=== PATIENT | male | born 1960 | race African-American/Black ===

== ENCOUNTER 2022-04-02 05:02 | Emergency (ER) | payer MEDICAID, SELFPAY ==
[2022-04-02 05:03] VITALS: BP 161/80; PULSE 67; RESP 18; TEMP 35.8; O2SAT 100; BMI 32.9
--- NOTE | 2022-04-02 05:17 | RAD_ITS ---
EXAM: XR CHEST, 1 VIEW CLINICAL INDICATION: chest pain TECHNIQUE: Frontal view of the chest. This report was created using [employer] report generation technology. COMPARISON: None. FINDINGS: LUNGS AND PLEURAL SPACES: Unremarkable. No consolidation or edema. No pneumothorax. No effusion. HEART: Unremarkable. Cardiac silhouette not enlarged. MEDIASTINUM: Central airways and mediastinal contour are unremarkable. BONES/JOINTS: Unremarkable. SOFT TISSUES: Unremarkable. RAD/Chest 1 View (Portable) IMPRESSION: No radiographic evidence of acute cardiopulmonary disease. Electronically Signed: Miles Wallace MD at 5:58 EST ,
--- NOTE | 2022-04-02 05:17 | EKG12_ITS ---
Test Reason : CP Blood Pressure : / mmHG Vent. Rate : 070 BPM Atrial Rate : 070 BPM P-R Int : 168 ms QRS Dur : 102 ms QT Int : 388 ms P-R-T Axes : 055 042 195 degrees QTc Int : 419 ms Normal sinus rhythm ST & T wave abnormality, consider lateral ischemia Abnormal ECG Confirmed by STEPHANIE MORSE, TATE ([id number]), supervising film or videotape editor ZENOBIA JAMESON ([id number]) on 04/04/2022 9:35:16 AM Referred By: CATHERINE Confirmed By:TATE BROWN MD
--- NOTE | 2022-04-02 05:18 | ED.VIS.CHEST ---
HPI History of Present Illness Chief Complaint: Chest Pain Narrative Narrative: 61-year-old male past medical history of coronary artery disease, states he has 3 stents in his coronary arteries that were placed a year and a half ago. He sees a veterinary poultry inspector in [place]. They recently moved to the area. He presents via EMS and with his son and daughter because he awoke 30 minutes ago with chest pressure that is different than his normal chest pressure. He states he has problems with chronic chest pain, and always has an 8 out of 10 pain. He is supposed to take nitroglycerin as needed. However, he states that this pain seems to be worse today and it woke him from sleep. He denies any nausea or vomiting. No fevers or chills. No cough. No diaphoresis. PFSH PFSH Allergy/AdvReac Type Severity Reaction Status Date / Time No Known Allergies Allergy Verified 04/02/22 05:03 Surgical History H/O heart artery stent Hx of cholecystectomy Social History Smoking Status: Never smoker ROS ROS ED ROS Narrative Constitutional: No fever, no chills. HEENT: No sore throat. No neck pain. No loss of vision. No rhinorrhea. Cardiovascular: Positive chest pain. No palpitations. No pedal edema. Respiratory: No cough, no shortness of breath. Abdominal: No abdominal pain. No nausea. No vomiting. Genitourinary: No dysuria. No hematuria. Musculoskeletal: No myalgias. No arthralgias. Neurologic: No headaches. No dizziness. No lightheadedness. Skin: No rash. No change in color. Psychiatric: No depression. No anxiety. EXAM Physical Exam Narrative Exam Narrative: Afebrile. Vital signs noted. HEENT: Normocephalic. Atraumatic. PERRL, EOMI. Neck soft and supple. No point tenderness or step off. Cardiovascular: Regular rate and rhythm. No murmurs, rubs, or gallops appreciated. Respiratory: No tachypnea. Lungs clear to auscultation bilaterally. Gastrointestinal: Abdomen soft, nontender, with normoactive bowel sounds. No rebound or guarding. Neurological: Awake. Alert. Nonfocal, nonlateralizing. Skin: No rash. Normal color. No pallor. Musculoskeletal: No pedal edema. Full range of motion extremities. Const Vital Signs: 04/02/22 05:03 04/02/22 05:14 04/02/22 05:19 Temperature 96.4 F L Temperature Source Temporal Pulse Rate 67 Respiratory Rate 18 Respiratory Effort Normal Respiratory Pattern Normal Blood Pressure 161/80 H Blood Pressure Mean 107 Pulse Ox 100 Oxygen Delivery Method Room Air Room Air 04/02/22 05:35 Temperature Temperature Source Pulse Rate 75 Respiratory Rate Respiratory Effort Respiratory Pattern Blood Pressure 142/80 H Blood Pressure Mean Pulse Ox Oxygen Delivery Method Heart Score History: Slightly/Non-Suspicious ECG: Normal Age: >45 - <65 years Risk Factors: >/= 3 Risk Factors or History of CAD Score: 3 MDM MDM MDM Narrative Medical decision making narrative: Chest pain work-up was pursued. EKG was obtained and interpreted by myself. EKG demonstrates normal sinus rhythm at 70 bpm without ectopy or acute ST changes. No STEMI. There is no prior with which to compare. He was administered aspirin and nitroglycerin. Pulse ox is 100% on room air. I have less concern for pulmonary embolism as he is not tachycardic, and is satting 100% on room air. I will obtain a chest x-ray and laboratories including troponin. I reviewed the patient's laboratory work. He has a slightly elevated white count of 11.7 which I think is nonspecific, hemoglobin normal at 13.3, platelet count normal at 212. BMP is remarkable for a chloride of 109, normal creatinine of 1.0, glucose appropriately elevated at 101. Normal anion gap of 6. Initial high-sensitivity troponin is 72, which is at the upper end of normal, but still below 78 for male. My interpretation of his chest x-ray shows no acute process. Upon repeat examination at approximately 0605, he is resting comfortably on the cot. At this point in time, he will be signed out to the oncoming physician to check the repeat troponin and make final disposition on this patient. It was felt that should his delta troponin be less than 7, or as long as his troponin does not return positive, that he could be discharged to follow-up with cardiology. Disposition is currently pending repeat troponin in 2 hours. Patient is in stable condition. Lab Data Attestation: I reviewed the patient's lab results. Labs: Laboratory Results - last 24 hr 04/02/22 04/02/22 05:15 05:15 WBC 11.7 H RBC 4.16 L Hgb 13.3 Hct 39.9 L MCV 95.9 H MCH 32.0 MCHC 33.3 RDW Std Deviation 46.1 H RDW Coeff of Subhash 13.2 Plt Count 212 MPV 10.4 Immature Gran % (Auto) 0.300 Neut % (Auto) 42.9 L Lymph % (Auto) 47.8 H [place] % (Auto) 7.5 Eos % (Auto) 1.2 Baso % (Auto) 0.3 Absolute Neuts (auto) 5.0 Absolute Lymphs (auto) 5.59 H Nucleated RBC % 0 Differential Comment SCANNED Sodium 144 Potassium 3.7 Chloride 109 H Carbon Dioxide 29.0 Anion Gap 6 BUN 8 Creatinine 1.00 Estim Creat Clear Calc 84.71 Est GFR (MDRD) Af Amer 98 Est GFR (MDRD) Non-Af 81 BUN/Creatinine Ratio 8.0 L Glucose 101 Calcium 9.5 Troponin I High Sens 72 Radiography Diagnostic Testing: Clinical Impression(s) from Imaging Studies Chest X-Ray 04/02/22 05:17 IMPRESSION: No radiographic evidence of acute cardiopulmonary disease. Electronically Signed: Miles Wallace MD at 5:58 EST , Discharge Plan Triage Chief Complaint: Chest Pain ED Provider: Sadi Hall Dx/Rx/DC Orders Primary Care Provider: Care Physician,No Primary Referrals: Care Physician,No Primary [Primary Care Provider] -
[2022-04-02 05:23] LABS: Absolute Lymphocyte Count 5.59 X10^3/uL (0.83-4.51); Basophil# 0.03 X10^3/uL; Basophil% 0.3 % (0-1); Eosinophil# 0.14 X10^3/uL; Eosinophils% 1.2 % (0-5); Hematocrit 39.9 % (40-54); Hemoglobin 13.3 g/dL (13.0-16.5); Lymphocyte # 5.59 X10^3/ul (0.83-4.51); Lymphocyte % 47.8 % (19-41); Mean Corp Hgb Conc 33.3 g/dL (32-36); Mean Corpuscular Volume 95.9 fL (80-94); Mean Platelet Vol. 10.4 fl (6.2-12.0); Monocyte# 0.88 X10^3/uL; Monocyte% 7.5 % (0-10); NRBC Flagged by Analyzer 0 % (0-5); Neutrophil # 5.02 X10^3/uL (2.7-7.7); Neutrophil % 42.9 % (47-70); POSITIVE DIFFERENTIAL YES; Platelet Count 212 K/mm3 (150-450); RBC Distribution Width CV 13.2 % (11.6-14.6); RBC Distribution Width SD 46.1 fl (35.1-43.9); Red Blood Count 4.16 M/mm3 (4.6-6.2); White Blood Count 11.7 K/mm3 (4.4-11.0)
[2022-04-02] MEDS: Aspirin 81 MG TAB.CHEW 324 MG PO (05:24)
[2022-04-02 05:26] LABS: Differential Indicated SCAN CRITERIA MET
[2022-04-02 05:35] VITALS: BP 142/80; PULSE 75
[2022-04-02] MEDS: Nitroglycerin SL (ED/IMG/CATH) 0.4 MG TABLET SL ×2 (05:35→06:05)
[2022-04-02 05:41] LABS: Anion Gap 6 (5-15); BUN 8 mg/dL (7-18); Calcium,Total 9.5 mg/dL (8.5-10.1); Chloride 109 mmol/L (98-107); EST Glomerular Filtration Rate 81 mL/min (>60); Est Glom Filt Rate - Afr Amer 98 mL/min (>60); Estimated Creatinine Clearance 84.71 ml/min; Glucose 101 mg/dL (74-106); Potassium 3.7 mmol/L (3.5-5.1); Sodium Level 144 mmol/L (136-145); Troponin-I HS (w/2H Reflex) 72 pg/mL (3.0-78.0)
[2022-04-02 05:44] LABS: Differential Comment SCANNED
[2022-04-02 06:05] VITALS: BP 148/87; PULSE 65
--- NOTE | 2022-04-02 06:16 | ED.RN ---
PATIENT DAISY [phone]
[2022-04-02 06:58] VITALS: BP 130/80; PULSE 57; RESP 18; O2SAT 95
[2022-04-02 07:21] LABS: Reflex Troponin-HS? (from REC) Y
[2022-04-02 07:44] LABS: Troponin-I HS 69 pg/mL (3.0-78.0)
[2022-04-02 07:56] VITALS: BP 135/64; PULSE 55; RESP 16
== END 2022-04-02 08:54 | disposition home or self-care (01) ==
PROVIDERS: Emergency Provider Emergency Medicine; Visit Provider Emergency Medicine
DX: R07.9 Chest pain, unspecified (principal); I25.10 Atherosclerotic heart disease of native coronary artery without angina pectoris
CPT/HCPCS: 71045; 80048; 84484; 85025; 93005; 99285; A4216

== ENCOUNTER 2022-04-12 19:08 | Emergency (ER) | payer MEDICAID, SELFPAY ==
[2022-04-12 19:12] VITALS: BP 147/63; PULSE 58; RESP 18; TEMP 36.8; O2SAT 100; BMI 32.5
[2022-04-12 19:43] LABS: Absolute Lymphocyte Count 4.48 X10^3/uL (0.83-4.51); Basophil# 0.03 X10^3/uL; Basophil% 0.3 % (0-1); Eosinophils% 0.9 % (0-5); Hematocrit 38.8 % (40-54); Hemoglobin 12.7 g/dL (13.0-16.5); Lymphocyte # 4.48 X10^3/ul (0.83-4.51); Lymphocyte % 39.4 % (19-41); Mean Corp Hgb Conc 32.7 g/dL (32-36); Mean Corpuscular Hgb 31.9 pg (27.0-32.0); Mean Corpuscular Volume 97.5 fL (80-94); Mean Platelet Vol. 10.2 fl (6.2-12.0); Monocyte# 0.75 X10^3/uL; Monocyte% 6.6 % (0-10); NRBC Flagged by Analyzer 0 % (0-5); Neutrophil # 5.97 X10^3/uL (2.7-7.7); Neutrophil % 52.4 % (47-70); Platelet Count 250 K/mm3 (150-450); RBC Distribution Width CV 13.3 % (11.6-14.6); RBC Distribution Width SD 47.8 fl (35.1-43.9); Red Blood Count 3.98 M/mm3 (4.6-6.2); White Blood Count 11.4 K/mm3 (4.4-11.0)
[2022-04-12] MEDS: Lidocaine 2% (20 ml mdv) 20 ML Vial INFILT (19:51)
[2022-04-12 19:57] LABS: Anion Gap 4 (5-15); BUN 7 mg/dL (7-18); BUN/Creat Ratio 8.3 RATIO (10-20); Calcium,Total 9.3 mg/dL (8.5-10.1); Chloride 109 mmol/L (98-107); Creatinine, Serum 0.84 mg/dL (0.70-1.30); EST Glomerular Filtration Rate 99 mL/min (>60); Est Glom Filt Rate - Afr Amer 120 mL/min (>60); Estimated Creatinine Clearance 100.85 ml/min; Glucose 99 mg/dL (74-106); Potassium 4.1 mmol/L (3.5-5.1); Sodium Level 143 mmol/L (136-145)
--- NOTE | 2022-04-12 21:01 | CM.ED ---
DAVID Note Referral Source: MD Wagoner Referral Reason: resources MD Wagoner met with DAVID to review patient's symptoms and current concerns as well as need for additional resources as he is new to the area. SW to follow up. DAVID met with patient and patient's guest and introduced herself and role as [facility] Litigation Counsel. DAVID requested permission to talk to patient with guests present, patient identified them has his daughter and son and agreed for SW to speak with them present as they help provide his care. Patient states he is new to [place] from [place] and his son is his main support, however, his son works a lot. Patient voiced concerns regarding his PCP being in [place], needing transportation for appointments and wanting help at home. Patient's son also voiced concerns regarding patient needing support at home when he is working and patient's daughter is unable to help. SW to follow up with resources. DAVID met with patient and family and provided them with information for [facility] services, [facility] resource list, private duty C list, PCP list in network accepting new patients in [place], medical alert options as well as information regarding [facility]. DAVID explained due to patient's age there are some programs he may not qualify for now but should qualify as he gets into his 60s. Patient and patient's daughter were present and receptive towards information. No other needs voiced at this time. DAVID informed of resources provided. Holly VENTURA. VICKY
--- NOTE | 2022-04-12 21:17 | EDS_ITS ---
HPI History of Present Illness Chief Complaint: General Illness [facility] PFS Home Medications atorvastatin 40 mg tablet 40 mg DAILY 04/12/22 [History Last Taken Unknown] atorvastatin 40 mg tablet 40 mg PO DAILY #30 tabs 04/12/22 [Rx Last Taken Unknown] carvedilol 6.25 mg tablet 6.25 mg DAILY 04/12/22 [History Last Taken Unknown] carvedilol 6.25 mg tablet 6.25 mg PO BID #60 tabs 04/12/22 [Rx Last Taken Unknown] cholecalciferol (vitamin D3) 125 mcg (5,000 unit) capsule 10,000 unit DAILY 04/12/22 [History Last Taken Unknown] clopidogrel 75 mg tablet 75 mg DAILY 04/12/22 [History Last Taken Unknown] clopidogrel 75 mg tablet 75 mg PO DAILY #30 tabs 04/12/22 [Rx Last Taken Unknown] folic acid 1 mg tablet 1 mg DAILY 04/12/22 [History Last Taken Unknown] folic acid 1 mg tablet 1 mg PO DAILY #30 tabs 04/12/22 [Rx Last Taken Unknown] potassium chloride 20 mEq tablet,extended release(part/cryst) 20 meq PO DAILY 04/12/22 [History Last Taken Unknown] pyridoxine (vitamin B6) 100 mg tablet 100 mg DAILY 04/12/22 [History Last Taken Unknown] pyridoxine (vitamin B6) 100 mg tablet 100 mg PO DAILY #30 tabs 04/12/22 [Rx Last Taken Unknown] Allergy/AdvReac Type Severity Reaction Status Date / Time No Known Allergies Allergy Verified 04/12/22 19:16 Surgical History H/O heart artery stent Hx of cholecystectomy Social History Smoking Status: Never smoker EXAM Physical Exam Const Vital Signs: 04/12/22 19:12 04/12/22 19:16 Temperature 98.3 F Temperature Source Temporal Pulse Rate 58 L Respiratory Rate 18 Respiratory Effort Normal Respiratory Pattern Normal Blood Pressure 147/63 H Blood Pressure Mean 91 Pulse Ox 100 Oxygen Delivery Method Room Air MDM MDM MDM Narrative Medical decision making narrative: Patient is a poor informant. He is new to the area. There is no records for review. In light of his constellation of symptoms will obtain baseline blood work to assess white count, rule out anemia, rule out renal dysfunction. Patient does have a right proximal volar/medial right arm abscess. There is no surrounding cellulitis. Patient has scars from prior incision and drainage of abscesses. There is no axillary lymphadenopathy. Will require I&D. Patient was concerned he had an abscess in the left axilla. Patient has shotty lymph nodes in the left axilla. There is no fluctuant area. There is no erythema, warmth or induration. Case management did speak with him. Patient and family were given paperwork regarding services available in [facility]. Lab Data Attestation: I reviewed the patient's lab results. Lab results narrative: White count is slightly elevated with no shift. This is insignificant. Patient does have mild macrocytic anemia. Basic meta was unremarkable with no diabetes Labs: Laboratory Results - last 24 hr 04/12/22 04/12/22 19:38 19:38 WBC 11.4 H RBC 3.98 L Hgb 12.7 L Hct 38.8 L MCV 97.5 H MCH 31.9 MCHC 32.7 RDW Std Deviation 47.8 H RDW Coeff of Subhash 13.3 Plt Count 250 MPV 10.2 Immature Gran % (Auto) 0.400 Neut % (Auto) 52.4 Lymph % (Auto) 39.4 [place] % (Auto) 6.6 Eos % (Auto) 0.9 Baso % (Auto) 0.3 Absolute Neuts (auto) 6.0 Absolute Lymphs (auto) 4.48 Nucleated RBC % 0 Sodium 143 Potassium 4.1 Chloride 109 H Carbon Dioxide 30.0 Anion Gap 4 L BUN 7 Creatinine 0.84 Estim Creat Clear Calc 100.85 Est GFR (MDRD) Af Amer 120 Est GFR (MDRD) Non-Af 99 BUN/Creatinine Ratio 8.3 L Glucose 99 Calcium 9.3 Procedures Other Procedures Procedure(s): Patient had an I&D of proximal medial right arm subcutaneous abscess. Patient was prepped up sterile manner. The area anesthetized by local anesthesia infiltration and field block. Incision was made with 10 blade. Length of incision 1.5 cm. 3 cm of green purulent material was noted. Since patient does not have diabetes is on no immunosuppressive meds and there is no evidence of cellulitis antibiotics are not indicated. Will obtain med list from [facility] in [place] and refill since he has none. Discharge Plan Triage Chief Complaint: General Illness ED Provider: Jon Wagoner Dx/Rx/DC Orders Clinical Impression: Abscess of arm, right, History of hypertension, History of hypercholesterolemia, Prescription refill Instructions: ED Abscess Incision And Drainage Prescriptions: New atorvastatin 40 mg tablet 40 mg PO DAILY Qty: 30 0RF carvedilol 6.25 mg tablet 6.25 mg PO BID Qty: 60 0RF Rx Instructions: must administer with a meal/food clopidogrel 75 mg tablet 75 mg PO DAILY Qty: 30 0RF folic acid 1 mg tablet 1 mg PO DAILY Qty: 30 0RF pyridoxine (vitamin B6) 100 mg tablet 100 mg PO DAILY Qty: 30 0RF No Action atorvastatin 40 mg tablet 40 mg DAILY Label Comments: take 1 tablet by mouth daily carvedilol 6.25 mg tablet 6.25 mg DAILY Label Comments: take 1 tablet by mouth twice a day with meals clopidogrel 75 mg tablet 75 mg DAILY Label Comments: take 1 tablet by mouth once daily potassium chloride 20 mEq tablet,ER particles/crystals 20 meq PO DAILY Label Comments: take 1 tablet by mouth once daily folic acid 1 mg tablet 1 mg DAILY Label Comments: take 1 tablet by mouth once daily pyridoxine (vitamin B6) 100 mg tablet 100 mg DAILY Label Comments: take 1 tablet by mouth daily cholecalciferol (vitamin D3) 125 mcg (5,000 unit) capsule 10,000 unit DAILY Label Comments: take 2 capsules by mouth once daily Primary Care Provider: Jose Stubbs Referrals: Jose Stubbs, DO [Primary Care Provider] - 3-5 Days if not improving Disposition Disposition: Home, Self Care
== END 2022-04-12 21:59 | disposition home or self-care (01) ==
PROVIDERS: Emergency Provider Emergency Medicine; PCP Family Medicine; Visit Provider Emergency Medicine
DX: L02.413 Cutaneous abscess of right upper limb (principal); I10 Essential (primary) hypertension; E78.00 Pure hypercholesterolemia, unspecified; Z79.899 Other long term (current) drug therapy
CPT/HCPCS: 10060; 80048; 85025; 99285; A4216

== ENCOUNTER 2022-04-27 01:59 | Observation (INO) | payer MEDICAID, SELFPAY ==
[2022-04-27] VITALS (12 sets, daily range): BP systolic 109–143; BP diastolic 47–81; PULSE 53–74; RESP 15–18; TEMP 36.3–37.1; O2SAT 92–100; BMI 32.1; BMI 31.1; BMI 31.3
--- NOTE | 2022-04-27 02:19 | CT_ITS ---
INDICATION: pain diffuse EXAMINATION: CT ABDOMEN AND PELVIS WITH CONTRAST - CT Abdomen And Pelvis W/ Contrast Injection TECHNIQUE: Helically acquired images were obtained of the abdomen and pelvis following IV contrast. A radiation dose optimization technique was used for this scan. IV Contrast dosage and agent: Oral contrast: None. COMPARISON: None. FINDINGS: Image degradation from positioning with arms alongside and overlying objects monitoring devices. LOWER CHEST: Unremarkable. LIVER: Unremarkable. GALLBLADDER/BILE DUCTS: Gallbladder surgically absent. PANCREAS: Unremarkable. SPLEEN: Unremarkable. ADRENAL GLANDS: Unremarkable. KIDNEYS / URETERS: Unremarkable. BOWEL / MESENTERY: Unremarkable. No bowel obstruction. APPENDIX: Not identified. PERITONEUM: No free air. No free fluid. VESSELS: Abdominal aorta is normal caliber. RETROPERITONEUM: Prominent lymph nodes along the iliac chain pelvic sidewall bilaterally.. REPRODUCTIVE ORGANS: Unremarkable. BLADDER: Unremarkable. ABDOMINAL WALL: Mild stranding subcutaneous lower anterior abdominal wall with skin thickening. Prominent inguinal lymph nodes bilaterally. BONES: No acute abnormality. OTHER: None. CT/Abdomen/Pelvis W IV Cont ONLY IMPRESSION: No acute intra-abdominal findings. Mild skin thickening and subcutaneous stranding lower anterior abdominal wall question cellulitis. Inguinal and pelvic adenopathy possibly reactive. Follow-up suggested. Electronically Signed: Milvia Crowley MD at 4:02 [facility] ,
--- NOTE | 2022-04-27 02:20 | RAD_ITS ---
INDICATION: chest pain EXAMINATION/TECHNIQUE: X-RAY - XR Chest 1 View AP portable. 2:51 AM COMPARISON: 04/02/2022 FINDINGS: LINES/DEVICES: None. LUNGS: No consolidation. No pneumothorax. MEDIASTINUM: Unremarkable. CARDIAC SILHOUETTE: Not enlarged. BONES AND SOFT TISSUES: No acute abnormalities. RAD/Chest 1 View (Portable) IMPRESSION: No acute findings. Electronically Signed: Milvia Crowley MD at 3:21 EST ,
--- NOTE | 2022-04-27 02:20 | EKG12_ITS ---
Test Reason : DYSRHYTHMIA Blood Pressure : / mmHG Vent. Rate : 057 BPM Atrial Rate : 057 BPM P-R Int : 126 ms QRS Dur : 096 ms QT Int : 442 ms P-R-T Axes : 040 044 039 degrees QTc Int : 430 ms Sinus bradycardia Left ventricular hypertrophy with repolarization abnormality Abnormal ECG Confirmed by STEPHANIE MORSE, TATE ([id number]), medical editor ZENOBIA JAMESON ([id number]) on 04/27/2022 9:07:02 AM Referred By: BB Confirmed By:TATE BROWN MD
--- NOTE | 2022-04-27 02:22 | EX.ED.DYSGE1 ---
HPI History of Present Illness Chief Complaint: Alt LOC Informant: patient, family (both sons present) and EMS Onset/Context/Timing Onset: Today (JPTA) Narrative Narrative: Patient had a couple syncopal episodes tonight and was complaining of chest discomfort in between them, receiving a dose of nitroglycerin from family as a result. History was challenging to obtain and disconnected from the sons, who help care for their father at home. Father can walk with a walker, but they generally do not let him get around unsupervised. 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 Patient also states he has been having some abdominal pain for the past couple days but he cannot tell me anything else about it. He denies any nausea right now or diarrhea recently or bleeding from anywhere. It seems that EMS was called tonight because the patient was not feeling well, apparently locked up his extremities and was in pain, not able to move them but able to speak. Then, he was sitting up in his bed, and when one of the particular sons got there to check on him, he was not responding, in and out of consciousness for a minute or so, he gradually came around, there was no clonic seizure activity, son was rubbing his chest and trying to stimulate him. When he was awake, they asked him questions and he seemed confused about things he should know such as his age, he told them he had chest discomfort, so was given a nitroglycerin. They called 911. Patient had another lapse in consciousness and appeared to pass out while sitting there, for about 45 seconds and then came to again, again no seizure activity or other particular issues noted. Right now the patient states that he feels stiff all over and that is his main complaint, and everything hurts. When asking about chest discomfort he states he has it a little but it is not nearly as bad as it was earlier, and the abdominal complaints as well. No falls or injuries noted. Patient denies a headache. In looking at his stiffness of all 4 extremities right now, family states this is very common for him but not like this, and he usually gets locking up of his extremities temporarily, but not for extended period of time like this, they state yesterday he was walking well with his walker but there is no way he would be able to do that like this; they were also concerned that he may be having a heart attack. Patient used to live in [place]. He now lives with his sons here. All of his care previously was in [place], when the patient lives with his , but they split up. The sons do not know any details about his medical history neither does the patient he was a very poor historian. They state they think he had a stroke in the past and they know he had a heart attack and has a stent. PFSH PFSH Medical History CAD (coronary artery disease) Cannabis use disorder Hyperlipidemia Hypertension Obesity Stroke Tobacco use Home Medications atorvastatin 40 mg tablet 40 mg PO DAILY #30 tabs 04/12/22 [Rx Last Taken Unknown] carvedilol 6.25 mg tablet 6.25 mg PO BID #60 tabs 04/12/22 [Rx Last Taken Unknown] cholecalciferol (vitamin D3) 125 mcg (5,000 unit) capsule 10,000 unit DAILY 04/12/22 [History Last Taken Unknown] clopidogrel 75 mg tablet 75 mg PO DAILY #30 tabs 04/12/22 [Rx Last Taken Unknown] folic acid 1 mg tablet 1 mg PO DAILY #30 tabs 04/12/22 [Rx Last Taken Unknown] potassium chloride 20 mEq tablet,extended release(part/cryst) 20 meq PO DAILY 04/12/22 [History Last Taken Unknown] pyridoxine (vitamin B6) 100 mg tablet 100 mg PO DAILY #30 tabs 04/12/22 [Rx Last Taken Unknown] nitroglycerin 0.4 mg sublingual tablet 0.4 mg sublingual PRN PRN CP 04/27/22 [History Last Taken Unknown] nystatin 100,000 unit/gram topical powder (Nyamyc) 100,000 unit topical DAILY 04/27/22 [History Last Taken Unknown] Allergy/AdvReac Type Severity Reaction Status Date / Time No Known Allergies Allergy Verified 04/12/22 19:16 Family History (Updated 04/27/22 @ 05:[address] Carolyn Lind MD) Mother Hypertension Diabetes Aunt Diabetes Surgical History (Updated 04/27/22 @ 05:[address] Carolyn Lind MD) H/O heart artery stent Hx of cholecystectomy Social History (Updated 04/27/22 @ 05:[address] Carolyn Lind MD) household members: family Smoking Status: Former smoker how long ago did patient quit smoking: Quit ~ 2 wks prior to presentation, intermittent Black & Milds since teen. alcohol intake: current alcohol intake frequency: holidays/special occasions only substance use type: marijuana ROS ROS ED Constitutional Constitutional ED: Denies chills or fever(s) Eyes Eyes: Denies change in vision or diplopia ENT ENT ED: Denies rhinorrhea or sore throat Cardiovascular Cardiovascular: Reports chest pain and syncope; Denies palpitations Respiratory/Chest Respiratory/Chest: Denies cough or dyspnea Gastrointestinal Gastrointestinal: Denies diarrhea, nausea or vomiting Genitourinary Genitourinary ED: Denies dysuria or hematuria Musculoskeletal Musculoskeletal: Reports extremity pain; Denies back pain or neck pain Integumentary Reports abscess; Denies rash Neurologic Neurologic: Reports as per HPI and weakness; Denies headache(s) or paresthesias Psychiatric Psychiatric: Denies anxiety or suicidal thoughts EXAM Physical Exam Const Vital Signs: 04/27/22 02:00 04/27/22 02:39 04/27/22 03:00 Temperature 97.9 F Temperature Source Oral Pulse Rate 62 59 L Respiratory Rate 16 16 Blood Pressure 143/81 H 132/71 H Blood Pressure Mean 101 91 Pulse Ox 92 97 97 Oxygen Delivery Method Room Air Room Air Room Air 04/27/22 04:00 Temperature Temperature Source Pulse Rate 63 Respiratory Rate 16 Blood Pressure 123/74 H Blood Pressure Mean 90 Pulse Ox 96 Oxygen Delivery Method Room Air Positive well nourished and well developed General Appearance ED: well developed and NAD HEENT Reports moist mucous membranes normocephalic and atraumatic Eyes PERRL and EOMs intact bilaterally Neck full ROM, no lymphadenopathy, supple and no JVD Chest Wall inspection of chest normal and palpation of chest normal Resp normal respiratory effort and clear to auscultation bilaterally Cardio regular rate, regular rhythm and no murmurs GI non-distended GI Narrative: Diffuse tenderness without guarding or rebound. Small pustule with a scant amount of discharge in the mons pubis area no associated abscess requiring drainage. Auscultation: normoactive bowel sounds Palpation: soft Back/Spine no CVA tenderness General Back: other FROM Extremity normal to inspection Extremity Narrative: High tone in all 4 extremities. Able to move them, but limited, and when he does move them he complains of pain further limiting movement. General Extremety ED: Negative for edema, pulses abnormal or tenderness General Extremity: Negative for edema or pulses abnormal Neuro oriented x3, CN's II-XII intact bilaterally and no sensory deficits noted Neuro Narrative: High tone and difficulty moving all 4 extremities, but his motor activity is symmetric Sensorium / Orientation: awake and alert Skin Skin Narrative: Small nontender abscess right axilla, I can express purulent drainage from it with palpation. No surrounding cellulitis. Smaller 1 without expressible discharge mons pubis see above. MDM MDM MDM Narrative Medical decision making narrative: From what I can tell the concern here is that the patient had syncope as well as chest discomfort. 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 Therefore a CT of the head was obtained but I did not call a stroke team because he is not a tPA candidate with all of this, NIHSS really was not possible because of the limited ability to perform motor exam of his extremities and move them due to pain. With regards to speech and face motor/sensory, he did not have any positive scores here. Cardiac work-up shows a troponin that is slightly elevated. His EKG did not show an acute injury and was unchanged compared with his old. Chest x-ray 1 view on my interpretation shows no evidence of pneumonia and radiology in agreement. I did a CT of his abdomen and pelvis as well given his diffuse tenderness and pain, it basically is consistent with cellulitis around the area where he has a small pustule, no collection was seen and there was some reactive lymphadenopathy seen in the abdomen, nothing else. I agree with the radiologist interpretation after I Reviewed the images myself. I am given him vancomycin because the infection in his right axilla which was drained a couple of weeks ago is purulent and I am covering him for MRSA. I am discussing with hospitalist to admit him for further cardiac evaluation given all of this and his history. Lab Data Attestation: I reviewed the patient's lab results. Labs: Laboratory Results - last 24 hr 04/27/22 04/27/22 04/27/22 02:37 02:37 02:37 WBC 11.5 H RBC 3.98 L Hgb 12.9 L Hct 38.8 L MCV 97.5 H MCH 32.4 H MCHC 33.2 RDW Std Deviation 50.7 H RDW Coeff of Subhash 14.1 Plt Count 249 MPV 10.0 Immature Gran % (Auto) 0.300 Neut % (Auto) 56.1 Lymph % (Auto) 35.2 [place] % (Auto) 7.3 Eos % (Auto) 0.8 Baso % (Auto) 0.3 Absolute Neuts (auto) 6.5 Absolute Lymphs (auto) 4.05 Nucleated RBC % 0 Sodium 144 Potassium 3.9 Chloride 107 Carbon Dioxide 30.0 Anion Gap 7 BUN 9 Creatinine 1.00 Estim Creat Clear Calc 84.71 Est GFR (MDRD) Af Amer 98 Est GFR (MDRD) Non-Af 81 BUN/Creatinine Ratio 9.0 L Glucose 114 H Calcium 9.5 Magnesium 2.1 Total Bilirubin 0.70 AST 14 L ALT 19 Alkaline Phosphatase 101 Total Creatine Kinase 131 Troponin I High Sens 80 H Total Protein 7.8 Albumin 3.9 Globulin 3.9 Albumin/Globulin Ratio 1.0 Lipase 262 Radiography Diagnostic Testing: Clinical Impression(s) from Imaging Studies Abdomen/Pelvis CT 04/27/22 02:19 IMPRESSION: No acute intra-abdominal findings. Mild skin thickening and subcutaneous stranding lower anterior abdominal wall question cellulitis. Inguinal and pelvic adenopathy possibly reactive. Follow-up suggested. Electronically Signed: Milvia Crowley MD at 4:02 EST Reading Location ID and State: [id number] / [place] Tel , Service support , Chest X-Ray 04/27/22 02:20 IMPRESSION: No acute findings. Electronically Signed: Milvia Crowley MD at 3:21 EST , Brain CT 04/27/22 02:46 IMPRESSION: No acute abnormality. CT angiogram and/or MRI may be helpful to evaluate for acute infarct as clinically indicated. Electronically Signed: Milvia Crowley MD at 3:57 EST Reading Location ID and State: [id number] / [place] Tel , Service support , Rhythm Strip Rhythm Strip: Sinus Rhythm Rate: 60 Ectopy: None EKG Initial EKG: Attestation: I personally reviewed and interpreted this EKG as follows: Interpretation: Sinus Rhythm, No Acute Injury Pattern and Non-Specific ST Changes (inf-lat) Prior EKG tracings: available for review Prior: Unchanged Follow-up EKG: Attestation: I personally reviewed and interpreted this EKG as follows: Interpretation: Sinus Rhythm, No Acute Injury Pattern and Non-Specific ST Changes Prior: Unchanged Discharge Plan Dx/Rx/DC Orders Clinical Impression: Syncope, Chest pain, Abnormal increased muscle tone Disposition Disposition: Acute Care Hospital [facility]
[2022-04-27 02:42] LABS: Absolute Lymphocyte Count 4.05 X10^3/uL (0.83-4.51); Absolute Neutrophil Count 6.5 X10^3/uL (2.0-7.7); Basophil# 0.03 X10^3/uL; Basophil% 0.3 % (0-1); Eosinophil# 0.09 X10^3/uL; Eosinophils% 0.8 % (0-5); Hematocrit 38.8 % (40-54); Hemoglobin 12.9 g/dL (13.0-16.5); Lymphocyte # 4.05 X10^3/ul (0.83-4.51); Lymphocyte % 35.2 % (19-41); Mean Corp Hgb Conc 33.2 g/dL (32-36); Mean Corpuscular Hgb 32.4 pg (27.0-32.0); Mean Corpuscular Volume 97.5 fL (80-94); Monocyte# 0.84 X10^3/uL; Monocyte% 7.3 % (0-10); NRBC Flagged by Analyzer 0 % (0-5); Neutrophil # 6.45 X10^3/uL (2.7-7.7); Neutrophil % 56.1 % (47-70); Platelet Count 249 K/mm3 (150-450); RBC Distribution Width CV 14.1 % (11.6-14.6); RBC Distribution Width SD 50.7 fl (35.1-43.9); Red Blood Count 3.98 M/mm3 (4.6-6.2); White Blood Count 11.5 K/mm3 (4.4-11.0)
[2022-04-27] MEDS: Morphine 4 MG/ML Syringe IV (02:43)
--- NOTE | 2022-04-27 02:46 | CT_ITS ---
INDICATION: syncope, temporary paralysis, hx cva EXAMINATION: CT BRAIN - CT Head or Brain W/O Contrast Injection TECHNIQUE: Multiple axial images were obtained of the head without intravenous contrast. A radiation dose optimization technique was used for this scan. IV Contrast dosage and agent: None. COMPARISON: FINDINGS: BRAIN: No acute bleed. No edema. Villalobos-white matter differentiation is maintained. Arterial calcifications. VENTRICLES AND SULCI: Not dilated. EXTRA-AXIAL: No hemorrhage, fluid collection, or mass. CALVARIUM / SKULL BASE: Unremarkable. FACE/SINUSES: Unremarkable. Postsurgical changes of the right globe. SOFT TISSUES: Unremarkable. CT/Brain/Head without Contrast IMPRESSION: No acute abnormality. CT angiogram and/or MRI may be helpful to evaluate for acute infarct as clinically indicated. Electronically Signed: Milvia Crowley MD at 3:57 EST ,
[2022-04-27 03:02] LABS: AST(SGOT) 14 U/L (15-37); Alanine Aminotransfer ALT/SGPT 19 U/L (16-61); Albumin, Serum 3.9 g/dL (3.2-5.0); Alkaline Phosphatase 101 U/L (45-117); Anion Gap 7 (5-15); BUN 9 mg/dL (7-18); Calcium,Total 9.5 mg/dL (8.5-10.1); Chloride 107 mmol/L (98-107); EST Glomerular Filtration Rate 81 mL/min (>60); Est Glom Filt Rate - Afr Amer 98 mL/min (>60); Estimated Creatinine Clearance 84.71 ml/min; Globulin 3.9 g/dL (2.2-4.2); Glucose 114 mg/dL (74-106); Lipase 262 U/L (73-393); Potassium 3.9 mmol/L (3.5-5.1); Protein, Total 7.8 g/dL (6.4-8.2); Sodium Level 144 mmol/L (136-145); Troponin-I HS (w/2H Reflex) 80 pg/mL (3.0-78.0)
[2022-04-27] MEDS: Aspirin 81 MG TAB.CHEW 324 MG PO (04:02)
--- NOTE | 2022-04-27 04:26 | EKG12_ITS ---
Test Reason : DYSRHYTHMIA Blood Pressure : / mmHG Vent. Rate : 060 BPM Atrial Rate : 060 BPM P-R Int : 166 ms QRS Dur : 100 ms QT Int : 438 ms P-R-T Axes : 041 042 053 degrees QTc Int : 438 ms Normal sinus rhythm Normal ECG Confirmed by STEPHANIE MORSE, TATE ([id number]), index editor ZENOBIA JAMESON ([id number]) on 04/29/2022 12:45:08 PM Referred By: BB Confirmed By:TATE BROWN MD
[2022-04-27 04:40] LABS: Reflex Troponin-HS? (from REC) Y
[2022-04-27 05:01] LABS: CPK Total, Creatine Kinase 131 U/L (39-308); Magnesium 2.1 mg/dL (1.6-2.6)
--- NOTE | 2022-04-27 05:19 | HP.PCM_ITS ---
HPI - General General Date of Admission: 04/27/22 Date of Service: 04/27/22 Chief Complaint: Syncopal events, unresponsive episodes, abdominal pain. HPI Narrative The patient is a 61 y/o M w/ PMHx: CAD s/p PCI, HTN, HLD, Hx CVA, Tobacco use, Cannabis daily use who presents to the [facility] ED on 04/27/22 with history of family reported syncopal events on evening prior to presentation with noted chest discomfort in addition to vague abdominal discomfort which has been ongoing for the last 2 to 3 days with no nausea, emesis, diarrhea and apparently appropriately tolerating oral intake but evening prior to ED presentation reportedly was not feeling well with from description muscular spasms with associated pain and supposedly unable to speak with periods of nonresponsive status with no obvious tonic/clonic seizure activity eventually slowly improving but did seem confused initially prompting eventual ED evaluation. Per family patient had another episode with lapse in consciousness and appeared to potentially pass out while seated lasting approximately 1 minute and eventually came to with no seizure activity again visualized. Patient does report drainage from the R axilla and has had mcfp issues with hidradenitis. In the ED the patient himself feels as though he is very stiff. Reportedly he was walking the day prior with a walker. Patient does report that his chest discomfort was across his chest with radiation toward his back between his shoulder blades with mild dyspnea with no nausea or emesis or diaphoresis occurring suddenly and improving after several minutes. He again describes a discomfort in his chest as sharp and pressure-like and noted it was 10 out of 10 in severity when it occurred but currently when he is at rest denies any pain but with palpation on exam discomfort was completely reproducible and he notes this is similar to what he had had. Work-up in the ED included T97.9, heart rate 62, BP 143/81, respiratory rate initially 92 with improvement to 97% on room air, CBC with WC 11.5, hemoglobin 12.9, MCV 97.5, platelet 249 without marked shift, CMP with glucose 114 otherwise not marked appearing, troponin initial 80, lipase 262 EKG with sinus rhythm with nonspecific ST changes with no acute evidence of ischemia, CT brain with no acute intracranial findings, CT abdomen and pelvis with no acute intra-abdominal findings with questionable mild skin thickening and subcutaneous stranding in the lower anterior abdominal wall with questionable cellulitis as well as inguinal and pelvic adenopathy possibly reactive chest x-ray with no acute cardiopulmonary findings. In the ED patient ministered aspirin 324 mg p.o. x1 as well as morphine 4 mg IV x1 as well as IV vancomycin. PFSH Medical History CAD (coronary artery disease) Cannabis use disorder Hyperlipidemia Hypertension Obesity Stroke Tobacco use Home Medications atorvastatin 40 mg tablet 40 mg DAILY 04/12/22 [History Last Taken Unknown] atorvastatin 40 mg tablet 40 mg PO DAILY #30 tabs 04/12/22 [Rx Last Taken Unknown] carvedilol 6.25 mg tablet 6.25 mg DAILY 04/12/22 [History Last Taken Unknown] carvedilol 6.25 mg tablet 6.25 mg PO BID #60 tabs 04/12/22 [Rx Last Taken Unknown] cholecalciferol (vitamin D3) 125 mcg (5,000 unit) capsule 10,000 unit DAILY 04/12/22 [History Last Taken Unknown] clopidogrel 75 mg tablet 75 mg DAILY 04/12/22 [History Last Taken Unknown] clopidogrel 75 mg tablet 75 mg PO DAILY #30 tabs 04/12/22 [Rx Last Taken Unknown] folic acid 1 mg tablet 1 mg DAILY 04/12/22 [History Last Taken Unknown] folic acid 1 mg tablet 1 mg PO DAILY #30 tabs 04/12/22 [Rx Last Taken Unknown] potassium chloride 20 mEq tablet,extended release(part/cryst) 20 meq PO DAILY 04/12/22 [History Last Taken Unknown] pyridoxine (vitamin B6) 100 mg tablet 100 mg DAILY 04/12/22 [History Last Taken Unknown] pyridoxine (vitamin B6) 100 mg tablet 100 mg PO DAILY #30 tabs 04/12/22 [Rx Last Taken Unknown] Allergy/AdvReac Type Severity Reaction Status Date / Time No Known Allergies Allergy Verified 04/12/22 19:16 Family History (Updated 04/27/22 @ 05:[address] Carolyn Lind MD) Mother Hypertension Diabetes Aunt Diabetes other (Patient does not know any of his paternal history including HD, DM, CA.) Surgical History (Updated 04/27/22 @ 05:[address] Carolyn Lind MD) H/O heart artery stent Hx of cholecystectomy Social History (Updated 04/27/22 @ 05:[address] Carolyn Lind MD) household members: family Smoking Status: Former smoker how long ago did patient quit smoking: Quit ~ 2 wks prior to presentation, intermittent Black & Milds since teen. alcohol intake: current alcohol intake frequency: holidays/special occasions only substance use type: marijuana ROS ROS Narrative Admission Review of Systems: CONSTITUTIONAL: No weight loss, fever, chills, + weakness or fatigue. HEENT: Eyes: No visual loss, blurred vision, double vision or yellow sclerae. Ears, Nose, Throat: No hearing loss, sneezing, congestion, runny nose or sore throat. SKIN: No rash or itching, lesions, wounds. CARDIOVASCULAR: + chest pain, chest pressure or chest discomfort, possible syncopal event versus seizure, No palpitations, edema, orthopnea. RESPIRATORY: + shortness of breath, No cough or sputum, wheezing, hemoptysis. GASTROINTESTINAL: No anorexia, nausea, vomiting or diarrhea, abdominal pain, melena, BRBPR. GENITOURINARY: No dysuria, frequency, urgency or retention. NEUROLOGICAL: + Questionable syncopal event versus seizure, history CVA with diffuse debility described as generalized weakness to all extremities, no headache, dizziness, change in bowel or bladder control, seizure. MUSCULOSKELETAL: + muscle, back pain, joint pain or stiffness. HEMATOLOGIC: + anemia, bleeding or bruising. LYMPHATICS: No enlarged nodes. No history of splenectomy. PSYCHIATRIC: No history of depression or anxiety. ENDOCRINOLOGIC: No reports of sweating, cold or heat intolerance. No polyuria or polydipsia. ALLERGIES: No history of asthma, hives, eczema or rhinitis. Vital Signs Vital Signs Vital Signs: 04/27/22 02:00 04/27/22 02:39 Temperature 97.9 F Temperature Source Oral Pulse Rate 62 Respiratory Rate 16 Blood Pressure 143/81 H Blood Pressure Mean 101 Pulse Ox 92 97 Oxygen Delivery Method Room Air Room Air Weight Weight: 230 lb 6.129 oz Body Mass Index (BMI) 32.1 Physical Exam Narrative Physical Examination: General: Awake, alert, oriented x 3 and cooperative, seated upright in the ED bed, fatigued appearing but no acute distress. Skin: Normal color, normal turgor, no icterus, no cyanosis except noted bilateral lower extremity stasis skin changes, right axilla with evidence of no table hidradenitis with ability to express purulent material from various openings with no periwound erythema, suprapubic region with skin fold small abscess with minimal purulent material able to be expressed however there is tenderness to palpation of this region and noted induration but no overt erythema. HEENT: AT/NC, EOMI, PERRLA, mildly dry MM, poor dentition, no carotid bruits or JVD noted. Lungs: Mildly diminished, greater bases, appropriate effort, no rales, ronchi or wheezing. Heart: Regular rate and rhythm; no gallop, rub audible, able to reproduce anterior chest discomfort with palpation across the chest. Abdomen: Soft, with distraction no significant abdominal tenderness to palpation in all quadrants, more so tenderness to the suprapubic region where the mild skin induration is present, see skin, no marked distention, hyperactive bowel sounds, no obvious HSM but difficult as with manual palpation patient grimaces with palpation in all quadrants. Extremities: No cyanosis, clubbing, see skin, bilateral peripheral edema, not markedly pitting. Neurological: Patient awake, alert, oriented as noted, cognitive function appears baseline intact; pupils equally reactive to light and accommodation, cranial nerves grossly normal, moving all 4 extremities with generalized weak ness, no specific focal deficits, sensation intact, speech more fluid with discussions as initially had been reticent. Psychiatric: Affect appears flat, fatigued, no acute evidence of depressive or anxiety feelings. Results Lab / Micro Data Result Diagrams: 04/27/22 02:37 04/27/22 02:37 Labs: Laboratory Results - last 24 hr 04/27/22 02:37: Sodium 144, Potassium 3.9, Chloride 107, Carbon Dioxide 30.0, Anion Gap 7, BUN 9, Creatinine 1.00, Estim Creat Clear Calc 84.71, Est GFR (MDRD) Af Amer 98, Est GFR (MDRD) Non-Af 81, BUN/Creatinine Ratio 9.0 L, Glucose 114 H, Calcium 9.5, Total Bilirubin 0.70, AST 14 L, ALT 19, Alkaline Phosphatase 101, Troponin I High Sens 80 H, Total Protein 7.8, Albumin 3.9, Globulin 3.9, Albumin/Globulin Ratio 1.0, Lipase 262 04/27/22 02:37: WBC 11.5 H, RBC 3.98 L, Hgb 12.9 L, Hct 38.8 L, MCV 97.5 H, MCH 32.4 H, MCHC 33.2, RDW Std Deviation 50.7 H, RDW Coeff of Subhash 14.1, Plt Count 249, MPV 10.0, Immature Gran % (Auto) 0.300, Neut % (Auto) 56.1, Lymph % (Auto) 35.2, Lamb % (Auto) 7.3, Eos % (Auto) 0.8, Baso % (Auto) 0.3, Absolute Neuts (auto) 6.5, Absolute Lymphs (auto) 4.05, Nucleated RBC % 0 Rhythm Strip Rhythm Strip: Sinus Rhythm Rate: 60 Ectopy: None Radiology Impression Abdomen/Pelvis CT 04/27/22 02:19 IMPRESSION: No acute intra-abdominal findings. Mild skin thickening and subcutaneous stranding lower anterior abdominal wall question cellulitis. Inguinal and pelvic adenopathy possibly reactive. Follow-up suggested. Electronically Signed: Milvia Crowley MD at 4:02 EST Reading Location ID and State: [place] / [facility] ([employer]) Tel , Service support , Chest X-Ray 04/27/22 02:20 IMPRESSION: No acute findings. Electronically Signed: Milvia Crowley MD at 3:21 EST Reading Location ID and State: [id number] / [facility] ([employer] Tel , Service support , Brain CT 04/27/22 02:46 IMPRESSION: No acute abnormality. CT angiogram and/or MRI may be helpful to evaluate for acute infarct as clinically indicated. Electronically Signed: Milvia Crowley MD at 3:57 EST Reading Location ID and State: [id number] / [facility] ([employer]) Tel , Service support , Assessment & Plan Assessment/Plan (1) Syncope: PLAN: Plan The patient is a 61 y/o M w/ PMHx: CAD s/p PCI, HTN, HLD, Hx CVA, Tobacco use, Cannabis daily use who presents to the [facility] ED on 04/27/22 with history of family reported syncopal events on evening prior to presentation with noted chest discomfort in addition to vague abdominal discomfort which has been ongoing for the last 2 to 3 days with no nausea, emesis, diarrhea and apparently appropriately tolerating oral intake but evening prior to ED presentation reportedly was not feeling well with from description muscular spasms with associated pain and supposedly unable to speak with periods of nonresponsive status with no obvious tonic/clonic seizure activity eventually slowly improving but did seem confused initially prompting eventual ED evaluation. #1. Syncopal events with questionable seizure with postictal phase, complains of diffuse extremity tightness and pain: From discussion with patient and family potential seizure activity although atypical with a postictal phase, CT head with no acute intracranial findings. Lab work-up included CBC w/ no marked WBC elevation or left shift, BMP w/ no marked acute findings. Will admit to PCU, maintain on telemetry in PCU on seizure precautions, obtain EEG, obtain brain MRI, obtain TSH, obtain mag, obtain urine tox screen, obtain total creatinine kinase is certainly rhabdomyolysis could be responsible for patient's significant extremity discomfort, PRN ativan IV for seizure activity, once imaging EEG obtained given atypical presentation would plan consultation with neurology, ECHO requested, PT/OT/case management consultation for discharge planning. #2. Abdominal pain, suspected primarily secondary to Acute cellulitis: CT abdomen pelvis did have mild skin thickening and subcutaneous stranding of the lower anterior abdominal wall with questionable cellulitis with corresponding exam with suprapubic small draining abscess with mild indurated region and tenderness to palpation, will maintain on IV vancomycin pending Wound Cx and wound MRSA PCR, plan repeat CBC in AM, continue affected extremity elevation above heart when seated and in bed, monitor erythema outline with VS checks. #3. Indeterminate cardiac enzyme with episodes of chest discomfort with questionable syncope as noted #1, partially reproducible discomfort component: EKG in ED sinus rhythm with nonspecific ST changes with no acute evidence of ischemia, CXR w/ no acute cardiopulmonary findings, initial trop 80. Will place on a monitored bed to assure no acute myocardial infarction with serial cardiac enzymes and EKGs. Echocardiogram requested. FLP in AM. Magnesium level requested. Given other significant issues ongoing will defer immediate stress testing. ASA, NG, morphine. #4. Right axilla small abscess with hidradenitis: Patient with concurrent as noted #2, wound culture and wound MRSA obtained, no marked periwound erythema, still able to express purulent material, will maintain on IV vancomycin as noted, encourage routine hygiene and skin care, dressing changes initiated. #5. Chronic anemia, mildly macrocytic: Admission hemoglobin 12.9, prior baselin e noted 12-13, stable, continue to trend, continue supplements. #6. CAD: Status post prior PCI x3, will continue aspirin, Plavix, statin, Coreg, not on KRISTEL inhibitor/ARB. #7. Hypertension: Continue home regimen including Coreg, PRN hydralazine. #8. Hyperlipidemia: Continue home statin regimen. #9. History CVA: Patient and family with reported chronic diffuse debilities although he is able to move all of his extremities but reports generalized weakness following a stroke and uses a walker chronically. We will continue aspirin, Plavix, statin, hypertensive regimen as noted. #10. Tobacco Abuse: Encouraged continued cessation as he reports being tobacco free x2 weeks. #11. Chronic cannabis usage: Patient with usage of chronic cannabis daily, UDS pending. #12. Obesity: Weight loss and lifestyle changes encouraged. #13. DVT prophylaxis: SCDs, Lovenox. #14. CODE status: Patient does not have healthcare power of mergers and acquisitions attorney nor living will in place but he notes that his son who is present would be his decision- maker if he could not make decisions for himself. Full Code status. Admission Evaluation Time spent evaluating chart, patient history, patient evaluation, care planning and discussion with specialists: 75 minutes. Charges/Coding Visit Charges Inpatient E&M: 99907 Init Hosp L3
--- NOTE | 2022-04-27 05:35 | ECHOD_ITS ---
Reason For Study: Syncope/Near Syncope Procedure This was a 2D Doppler, Color Flow transthoracic echocardiogram. Technically difficult study, patient scanned supine and in left lateral positions to obtain best possible images. Exam performed portable in patient room. Left Ventricle Normal LV size. Left ventricular systolic function is normal. The estimated ejection fraction is 55 %. No regional wall motion abnormalities noted. Right Ventricle Normal RV size. Normal systolic function. Atria Normal left atrium. Normal right atrium. Mitral Valve Normal mitral valve. Tricuspid Valve Normal tricuspid valve. Aortic Valve Trisinus/trileaflet aortic valve. Mild diffuse aortic valve thickening. Mild (1+) aortic valve insufficiency. Pulmonic Valve Normal pulmonic valve. Great Vessels Normal aortic root. The pulmonary artery is normal size. Pericardium/Pleural No pericardial effusion. MMode/2D Measurements & Calculations LVIDd: 6.8 cm IVSd: 1.4 cm Ao root diam: 3.6 cm LVIDs: 5.6 cm LVPWd: 1.1 cm LA dimension: 3.5 cm RVDd: 3.7 cm FS: 17.8 % LAV(MOD-bp): 55.9 ml LA A4 area: 20.3 cm2 RA A4 area: 16.2 cm2 LAV(MOD-bp) Indexed: 25.3 ml/m2 LAV(MOD-sp2): 45.2 ml LAV(MOD-sp4): 55.0 ml Time Measurements MV dec time: 0.30 sec Doppler Measurements & Calculations MV E max fausto: 69.6 cm/sec Lat Peak E' Fausto: 11.6 cm/sec MV V2 max: 83.7 cm/sec MV A max fausto: 61.4 cm/sec E/E' lat: 6.0 MV max P.8 mmHg MV E/A: 1.1 MV V2 mean: 45.9 cm/sec MV mean P.98 mmHg MV V2 VTI: 28.0 cm MV P1/2t max fausto: 84.2 cm/sec Ao V2 max: 140.9 cm/sec AI max fausto: 364.7 cm/sec MV P1/2t: 51.8 msec Ao max P.9 mmHg AI max P.3 mmHg MV dec slope: 475.5 cm/sec2 Ao V2 mean: 99.2 cm/sec AI dec slope: 118.6 cm/sec2 MVA(P1/2t): 4.2 cm2 Ao mean P.4 mmHg AI P1/2t: 900.6 msec Ao V2 VTI: 33.0 cm AV (velocity ratio): 0.85 LV V1 max: 104.7 cm/sec MR max fausto: 5.2 cm/sec PA V2 max: 73.1 cm/sec LV V1 max P.4 mmHg MR max P.01 mmHg LV V1 mean P.4 mmHg LV V1 mean: 72.1 cm/sec LV V1 VTI: 28.1 cm ECHO/Echo Complete Interpretation Summary Normal LV size. Left ventricular systolic function is normal. The estimated ejection fraction is 55 %. Mild (1+) aortic valve insufficiency. Ordering Physician: Carolyn Lind Referring Physician: Jose Stubbs Performed By: James Sharma RCS
[2022-04-27 05:49] LABS: Troponin-I HS 65 pg/mL (3.0-78.0)
[2022-04-27 05:50] LABS: Amphetamine Urine VISTA NEGATIVE (<1000 ng/mL); Barbiturate Urine VISTA NEGATIVE (< 200 ng/mL); Benzodiazepine Urine VISTA NEGATIVE (< 200 ng/mL); Cocaine Urine VISTA NEGATIVE (< 300 ng/mL); Ecstacy Urine VISTA NEGATIVE (< 500 ng/mL); Methadone Urine VISTA NEGATIVE (< 300 ng/mL); PCP Urine VISTA NEGATIVE (< 25 ng/mL); THC Urine VISTA POSITIVE (< 50 ng/mL); Vista UDS pH Range 5
--- NOTE | 2022-04-27 05:53 | PCM.RX.CS ---
Consult Pharmacy has been consulted to manage selected antiobiotic: Vancomycin Type of Consult: New start Suspected Infection: Skin/Soft tissue Prior Doses of Antibiotics Received/Current Regimen: Medications Vancomycin HCl 1,750 mg/ (Sodium Chloride) 535 mls @ 250 mls/hr IV Q12H NAA Vancomycin HCl 1,500 mg/ (Sodium Chloride) 530 mls @ 250 mls/hr IV X1 ONE Stop: 04/27/22 06:20 Last Admin: 04/27/22 04:48 Dose: 250 mls/hr Labs: Sodium 144 mmol/L (136-145) 04/27/22 02:37 Potassium 3.9 mmol/L (3.5-5.1) 04/27/22 02:37 Chloride 107 mmol/L (98-107) 04/27/22 02:37 Carbon Dioxide 30.0 mmol/L (21.0-32.0) 04/27/22 02:37 Anion Gap 7 (5-15) 04/27/22 02:37 BUN 9 mg/dL (7-18) 04/27/22 02:37 Creatinine 1.00 mg/dL (0.70-1.30) 04/27/22 02:37 Est GFR (MDRD) Af Amer 98 mL/min (>60) 04/27/22 02:37 Est GFR (MDRD) Non-Af 81 mL/min (>60) 04/27/22 02:37 BUN/Creatinine Ratio 9.0 RATIO (10-20) L 04/27/22 02:37 Glucose 114 mg/dL (74-106) H 04/27/22 02:37 Weight used for dosin.4 kg Estimated Creatinine Clearance: 85 Goal Trough: 15-20 mcg/mL Pharmacy Plan for Drug Dosing: Pharmacy Service will continue to monitor and adjust dosing as required. Follow-Up Labs: Trough Vancomycin Labs to be done on [date and time ordered]: 04/28/22 @2668
--- NOTE | 2022-04-27 05:55 | MRI_ITS ---
EXAM: MR HEAD WITHOUT INTRAVENOUS CONTRAST CLINICAL INDICATION: Seizure TECHNIQUE: Multiplanar and multisequence MR images of the brain were obtained without intravenous contrast. This report was created using [employer] report generation technology. COMPARISON: CT head without contrast 04/27/2022. FINDINGS: BRAIN AND EXTRA-AXIAL SPACES: Unremarkable. No intra- or extra-axial hemorrhage. No evidence of acute infarct. No intracranial mass or mass effect. There is preservation of the mcarthur/white matter interface. Posterior fossa structures are unremarkable. Ventricles are appropriate for age. No hydrocephalus. Basal cisterns are patent. SELLA: Unremarkable. Normal sella turcica, pituitary gland, infundibular stalk, optic chiasm and hypothalamus. AUDITORY SYSTEM: Unremarkable. The internal auditory canals are patent. BONES/JOINTS: Unremarkable. No discrete lytic or blastic abnormalities. SINUSES: Unremarkable as visualized. Clear. MASTOID AIR CELLS: Unremarkable as visualized. Clear. ORBITS: Unremarkable as visualized. Both globes, extraocular muscles, optic nerves and retrobulbar fat appear unremarkable. VASCULATURE: Unremarkable as visualized. Normal flow voids in the major intracranial circulation. MRI/Brain without Contrast IMPRESSION: Normal MRI brain without intravenous contrast and unchanged when compared to CT head scan of 04/27/2022. Electronically Signed: Sadi Hitchcock MD at 10:16 EST ,
[2022-04-27] MEDS: 0.9% Normal Saline 1,000 ML 100 ML IV ×2 (06:19→20:50)
[2022-04-27 07:34] LABS: M R Staph aureus DNA By PCR Negative (Negative); Probe Check PASS; Specimen Processing Control PASS; Staph aureus DNA By PCR NEGATIVE (Negative)
--- NOTE | 2022-04-27 07:57 | TELEMED_ITS ---
[facility] has confirmed receipt of a request for visit. This document confirms receipt of the order initiating the consult. To find the results of the consultation, please view the patient's reports for the scanned Telemed Consult.
--- NOTE | 2022-04-27 08:25 | PN.HOSP_ITS ---
Reason for Visit Reason for Visit: Diagnoses Syncope and collapse (04/27/22) Subjective Subjective Does not feel he had a seizure. Though does endorse that he feels sore all over. Denies that he had any bladder incontinence. Objective Data Objective Data Vital Signs: Vital Signs Temp Pulse Resp BP Pulse Ox O2 Del Method 37.1 C 56 L 18 109/47 L 100 Room Air 04/27/22 06:15 04/27/22 06:15 04/27/22 06:15 04/27/22 06:15 04/27/22 06:15 04/27/22 06:15 Oxygen Delivery Method Room Air Weight: 101.9 kg Body Mass Index (BMI) 31.3 Intake & Output: Intake and Output for Last 24 Hours 04/25/22 04/26/22 04/27/22 23:59 23:59 23:59 Output Total 0 / 0 Balance 0 / 0 Lab / Micro Data Result Diagrams: 04/27/22 09:02 04/27/22 09:02 Labs: Laboratory Results - last 24 hr 04/27/22 02:37: Sodium 144, Potassium 3.9, Chloride 107, Carbon Dioxide 30.0, Anion Gap 7, BUN 9, Creatinine 1.00, Estim Creat Clear Calc 84.71, Est GFR (MDRD) Af Amer 98, Est GFR (MDRD) Non-Af 81, BUN/Creatinine Ratio 9.0 L, Glucose 114 H, Calcium 9.5, Total Bilirubin 0.70, AST 14 L, ALT 19, Alkaline Phosphatase 101, Troponin I High Sens 80 H, Total Protein 7.8, Albumin 3.9, Globulin 3.9, Albumin/Globulin Ratio 1.0, Lipase 262 04/27/22 02:37: WBC 11.5 H, RBC 3.98 L, Hgb 12.9 L, Hct 38.8 L, MCV 97.5 H, MCH 32.4 H, MCHC 33.2, RDW Std Deviation 50.7 H, RDW Coeff of Subhash 14.1, Plt Count 249, MPV 10.0, Immature Gran % (Auto) 0.300, Neut % (Auto) 56.1, Lymph % (Auto) 35.2, Donley % (Auto) 7.3, Eos % (Auto) 0.8, Baso % (Auto) 0.3, Absolute Neuts (auto) 6.5, Absolute Lymphs (auto) 4.05, Nucleated RBC % 0 04/27/22 02:37: Magnesium 2.1, Total Creatine Kinase 131 04/27/22 04:48: Troponin I High Sens 65 04/27/22 05:00: S.aureus Protein A PCR NEGATIVE, MRSA (PCR) Negative 04/27/22 05:11: Urine Opiates Screen POSITIVE H, Urine Methadone Screen NEGATIVE, Ur Barbiturates Screen NEGATIVE, Ur Phencyclidine Scrn NEGATIVE, Ur Amphetamines Screen NEGATIVE, MDMA (Ecstasy) Screen NEGATIVE, U Benzodiazepines Scrn NEGATIVE, Urine Cocaine Screen NEGATIVE, U Cannabinoids Screen POSITIVE H, Ur Drug Screen Comment Radiography Diagnostic Testing: Radiology Impression Abdomen/Pelvis CT 04/27/22 02:19 IMPRESSION: No acute intra-abdominal findings. Mild skin thickening and subcutaneous stranding lower anterior abdominal wall question cellulitis. Inguinal and pelvic adenopathy possibly reactive. Follow-up suggested. Electronically Signed: Milvia Crowley MD at 4:02 EST Reading Location ID and State: [place] / [place] Tel , Service support , Chest X-Ray 04/27/22 02:20 IMPRESSION: No acute findings. Electronically Signed: Milvia Crowley MD at 3:21 EST Reading Location ID and State: [place] Tel , Service support , Brain CT 04/27/22 02:46 IMPRESSION: No acute abnormality. CT angiogram and/or MRI may be helpful to evaluate for acute infarct as clinically indicated. Electronically Signed: Milvia Crowley MD at 3:57 EST Reading Location ID and State: [place] / [place] Tel , Service support , Rhythm Strip Rhythm Strip: Sinus Rhythm Rate: 60 Ectopy: None Physical Exam Const alert and no apparent distress HEENT head/scalp atraumatic HEENT Narrative: No tongue lacerations or tongue bites I could see. Eyes PERRL and EOMs intact bilaterally Resp normal respiratory effort, no retractions, no use of accessory muscles and clear to auscultation bilaterally Cardio regular rate, regular rhythm, S1 normal heart sound and S2 normal heart sound GI normal to inspection, nondistended, normoactive bowel sounds and soft to palpation Extremity normal to inspection Neuro oriented x3 and moves all extremities Assessment & Plan Assessment/Plan (1) Syncope: PLAN: Concerning for this being a seizure. * Syncopal events with questionable seizure with postictal phase, complains of diffuse extremity tightness and pain: From discussion with patient and family potential seizure activity although atypical with a postictal phase, CT head with no acute intracranial findings. seizure precautions, PRN ativan IV for seizure activity, once imaging EEG obtained given atypical pre sentation would plan consultation with neurology, ECHO requested, PT/OT/case management consultation for discharge planning. MRI of the brain negative EEG suggesting primary generalized epilepsy and moderate to severe diffuse encephalopathy. No seizure patterns or lateralizing signs. CPK unremarkable at 131. Consult neurology for further recommendations. (2) Chest pain: PLAN: Indeterminate cardiac enzyme with episodes of chest discomfort with questionable syncope as noted #1, partially reproducible discomfort component: EKG in ED sinus rhythm with nonspecific ST changes with no acute evidence of ischemia, CXR w/ no acute cardiopulmonary findings, initial trop 80. Will place on a monitored bed to assure no acute myocardial infarction with serial cardiac enzymes and EKGs. Echocardiogram requested. FLP in AM. Magnesium level requested. Given other significant issues ongoing will defer immediate stress testing. ASA, NG, morphine. (3) Abdominal wall cellulitis: PLAN: Clinically is not suggestive of cellulitis but the CAT scan noted mild skin thickening and subcutaneous stranding of the lower anterior abdominal wall with question of cellulitis. (4) Hydradenitis: PLAN: Right axilla small abscess with hidradenitis: Patient with concurrent as noted #2, wound culture and wound MRSA obtained, no marked periwound erythema, still able to express purulent material, will maintain on IV vancomycin as noted, encourage routine hygiene and skin care, dressing changes initiated. PLAN: Plan Chronic conditions: * Chronic anemia, mildly macrocytic: Admission hemoglobin 12.9, prior baseline noted 12-13, stable, continue to trend, continue supplements. * CAD: Status post prior PCI x3, will continue aspirin, Plavix, statin, Coreg, not on KRISTEL inhibitor/ARB. * Hypertension: Continue home regimen including Coreg, PRN hydralazine. * Hyperlipidemia: Continue home statin regimen. * History CVA: Patient and family with reported chronic diffuse debilities although he is able to move all of his extremities but reports generalized weakness following a stroke and uses a walker chronically. We will continue aspirin, Plavix, statin, hypertensive regimen as noted. * Tobacco Abuse: Encouraged continued cessation as he reports being tobacco free x2 weeks. * Chronic cannabis usage: Patient with usage of chronic cannabis daily, UDS pending. * Obesity: Weight loss and lifestyle changes encouraged. DVT prophylaxis: SCDs, Lovenox. Charges/Coding Visit Charges Inpatient E&M: 75267 Subs Hosp L3
[2022-04-27 09:15] LABS: Absolute Lymphocyte Count 4.44 X10^3/uL (0.83-4.51); Absolute Neutrophil Count 4.5 X10^3/uL (2.0-7.7); Basophil# 0.03 X10^3/uL; Basophil% 0.3 % (0-1); Eosinophil# 0.06 X10^3/uL; Eosinophils% 0.6 % (0-5); Hematocrit 37.8 % (40-54); Hemoglobin 12.8 g/dL (13.0-16.5); Lymphocyte # 4.44 X10^3/ul (0.83-4.51); Lymphocyte % 45.5 % (19-41); Mean Corp Hgb Conc 33.9 g/dL (32-36); Mean Corpuscular Hgb 32.3 pg (27.0-32.0); Mean Corpuscular Volume 95.5 fL (80-94); Mean Platelet Vol. 9.9 fl (6.2-12.0); Monocyte# 0.76 X10^3/uL; Monocyte% 7.8 % (0-10); NRBC Flagged by Analyzer 0 % (0-5); Neutrophil # 4.45 X10^3/uL (2.7-7.7); Neutrophil % 45.7 % (47-70); Platelet Count 217 K/mm3 (150-450); RBC Distribution Width SD 49.5 fl (35.1-43.9); Red Blood Count 3.96 M/mm3 (4.6-6.2); White Blood Count 9.8 K/mm3 (4.4-11.0)
[2022-04-27 09:34] LABS: Troponin-I HS 73 pg/mL (3.0-78.0)
[2022-04-27 09:50] LABS: ALB/GLOB Ratio 0.9 RATIO (0.9-2.4); AST(SGOT) 85 U/L (15-37); Alanine Aminotransfer ALT/SGPT 74 U/L (16-61); Albumin, Serum 3.4 g/dL (3.2-5.0); Alkaline Phosphatase 107 U/L (45-117); Anion Gap 7 (5-15); BUN 8 mg/dL (7-18); BUN/Creat Ratio 10.2 RATIO (10-20); Calcium,Total 8.9 mg/dL (8.5-10.1); Chloride 111 mmol/L (98-107); Creatinine, Serum 0.78 mg/dL (0.70-1.30); EST Glomerular Filtration Rate 108 mL/min (>60); Est Glom Filt Rate - Afr Amer 131 mL/min (>60); Estimated Creatinine Clearance 108.61 ml/min; Globulin 3.6 g/dL (2.2-4.2); Glucose 90 mg/dL (74-106); Potassium 3.7 mmol/L (3.5-5.1); Sodium Level 145 mmol/L (136-145); T4 Free Direct 1.47 ng/dL (0.76-1.46); Thyroid Stim Hormone (TSH) 0.71 uIU/mL (0.358-3.74)
[2022-04-27] MEDS: Carvedilol 6.25 MG Tablet PO ×2 (09:54→17:14)
[2022-04-27] MEDS: Aspirin 81 MG TAB.CHEW PO (09:54)
[2022-04-27] MEDS: Clopidogrel Bisulfate 75 MG Tablet PO (09:54)
[2022-04-27] MEDS: Potassium Chloride Oral Tablet 20 MEQ PO (09:54)
[2022-04-27] MEDS: Enoxaparin 40 MG/0.4 ML Syringe SC (09:54)
[2022-04-27] MEDS: Acetaminophen 325 MG Tablet 650 MG PO (13:08)
[2022-04-27] MEDS: levETIRAcetam IV 1,000 MG/100 ML BAG 400 MG IV (16:06)
--- NOTE | 2022-04-27 20:45 | CPS ---
Pt is asleep at this time. Unable to do IS or PEP.
[2022-04-27] MEDS: Atorvastatin Calcium 40 MG Tablet PO (21:48)
[2022-04-27] MEDS: 0.9% Saline Lock 10 ML Syringe IV (21:48)
[2022-04-27] MEDS: levETIRAcetam 500 MG Tablet PO (21:48)
[2022-04-28 03:15] VITALS: BP 142/71; PULSE 58; RESP 18; TEMP 36.9; O2SAT 98
[2022-04-28] MEDS: 0.9% Normal Saline 1,000 ML 100 ML IV (05:40)
[2022-04-28 06:00] VITALS: BMI 31.4
[2022-04-28 07:15] LABS: Cholesterol 85 mg/dL (200); High Density Lipoprotein 39 mg/dL; Triglycerides 52 mg/dL; Very Low Density Lipoprotein 10 mg/dL (5-40)
[2022-04-28] MEDS: Potassium Chloride Oral Tablet 20 MEQ PO (08:05)
[2022-04-28] MEDS: Aspirin 81 MG TAB.CHEW PO (08:05)
[2022-04-28] MEDS: Clopidogrel Bisulfate 75 MG Tablet PO (08:05)
[2022-04-28] MEDS: Carvedilol 6.25 MG Tablet PO ×2 (08:05→21:17)
[2022-04-28] MEDS: Pyridoxine HCl 100 MG Tablet PO (08:05)
[2022-04-28] MEDS: Enoxaparin 40 MG/0.4 ML Syringe SC (08:05)
[2022-04-28] MEDS: Folic Acid 1 MG Tablet PO (08:05)
[2022-04-28] MEDS: levETIRAcetam 500 MG Tablet PO ×2 (08:05→21:17)
[2022-04-28] MEDS: Nystatin Powder 15gm Bottle 1 APPLIC TOPICAL (08:13)
--- NOTE | 2022-04-28 08:20 | PCM.PN.HOSP ---
Reason for Visit Reason for Visit: Diagnoses Cellulitis of abdominal wall (04/27/22) Hidradenitis suppurativa (04/27/22) Chest pain, unspecified (04/27/22) Syncope and collapse (04/27/22) Subjective Subjective Having had a seizure before. Objective Data Objective Data Vital Signs: Vital Signs Temp Pulse Resp BP Pulse Ox O2 Del Method 36.9 C 58 L 18 142/71 H 98 Room Air 04/28/22 03:15 04/28/22 03:15 04/28/22 03:15 04/28/22 03:15 04/28/22 03:15 04/28/22 03:19 Oxygen Delivery Method Room Air Weight: 102.4 kg Body Mass Index (BMI) 31.4 Intake & Output: Intake and Output for Last 24 Hours 04/26/22 04/27/22 04/28/22 23:59 23:59 23:59 Intake Total 2600.00 / 2600.00 925.00 / 925.00 Output Total 550 / 550 400 / 400 Balance 2050.00 / 2050.00 525.00 / 525.00 Lab / Micro Data Result Diagrams: 04/27/22 09:02 04/27/22 09:02 Labs: Laboratory Results - last 24 hr 04/27/22 09:02: WBC 9.8, RBC 3.96 L, Hgb 12.8 L, Hct 37.8 L, MCV 95.5 H, MCH 32.3 H, MCHC 33.9, RDW Std Deviation 49.5 H, RDW Coeff of Subhash 14.0, Plt Count 217, MPV 9.9, Immature Gran % (Auto) 0.100, Neut % (Auto) 45.7 L, Lymph % (Auto) 45.5 H, Mcdowell % (Auto) 7.8, Eos % (Auto) 0.6, Baso % (Auto) 0.3, Absolute Neuts (auto) 4.5, Absolute Lymphs (auto) 4.44, Nucleated RBC % 0 04/27/22 09:02: Sodium 145, Potassium 3.7, Chloride 111 H, Carbon Dioxide 27.0, Anion Gap 7, BUN 8, Creatinine 0.78, Estim Creat Clear Calc 108.61, Est GFR (MDRD) Af Amer 131, Est GFR (MDRD) Non-Af 108, BUN/Creatinine Ratio 10.2, Glucose 90, Calcium 8.9, Total Bilirubin 0.80, AST 85 H, ALT 74 H, Alkaline Phosphatase 107, Total Protein 7.0, Albumin 3.4, Globulin 3.6, Albumin/Globulin Ratio 0.9, TSH 0.71, Free T4 1.47 H 04/27/22 09:02: Troponin I High Sens 73 04/28/22 05:59: Triglycerides 52, Cholesterol 85, LDL Cholesterol 36, VLDL Cholesterol 10, HDL Cholesterol 39 L Micro: Microbiology 04/27/22 05:00 Wound Abcess - Axilla, Right Gram Stain - Final Radiography Diagnostic Testing: Radiology Impression Echocardiogram 04/27/22 05:35 Interpretation Summary Normal LV size. Left ventricular systolic function is normal. The estimated ejection fraction is 55 %. Mild (1+) aortic valve insufficiency. Ordering Physician: Carolyn Lind Referring Physician: Jose Stubbs Performed By: James Sharma RCS Brain MRI 04/27/22 05:55 IMPRESSION: Normal MRI brain without intravenous contrast and unchanged when compared to CT head scan of 04/27/2022. Electronically Signed: Sadi Hitchcock MD at 10:16 EST , Rhythm Strip Rhythm Strip: Sinus Rhythm Rate: 60 Ectopy: None Physical Exam Const alert and no apparent distress Constitutional Narrative: Flat affect. Extremity Extremity Narrative: No significant erythema under his right axilla. Unroofed lesion on his upper arm. Assessment & Plan Assessment/Plan (1) Seizure: PLAN: Most likely etiology. EEG was concerning for seizure. Patient was evaluated by [facility] teleneurology who felt that this was seizure as well. Patient received 1 g of levetiracetam and then to continue with 500 twice daily thereafter. Discussed with the patient: No driving, no operating heavy machinery, no baths, no swimming by himself for the next 6 months as long as he is seizure-free. He states that he does not drive anyway. Outpatient neurology follow-up (2) Chest pain: PLAN: Indeterminate cardiac enzyme with episodes of chest discomfort partially reproducible discomfort component: EKG in ED sinus rhythm with nonspecific ST changes with no acute evidence of ischemia, CXR w/ no acute cardiopulmonary findings, initial trop 80. Will place on a monitored bed to assure no acute myocardial infarction with serial cardiac enzymes and EKGs. Echo shows an EF of 55% Patient has known coronary artery disease with history of stents. Patient had a stress test sometime last year. Troponins were slightly elevated. Cannot rule out underlying concerning disease. I did recommend that the patient stay to get a stress test. He declined system going home. He understands that he cannot be ruled out for having pending heart attack. I told him there to be much easier for me to do in the hospital otherwise it may be several weeks if not longer before he can get that done as outpatient. (3) Abdominal wall cellulitis: PLAN: Clinically is not suggestive of cellulitis but the CAT scan noted mild skin thickening and subcutaneous stranding of the lower anterior abdominal wall with question of cellulitis. Clinically I do not feel that he has cellulitis. We will continue with antibiotics for the possible hidradenitis. (4) Hydradenitis: PLAN: Right axilla small abscess with hidradenitis: Patient with concurrent as noted #2, wound culture and wound MRSA obtained, no marked periwound erythema, still able to express purulent material, will maintain on IV vancomycin as noted, encourage routine hygiene and skin care, dressing changes initiated. Culture performed and results pending On vancomycin PLAN: Plan Chronic conditions: Chronic anemia, mildly macrocytic: Admission hemoglobin 12.9, prior baseline noted 12-13, stable, continue to trend, continue supplements. CAD: Status post prior PCI x3, will continue aspirin, Plavix, statin, Coreg, not on KRISTEL inhibitor/ARB. Hypertension: Continue home regimen including Coreg, PRN hydralazine. Hyperlipidemia: Continue home statin regimen. History CVA: Patient and family with reported chronic diffuse debilities although he is able to move all of his extremities but reports generalized weakness following a stroke and uses a walker chronically. We will continue aspirin, Plavix, statin, hypertensive regimen as noted. Tobacco Abuse: Encouraged continued cessation as he reports being tobacco free x2 weeks. Chronic cannabis usage: Patient with usage of chronic cannabis daily, UDS pending. Obesity: Weight loss and lifestyle changes encouraged. DVT prophylaxis: SCDs, Lovenox. Discharge home
[2022-04-28 09:15] VITALS: BP 145/73; PULSE 62; RESP 18; TEMP 37.1; O2SAT 97
--- NOTE | 2022-04-28 11:43 | DCINST_ITS ---
Discharge Instructions Diet Discharge Diet: Low fat / Low cholesterol Activity Discharge Activity: Return to Normal Activity (No operating heavy machinery, no baths or swimming by herself for the next 6 months as long as you are seizure- free) and May Not Drive (For 6 months as long as you are seizure-free) Dressing / Incision Call your doctor if you observe: Chest pain and - (Seizure) Follow Up Care Test Results: Test results from this visit will be discussed in further detail at your follow- up appointment, if applicable. Discharge Plan Admission Admit Date/Time: 04/27/22 08:25 Primary Reason for Your Visit: Seizure Attending Provider: Ramesh Wood Primary Care Provider: Jose Stubbs Consulting Providers: Carolyn Lind Discharge Orders/Prescriptions Prescriptions: New levetiracetam 500 mg Tablet 500 mg PO BID Qty: 60 0RF aspirin 81 mg Tablet,Chewable 81 mg PO BREAKFAST Qty: 0 0RF sulfamethoxazole-trimethoprim [Bactrim DS] 800-160 mg tablet 1 tab PO BID Qty: 10 0RF Continued cholecalciferol (vitamin D3) 125 mcg (5,000 unit) capsule 10,000 unit DAILY Label Comments: take 2 capsules by mouth once daily folic acid 1 mg tablet 1 mg PO DAILY Qty: 30 0RF pyridoxine (vitamin B6) 100 mg tablet 100 mg PO DAILY Qty: 30 0RF nystatin [Nyamyc] 100,000 unit/gram powder 100,000 unit TOPICAL DAILY atorvastatin 40 mg tablet 40 mg PO DAILY Qty: 30 0RF carvedilol 6.25 mg tablet 6.25 mg PO BID Qty: 60 0RF Rx Instructions: must administer with a meal/food clopidogrel 75 mg tablet 75 mg PO DAILY Qty: 30 0RF potassium chloride 20 mEq tablet,ER particles/crystals 20 meq PO DAILY Qty: 30 0RF Label Comments: take 1 tablet by mouth once daily nitroglycerin 0.4 mg tablet, sublingual 0.4 mg sublingual PRN PRN (Reason: CP) Qty: 10 0RF Referrals / Follow Up: [facility] [Provider Group] - Within 1 Month [facility] [Provider Group] - Within 1 Month Jose Stubbs DO [Primary Care Provider] - Within 2 Weeks Disposition Disposition (needs filled in before D/C Order can be placed): Home, Self Care
--- NOTE | 2022-04-28 11:49 | DS.PCM_ITS ---
Providers Date of Admission: 04/27/22 Primary Care Physician: Dr. Jose Stubbs, DO Reason For Visit: SYNCOPE,CHEST PAIN Diagnosis Discharge Diagnosis (1) Seizure: Status: Acute Code(s): R56.9 - Unspecified convulsions Plan: Most likely etiology. EEG was concerning for seizure. Patient was evaluated by [facility] teleneurology who felt that this was seizure as well. Patient received 1 g of levetiracetam and then to continue with 500 twice daily thereafter. Discussed with the patient: No driving, no operating heavy machinery, no baths, no swimming by himself for the next 6 months as long as he is seizure-free. He states that he does not drive anyway. Outpatient neurology follow-up (2) Chest pain: Status: Acute Code(s): R07.9 - Chest pain, unspecified Plan: Indeterminate cardiac enzyme with episodes of chest discomfort partially reproducible discomfort component: EKG in ED sinus rhythm with nonspecific ST changes with no acute evidence of ischemia, CXR w/ no acute cardiopulmonary findings, initial trop 80. Will place on a monitored bed to assure no acute myocardial infarction with serial cardiac enzymes and EKGs. Echo shows an EF of 55% Patient has known coronary artery disease with history of stents. Patient had a stress test sometime last year. Troponins were slightly elevated. Cannot rule out underlying concerning disease. I did recommend that the patient stay to get a stress test. He declined system going home. He understands that he cannot be ruled out for having pending heart attack. I told him there to be much easier for me to do in the hospital otherwise it may be several weeks if not longer before he can get that done as outpatient. (3) Abdominal wall cellulitis: Status: Acute Code(s): L03.311 - Cellulitis of abdominal wall Plan: Clinically is not suggestive of cellulitis but the CAT scan noted mild skin thickening and subcutaneous stranding of the lower anterior abdominal wall with question of cellulitis. Clinically I do not feel that he has cellulitis. We will continue with antibiotics for the possible hidradenitis. (4) Hydradenitis: Status: Acute Code(s): L73.2 - Hidradenitis suppurativa Plan: Right axilla small abscess with hidradenitis: Patient with concurrent as noted #2, wound culture and wound MRSA obtained, no marked periwound erythema, still able to express purulent material, will maintain on IV vancomycin as noted, encourage routine hygiene and skin care, dressing changes initiated. Culture performed and results pending Discharge with Bactrim. Plan Chronic conditions: * Chronic anemia, mildly macrocytic: Admission hemoglobin 12.9, prior baseline noted 12-13, stable, continue to trend, continue supplements. * CAD: Status post prior PCI x3, will continue aspirin, Plavix, statin, Coreg, not on KRISTEL inhibitor/ARB. * Hypertension: Continue home regimen including Coreg, PRN hydralazine. * Hyperlipidemia: Continue home statin regimen. * History CVA: Patient and family with reported chronic diffuse debilities although he is able to move all of his extremities but reports generalized weakness following a stroke and uses a walker chronically. We will continue aspirin, Plavix, statin, hypertensive regimen as noted. * Tobacco Abuse: Encouraged continued cessation as he reports being tobacco free x2 weeks. * Chronic cannabis usage: Patient with usage of chronic cannabis daily, UDS pending. * Obesity: Weight loss and lifestyle changes encouraged. Discharge home Medications at Discharge Home Medications cholecalciferol (vitamin D3) 125 mcg (5,000 unit) capsule 10,000 unit DAILY 04/12/22 folic acid 1 mg tablet 1 mg PO DAILY #30 tabs 04/12/22 pyridoxine (vitamin B6) 100 mg tablet 100 mg PO DAILY #30 tabs 04/12/22 nystatin 100,000 unit/gram topical powder (Nyamyc) 100,000 unit topical DAILY 04/27/22 aspirin 81 mg chewable tablet 81 mg PO BREAKFAST #0 tabs 04/28/22 atorvastatin 40 mg tablet 40 mg PO DAILY #30 tabs 04/28/22 carvedilol 6.25 mg tablet 6.25 mg PO BID #60 tabs 04/28/22 clopidogrel 75 mg tablet 75 mg PO DAILY #30 tabs 04/28/22 levetiracetam 500 mg tablet 500 mg PO BID #60 tabs 04/28/22 nitroglycerin 0.4 mg sublingual tablet 0.4 mg sublingual PRN PRN CP #10 tabs 04/28/22 potassium chloride 20 mEq tablet,extended release(part/cryst) 20 meq PO DAILY #30 tabs 04/28/22 sulfamethoxazole 800 mg-trimethoprim 160 mg tablet (Bactrim DS) 1 tab PO BID #10 tabs 04/28/22 Hospital Course Operations None Procedures Electroencephalogram Summary of Care Provided Minutes Spent on Discharge: 35 Weight / BMI Weight Weight: 102.4 kg Body Mass Index (BMI) 31.4 ABG / Lab / Microbiology Data Result Diagrams: 04/27/22 09:02 04/27/22 09:02 Laboratory: Laboratory Results - last 24 hr 04/28/22 05:59: Triglycerides 52, Cholesterol 85, LDL Cholesterol 36, VLDL Cholesterol 10, HDL Cholesterol 39 L Microbiology: Microbiology 04/27/22 05:00 Wound Abcess - Axilla, Right Gram Stain - Final 04/27/22 05:00 Wound Abcess - Axilla, Right Wound Culture - Preliminary Radiography Diagnostic Testing: Radiology Impression Echocardiogram 04/27/22 05:35 Interpretation Summary Normal LV size. Left ventricular systolic function is normal. The estimated ejection fraction is 55 %. Mild (1+) aortic valve insufficiency. Ordering Physician: Carolyn Lind Referring Physician: Jose Stubbs Performed By: James Sharma RCS D/C Instructions Discharge Diet: Low fat / Low cholesterol Call your doctor if you observe: Chest pain and - (Seizure) Meaningful Use Info Meaningful Use Diagnoses (Choose all that apply): None applicable Discharge Plan Admission Admit Date/Time: 04/27/22 08:25 Primary Reason for Your Visit: Seizure Attending Provider: Ramesh Wood Primary Care Provider: Jose Stubbs Consulting Providers: Carolyn Lind Discharge Orders/Prescriptions Prescriptions: New levetiracetam 500 mg Tablet 500 mg PO BID Qty: 60 0RF aspirin 81 mg Tablet,Chewable 81 mg PO BREAKFAST Qty: 0 0RF sulfamethoxazole-trimethoprim [Bactrim DS] 800-160 mg tablet 1 tab PO BID Qty: 10 0RF Continued cholecalciferol (vitamin D3) 125 mcg (5,000 unit) capsule 10,000 unit DAILY Label Comments: take 2 capsules by mouth once daily folic acid 1 mg tablet 1 mg PO DAILY Qty: 30 0RF pyridoxine (vitamin B6) 100 mg tablet 100 mg PO DAILY Qty: 30 0RF nystatin [Nyamyc] 100,000 unit/gram powder 100,000 unit TOPICAL DAILY atorvastatin 40 mg tablet 40 mg PO DAILY Qty: 30 0RF carvedilol 6.25 mg tablet 6.25 mg PO BID Qty: 60 0RF Rx Instructions: must administer with a meal/food clopidogrel 75 mg tablet 75 mg PO DAILY Qty: 30 0RF potassium chloride 20 mEq tablet,ER particles/crystals 20 meq PO DAILY Qty: 30 0RF Label Comments: take 1 tablet by mouth once daily nitroglycerin 0.4 mg tablet, sublingual 0.4 mg sublingual PRN PRN (Reason: CP) Qty: 10 0RF Referrals / Follow Up: [facility] [Provider Group] - Within 1 Month [facility] [Provider Group] - Within 1 Month Jose Stubbs DO [Primary Care Provider] - Within 2 Weeks Disposition Disposition (needs filled in before D/C Order can be placed): Home, Self Care Charges/Coding Visit Charges Inpatient E&M: 88269 Disch Hosp >30min
--- NOTE | 2022-04-28 12:00 | CASEMGMT ---
JACQUES PAINTING Face to Face with patient for initial transition planning/care coordination assessment. JACQUES PAINTING introduced self and role at [facility]. Patient lying in bed, alert and oriented. Patient willing to participate in assessment and is able to answer all questions appropriately. Care providers, pharmacy, and demographics verified. Patient wishes to discharge home and states he is interested in HHC, patient declined list and had no preferences on HHC agency, JACQUES PAINTING updated patient regarding [facility] and is agreeable to have referral sent to them. Patient states he has no further needs or concerns at this time. CM to follow for discharge planning needs that may arise. PCP: [facility]: follows with associate dentist in [facility] Prescription Benefit: yes Living Will/HPOA: none LNOK: son and daughter Living Arrangements: Patient lives with son and daughter in a 2 story duplex with bed and bath on first floor. Patient states his daughter asssists with ADLs at home. Transportation: daughter DME/HHC: Patient states he has shower chair, raised toilet, grab bars, walker, and wheelchair at home. Disposition Plan: Patient to discharge home with HHC, family support, and follow-up plans in place. Doreen QURESHI, RN, CM
--- NOTE | 2022-04-28 13:00 | CASEMGMT ---
JACQUES PAINTING called and made referral to [facility] to setup [facility], they would be able to accept patient next week. JCAQUES PAINTING updated patient and he was agreeable to [facility]. JACQUES PAINTING sent referral to [facility] via [employer]. CM will continue to follow this patient and plan for a safe discharge.
--- NOTE | 2022-04-28 13:24 | CASEMGMT ---
Patient needs transportation home. Patient usually utilizes a wheelchair. Patient has [facility] Rosalina. DAVID let Wes know that [facility] is our preferred provider and patient will need a wheelchair provided. Trip number is [id number]. Ayla PERRY
[2022-04-28 14:00] VITALS: BP 156/94; PULSE 55; RESP 16; RESP 18; TEMP 36.6; O2SAT 100
--- NOTE | 2022-04-28 14:20 | CASEMGMT ---
DAVID called [facility] and checked status of transport request. DAVID spoke with Marlene. Marlene said a provider still has not been found. Marlene said she will send it to the routing dept again. DAVID asked her to please make sure they know that if they call [facility] they will take the transport no problem. Marlene said that is in the notes and she will re-iterate this. Ayla Johnson MUD CLEANER OPERATOR VICKY
--- NOTE | 2022-04-28 14:54 | CASEMGMT ---
Patient is now being pink slipped. DAVID called [facility] and spoke with Yanci. SW canceled patient's pickers material handlers request. Ayla Johnson MSW VICKY
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
--- NOTE | 2022-04-28 17:46 | NURSING ---
20 plus minutes spent talking with patient to get covid swab required to facilitate placement. Pt refusing, states wants to know where he is going and for how long prior to taking test. Explained to patient that we cannot get a placement until we have an negative covid test and he can not got home until he has been evaluated at a psychiatric facility. Patient angry, raising voice and cussing. I spoke kindly and asked him to do the same, language improved. After physical security manager spoke with patient, he finally consented to the covid test. I offered to allow him to swab himself with my direction, he declined and allowed me to swab bilateral nares. Specimen sent to lab. social group worker notified specimen obtained.
--- NOTE | 2022-04-28 18:38 | CM.ED ---
DAVID called intake at [facility]. They have 1 opening tomorrow and one person slated for that room. No discharges over the weekend. [facility] said it may be Monday or Monday till patient would be admitted. DAVID called [facility] and they have beds. DAVID made referral. Shayy BENTLEY
--- NOTE | 2022-04-28 18:57 | CM.ED ---
SW was updated by security Param, that specimen was received. Shayy BENTLEY
--- NOTE | 2022-04-28 19:46 | CM.ED ---
DAVID faxed referral to [facility]. DAVID called and updated [facility] staff questions. DAVID requested call back with update. DAVID called [facility]. The phone number of [facility] answered and then disconnected and law writer could not leave message. DAVID faxed faxed referral. DAVID called [facility]. They have [facility]. DAVID faxed referral to [facility]. DAVID called [facility]. They have no [facility] psych beds. DAVID called [facility]. They are at capacity. DAVID called [facility] and left voice mail message. Shayy BENTLEY
--- NOTE | 2022-04-28 20:11 | CM.ED ---
SW received call back from [facility] at [facility]. They do not take patient's insurance. Shayy BENTLEY
[2022-04-28 20:59] VITALS: BP 126/66; PULSE 59; RESP 20; TEMP 36.6; O2SAT 99
--- NOTE | 2022-04-28 21:16 | CM.ED ---
DAVID called [facility]. He was declined by MD due to their feeling he was too medically complex. DAVID called [facility]. Their high acuity unit is pretty intense and intake has concerns about adding patient to the unit. She asked if patient could go tomorrow and David said that patient could go on Monday. DAVID called [facility]. They received the referral but had not looked at it yet. DAVID got voice mail from [facility]. [facility] requested call back but did not leave number. DAVID called the number 2x that [facility] Rock had called from and it went to a recorded message with no opportunity to leave voice mail message. DAVID called [facility] and was told that the glueline worker will call this technical document writer back. Shayy BENTLEY
[2022-04-28] MEDS: Atorvastatin Calcium 40 MG Tablet PO (21:17)
[2022-04-28] MEDS: Smz/Tmp Ds Tablet 1 TABLET PO (21:17)
--- NOTE | 2022-04-28 21:29 | NURSING ---
[facility] called back and unable to take pt at this time. Staff states there will be some DCs tomorrow, and that we can try to resend referral again tomorrow if pt still doesn't get a placement.
--- NOTE | 2022-04-28 22:29 | CM.ED ---
DAVID called and gave handoff to Rhina at Crisis. DAVID had updated Doreen at Crisis earlier this evening about patient and his need for inpatient psych. DAVID called vish Nelson RN and updated her that we are waiting response from [facility] and [facility]. DAVID sent the original pink slip to the unit for placement in the chart. DAVID faxed referral packet to crisis for their review. Shayy BENTLEY
--- NOTE | 2022-04-29 04:46 | NURSING ---
Patient refusing assessment, vitals, IV and some medications. Physician aware. Patient is A/O and able to fully express needs/ wants. Verbally threatens RN when asked to take meds/ do assessment.
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
--- NOTE | 2022-04-29 08:55 | NURSING ---
Bridgett from Crisis called to request an information on what referrals have been made and requested chart documentation be faxed. Updates and chart materials provided.
--- NOTE | 2022-04-29 10:09 | NURSING ---
0800 pt had nurse called to room and laying in bed while rn to room to answer any questions. pt started rt away escalating and raising voice and using profanities asking to see the white haired bitcourtney and that sommer Low or whatever his name is . that kae slipped me in here by 8:10 to explain why im still sitting in here after 3 days?!! thats false imprisonment! either tag me and send me or let me the fuck out!! that nurse asif yest took me litteral when i told them that about i was going to kill someone. i only said that because you guys are killing me in here!! pt unable to reason with. explained that public health social worker not here till 10:00 and that rounds when comes to floor and would be in eventually. sitter remains at doorway. pt stated, i have a chronic nerve pain condition and i need to care of at home. i have pain all over!! i throb all over !!' when offered pt tylenol pt again refuses and becomes more aggitated and angry saying tylenol does not help me! chris told you people that!
--- NOTE | 2022-04-29 10:16 | NURSING ---
0830-updated pt that message left for opal to come see pt when came in for update and that message for crisis to call nurse with updates as well. pt again yelling out at nurse saying, i didnt want crisis! i wanted that asif who wrote that slip and the dr to come. tank charger aware.
--- NOTE | 2022-04-29 10:19 | NURSING ---
0900-dr. collins up to floor and in room sitting down with pt and spent great deal of time attempting to explain situation to pt but pt not wanting to hear any of it. could be heard yelling at drElle 2 doors down avendano. pt out in hallway then sitting in chair by sitter. security called with hospital information officer to attempt to get pt back in room and to diffuse poss elopement risk and escalation. still waiting to hear from crisis regarding placement facilities.
--- NOTE | 2022-04-29 10:22 | NURSING ---
1000-crisis called in and no updates yet heard back from sarah. will call [facility] for possible as well. pt back in room in chair. still refusing all care and meds
--- NOTE | 2022-04-29 10:27 | CASEMGMT ---
Addendum entered by Holly Dhaliwal 04/29/22 13:56: SW was contacted by [facility] to decline patient due to their facility not accepting patient's insurance. DAVID contacted [facility] and spoke with Bridgett to review facilities patient was declined by. Patient was declined by [facility], [facility], [facility], [facility] and [facility]. [facility] has no beds available. DAVID contacted electrophysiology scientist Alex to review declines from [facility]. RN explained she was working with to explore tertiary transfer to [facility], [facility], [facility] or [facility]. JACQUES Avitia then reported MD Wood had attempted to reach out to hospitals and had so far been informed hospitals were at capacity. DAVID informed JACQUES Avitia she would reach out to [facility] to discuss a referral. DAVID contacted [facility] and spoke with admissions staff. DAVID informed there were available beds and a referral can be sent to review. DAVID faxed referral to [facility] via fax. Plan: referral pending at [facility] for inpatient psych VICKY iTrado Addendum entered by Holly Dhaliwal 04/29/22 11:04: Patient declined by [facility]. Pending with [facility] VICKY [facility] Original Note: DAVID Note DAVID contacted [facility] to inquire about progress towards placement for patient. DAVID spoke with Sudha and was informed [facility] and [facility] have no beds available. Referrals pending with [facility] and [facility]. Plan: inpatient psych pending acceptance from facility VICKY Tirado
[2022-04-29] MEDS: Carvedilol 6.25 MG Tablet PO (11:01)
[2022-04-29] MEDS: Aspirin 81 MG TAB.CHEW PO (11:03)
[2022-04-29] MEDS: Potassium Chloride Oral Tablet 20 MEQ PO (11:03)
[2022-04-29] MEDS: Folic Acid 1 MG Tablet PO (11:03)
[2022-04-29] MEDS: Smz/Tmp Ds Tablet 1 TABLET PO ×2 (11:04→20:29)
[2022-04-29] MEDS: Pyridoxine HCl 100 MG Tablet PO (11:04)
[2022-04-29] MEDS: Clopidogrel Bisulfate 75 MG Tablet PO (11:04)
[2022-04-29] MEDS: Acetaminophen 325 MG Tablet 650 MG PO (11:06)
--- NOTE | 2022-04-29 11:25 | NURSING ---
1110 pt agreeable to take meds for nursing. dangling at bedside. pt pickng and choosing with nurse what meds will take however. refusing seizure med d/t did not have a seizure.... i just got 'seized up' when asked who called the squad pt replied that i asked my family too and im sorry i ever did. this is a sorry excuse for a hospital. pt given phone for transfer and talking to daughter now. pt calmer but asking if they conspired with in telling him that he needed to go to a [facility]'. pt then again asking for a directory to be brought in to get a model engine mechanic since they got me in here against my will. they only got 3 days to put me somewhere the said
--- NOTE | 2022-04-29 12:54 | NURSING ---
[facility] center called to inform that [facility] has declined patient because he is too medically acute. [facility] does not have any beds currently, but she subitted the referral anyway hoping for maybe tomorrow. Meanwhile, She recommended the physician consider initiating tertiary transfer.
--- NOTE | 2022-04-29 15:05 | CASEMGMT ---
Addendum entered by Holly Dhaliwal 04/29/22 22:26: SW was contacted by [facility] inquiring about patient's recent behaviors and medications provided. SW informed manager validationLeighann to follow up with [facility]. manager validation Amanda contacted SW to inform her patient was accepted to [facility]. Leighann plans to coordinate transportation for patient and requested SW speak with patient regarding placement. When SW arrived onto the unit, manager validation Amanda was able to coordinate transportation with an ETA for tomorrow 04/30/22 at 7am. SW met with patient. Patient was laying in the hospital bed with the lights off and instructed this worker to turn lights on. SW then informed patient he was accepted to [facility] for Psychiatry. Patient states he will not be going as the doctor that wrote the pink slip lied. Patient had a copy of the pink slip in his room and states the [employer] present in hospital gave him a copy. Patient is adamant the pink slip is a lie, his children did not make those states and explained it would be impossible for him to hurt anyone as he can't drive, barely walk and can barely lift his 20 pound grandson. Patient explained when he was woken up by the nurse yesterday he said I feel like I was stumped on, maybe it's my turn to stump on someone. Patient repeatedly stated he did not say the word kill and denies having a hit list. Patient explained if he was going to [facility] based on truth then he would accept it, but due to the pink slip having lies on it, he will refuse to go. Patient stated I might as well get dressed now because I will fight before they take me anywhere on lies. SW attempted to provide emotional support. Patient explained he wanted to have a meeting with the doctor, his children, SW and nurses to discuss the truth because the nurses can prove he didn't make those statements. Patient also reports he feels the doctor is lying because the patient hurt the doctor's feelings earlier by making inappropriate comments about the doctor's family. SW explained to patient due to the pink slip he would be going to [facility] as they have accepted him as a patient and it is unlikely that a meeting can be had before his transportation comes in the morning. Patient reports he wants transportation canceled and to stay until Monday so they meeting can occur. Patient requested SW contact his daughter as the doctor is lying about what his daughter said. SW explained she was unable to call his daughter at this time. SW explained she would discuss his concerns with the manager validation as well as SW loading and unloading supervisor, however, the current plan is patient will be transferred to [place] tomorrow at 7am. Patient again reports he will not be going. DAVID updated manager validation patient states he will refuse and fight in order to stay as he does not want to be pink slipped on lies. DAVID consulted with DAVID Perez, reviewing patient's admission and concerns at discharge that results in a pink slip. SW explained patient has a copy of the pink slip in his room and is fixated on what was written and continue to states the doctor lied. DAVID Perez requested this SW provide patient with Patient Advocate card and continue to attempt to validate his emotions while expressing he will be discharged tomorrow as planned to [facility]. DAVID briefly met with HRO to update them regarding patient, explaining he will be transferring to [place] tomorrow and is stating he will fight. DAVID inquired about the county sheriff that gave patient the pink slip, the HRO stated it was Officer Yaritza. DAVID explained the patient is fixated on the pink slip. DAVID met with patient and explained after talking with manager validation and supervising SW, patient will be going to [facility] as there is a pink slip. DAVID then explained there is a patient advocate the patient can contact to express his concerns. Patient inquired if the advocate is currently available, SW explained he was not. Patient declined the card stating that won't help me then. Patient reports he has been talking to his children and they are upset the hospital is lying. Patient reports he will not be going tomorrow. SW attempted to validate patient's frustration with the situation. Patient reports no one is listening. SW again encouraged patient to contact patient advocate as it is his job to make sure the patient is heard. Patient allowed SW to place the card on his table. Patient then continued to focus on the pink slip, stating it was lies and if it was the truth he would go without a problem. SW explained the advocate would be able to help with his concerns, however, due to the current pink slip patient will be transferred to [facility] at 7am. Patient continues to state he will not be going and wants to wait until Monday to talk with the advocate. Patient states he regrets asking for the pink slip because looking at it continues to frustrate him. SW asked patient if he wants the pink slip removed, patient declined. SW encouraged patient to get some rest as his transportation will be coming early in the morning. Patient explained he will not rest or have a good night. DAVID updated manager validation of interaction. Other floor RN inquired about patient's transportation home from [facility]. SW explained patient's insurance includes transportation benefits so [facility] will assist with discharge planning through his insurance. Plan: [place] at 7am VICKY Tirado Addendum entered by Holly Dhaliwal 04/29/22 18:57: [facility] declined patient due to staff feeling he would not be an appropriate addition with the current residents. Patient was also declined by [facility]. DAVID contacted [facility] and inquired about bed availability. SW provided brief verbal referral, admissions staff agreeable to SW sending referral via fax. SW faxed referral to [facility]. Elizabeth Avitia updated. Plan: pending referral at [facility] VICKY Tirado Addendum entered by Holly Dhaliwal 04/29/22 18:12: DAVID contacted [facility] to inquire about bed availability; DAVID informed beds are available and provided admissions staff with verbal referral. SW to also fax referral for their review. SW faxed referral. Plan: referrals pending at [facility] and [facility] VICKY Tirado Addendum entered by Holly Dhaliwal 04/29/22 17:37: DAVID contacted by admissions staff with [facility]; patient was declined due to their doctor feeling patient would need a medical bed, however, they have no medical beds available. Admissions staff report they will keep patient's referral if a medical bed becomes available. DAVID contacted [facility] to inquire about bed availability, admissions staff report no beds available. DAVID contacted [facility] to inquire about bed availability for inpatient psych, admissions staff report availability tomorrow at 10am. DAVID faxed referral to [facility]. Elizabeth Avitia updated. Plan: referral pending at [facility] VICKY Tirado Original Note: Social Work Note DAVID was contacted by Elizabeth Avitia and informed patient was requesting an update from DAVID. DAVID to follow up. DAVID met with patient and introduced herself and role as [facility] Insole Tacker. Patient is dressed in hospital gown, seating in a chair by his room doorway with sitter seated across the doorway, face to face with patient. DAVID provided patient with update explaining a referral had been sent to multiple hospitals, however, he had not been accepted by one yet. SW explained patient has a referral pending with [facility]. Patient reports no one is going to take me. Patient also reports he spoke to a prototype model maker who informed the patient the hospital has to release him on Monday as the 72 hr hold will . SW explained the pink slip 72 hr hold begins once the patient has arrived to a psychiatric hospital as there is no psychitric at [facility] that can evaluate patient. Patient is adamant that he legally has to be discharged on Monday. Patient explained I am being calm right now but I will not continue to be if you hold me against my will. SW attempted to validate patient's concerns while restating the 72 hr hold has not started. Patient repeating and requesting SW to update the board in his room that he will be discharged Monday. SW explained she does not update patient boards and will keep him updated regarding psych placement. DAVID updated JACQUES Avitia of conversation. DAVID contacted [facility] to inquire about update regarding referral. Admissions staff report she is contacting a doctor to further review the referral and inquired about a tox screen. DAVID explained patient was positive for opiates and cannabis from the tox screen on 04/27/22. Admissions staff explain if patient is accepted they will need alcohol levels as well. DAVID informed manager validation Alex alcohol levels will be needed. RN to order. Plan: pending referral at [facility] for inpatient psych Holly VENTURA, VICKY
--- NOTE | 2022-04-29 16:19 | NURSING ---
Birdgett from crisis called to update us that she has had no success. Final option is to re-approach [facility] tomorrow and she does not feel optimistic
--- NOTE | 2022-04-29 16:41 | NURSING ---
1500 pt sitting in door of room. attempted to get vitals but pt refused. stated, the only thing ill let you do is ge me papers out of here pt pointed out that showing half of back side by sitting out that far and asking if could please get back into room farther and pt refusing. stating, good, let them look if they want to
[2022-04-29 16:42] LABS: Alcohol, Blood (Medical)-Serum < 3.0 mg/dL
--- NOTE | 2022-04-29 16:43 | NURSING ---
1600-akash security and pd up on unit as lab here for etoh draw for poss placement as ordered.
[2022-04-29] MEDS: levETIRAcetam 500 MG Tablet PO (20:29)
[2022-04-29] MEDS: Atorvastatin Calcium 40 MG Tablet PO (20:29)
--- NOTE | 2022-04-29 20:48 | NURSING ---
pt medication given early d/t patient request and cooperation during this time.
--- NOTE | 2022-04-29 21:20 | NURSING ---
This RN requested DAVID Nash talk to pt regarding transfer to [facility] for Psychiatry. Per Charity, pt was updated on acceptance at facility and ETA for transportation. Charity adds that pt states that he is prepared to fight and does not want to willingly go to [facility]. Leobardo HANNA
--- NOTE | 2022-04-30 01:47 | NURSING ---
This RN received call from Josi, at [facility] for Psychiatry, inquiring pt medical status and ability to be cared for at a non medical hospital. Update given as to treatment given thus far and POC. Josi voices appreciation and is instructed to call if further questions arise. Leobardo HANNA
[2022-04-30 04:32] VITALS: BP 135/70; PULSE 65; RESP 19; TEMP 36.6; O2SAT 99
[2022-04-30 06:00] VITALS: BMI 31.6
--- NOTE | 2022-04-30 07:27 | PCM.DC.SUM ---
Providers Date of Admission: 04/27/22 Primary Care Physician: Dr. Jose Stubbs, DO Reason For Visit: SYNCOPE,CHEST PAIN Diagnosis Discharge Diagnosis (1) Seizure: Status: Acute Code(s): R56.9 - Unspecified convulsions Plan: Most likely etiology. EEG was concerning for seizure. Patient was evaluated by [facility] teleneurology who felt that this was seizure as well. Patient received 1 g of levetiracetam and then to continue with 500 twice daily thereafter. Discussed with the patient: No driving, no operating heavy machinery, no baths, no swimming by himself for the next 6 months as long as he is seizure-free. He states that he does not drive anyway. Outpatient neurology follow-up Likely due to the patient's history of cardiac arrest. MRI of the brain negative (2) Chest pain: Status: Acute Code(s): R07.9 - Chest pain, unspecified Qualifiers: Chest pain type: unspecified Qualified Code(s): R07.9 - Chest pain, unspecified Plan: Indeterminate cardiac enzyme with episodes of chest discomfort partially reproducible discomfort component: EKG in ED sinus rhythm with nonspecific ST changes with no acute evidence of ischemia, CXR w/ no acute cardiopulmonary findings, initial trop 80. Will place on a monitored bed to assure no acute myocardial infarction with serial cardiac enzymes and EKGs. Echo shows an EF of 55% Patient has known coronary artery disease with history of stents. Patient had a stress test sometime last year. Troponins were slightly elevated. Cannot rule out underlying concerning disease. I did recommend that the patient stay to get a stress test. He declined system going home. He understands that he cannot be ruled out for having pending heart attack. I told him there to be much easier for me to do in the hospital otherwise it may be several weeks if not longer before he can get that done as outpatient. (3) Abdominal wall cellulitis: Status: Acute Code(s): L03.311 - Cellulitis of abdominal wall Plan: Clinically is not suggestive of cellulitis but the CAT scan noted mild skin thickening and subcutaneous stranding of the lower anterior abdominal wall with question of cellulitis. Clinically I do not feel that he has cellulitis. We will continue with antibiotics for the possible hidradenitis. (4) Hydradenitis: Status: Acute Code(s): L73.2 - Hidradenitis suppurativa Plan: Right axilla small abscess with hidradenitis: Patient with concurrent as noted #2, wound culture and wound MRSA obtained, no marked periwound erythema, still able to express purulent material, will maintain on IV vancomycin as noted, encourage routine hygiene and skin care, dressing changes initiated. Culture performed and results pending Discharge with Bactrim. (5) Homicidal ideation: Status: Acute Code(s): R45.850 - Homicidal ideations Plan: Please see previous notes. Patient prior to discharge, was saying that he had people to kill. Would not elaborate nor refute the topic with myself nor with any please officer. Though patient is not felt to be an imminent risk, it is concerning for a psychiatric standpoint. Patient has deemed appropriate to be for inpatient psychiatric program. Crisis working on placement. Recently, the patient has been from his spouse of 28 years. He apparently has a kill list. People including his spouse as well as others who have wronged him. 04/29: Patient tells me that I came in knowing that his get a pink slip him when I initially came in. He was still evasive in regards to some questioning but would continue to talk over me when it once I started speaking. PT did note that he did not have anyone specific that he was going to kill. Yelled at me that he we have 72 hours to get him into facility. I asked him how he knew this information he said is because his has been pink slipped in the past. Still feel the patient does require some psychiatric evaluation and clearance before he can be returned to the community. Particular after he became very agitated and really did not seem at all remorseful for any of the comments that he had made previously or even today. Continue with quetiapine. 04/30: To be transferred to psychiatric unit today. Plan Chronic conditions: Chronic anemia, mildly macrocytic: Admission hemoglobin 12.9, prior baseline noted 12-13, stable, continue to trend, continue supplements. CAD: Status post prior PCI x3, will continue aspirin, Plavix, statin, Coreg, not on KRISTEL inhibitor/ARB. Hypertension: Continue home regimen including Coreg, PRN hydralazine. Hyperlipidemia: Continue home statin regimen. History CVA: Patient and family with reported chronic diffuse debilities although he is able to move all of his extremities but reports generalized weakness following a stroke and uses a walker chronically. We will continue aspirin, Plavix, statin, hypertensive regimen as noted. Tobacco Abuse: Encouraged continued cessation as he reports being tobacco free x2 weeks. Chronic cannabis usage: Patient with usage of chronic cannabis daily, UDS pending. Obesity: Weight loss and lifestyle changes encouraged. Discharge to inpatient psychiatric unit. Medications at Discharge Home Medications cholecalciferol (vitamin D3) 125 mcg (5,000 unit) capsule 10,000 unit DAILY 04/12/22 folic acid 1 mg tablet 1 mg PO DAILY #30 tabs 04/12/22 pyridoxine (vitamin B6) 100 mg tablet 100 mg PO DAILY #30 tabs 04/12/22 nystatin 100,000 unit/gram topical powder (Nyamyc) 100,000 unit topical DAILY 04/27/22 aspirin 81 mg chewable tablet 81 mg PO BREAKFAST #0 tabs 04/28/22 atorvastatin 40 mg tablet 40 mg PO DAILY #30 tabs 04/28/22 carvedilol 6.25 mg tablet 6.25 mg PO BID #60 tabs 04/28/22 clopidogrel 75 mg tablet 75 mg PO DAILY #30 tabs 04/28/22 levetiracetam 500 mg tablet 500 mg PO BID #60 tabs 04/28/22 nitroglycerin 0.4 mg sublingual tablet 0.4 mg sublingual PRN PRN CP #10 tabs 04/28/22 potassium chloride 20 mEq tablet,extended release(part/cryst) 20 meq PO DAILY #30 tabs 04/28/22 sulfamethoxazole 800 mg-trimethoprim 160 mg tablet (Bactrim DS) 1 tab PO BID #10 tabs 04/28/22 Hospital Course Operations None Procedures Electroencephalogram Summary of Care Provided Minutes Spent on Discharge: 26 Hospital Course: 61-year-old presents with period of unresponsiveness. Patient had a work-up and had activity that was consistent with a seizure. Patient was evaluated by neurology who felt this also was a seizure. Patient was started on levetiracetam. Patient was going to be discharged on the and then before he was discharged he told nursing that he had some people to kill. Went to evaluate the patient and he did not refute the claim but told me to stay out of it. And that I cannot change future. Is that that point in time that though this decision was made that the patient was unsafe to return home. Crisis was consulted. Crisis spoke with family and patient apparently had a kill list. So is felt the patient be best suited for a psychiatric unit. Took numerous facilities the patient was finally accepted and will be discharged this morning. Physical Exam Const Constitutional Narrative: Lying in bed, sleeping. Did not awake. Weight / BMI Weight Weight: 103 kg Body Mass Index (BMI) 31.6 ABG / Lab / Microbiology Data Result Diagrams: 04/27/22 09:02 04/27/22 09:02 Laboratory: Laboratory Results - last 24 hr 04/29/22 05:59: Ethyl Alcohol < 3.0 Microbiology: Microbiology 04/27/22 05:00 Wound Abcess - Axilla, Right Gram Stain - Final 04/27/22 05:00 Wound Abcess - Axilla, Right Wound Culture - Final Coag Negative Staph Gram positive shanika 04/28/22 17:38 Nasal Secretion SARS-CoV-2 Antigen (Rapid) - Final D/C Instructions Discharge Diet: Low fat / Low cholesterol Call your doctor if you observe: Chest pain and - (Seizure) Meaningful Use Info Meaningful Use Diagnoses (Choose all that apply): None applicable Discharge Plan Admission Admit Date/Time: 04/27/22 16:12 Primary Reason for Your Visit: Seizure Attending Provider: Ramesh Wood Primary Care Provider: Jose Stubbs Consulting Providers: Carolyn Lind Discharge Orders/Prescriptions Prescriptions: New levetiracetam 500 mg Tablet 500 mg PO BID Qty: 60 0RF aspirin 81 mg Tablet,Chewable 81 mg PO BREAKFAST Qty: 0 0RF sulfamethoxazole-trimethoprim [Bactrim DS] 800-160 mg tablet 1 tab PO BID Qty: 10 0RF Continued cholecalciferol (vitamin D3) 125 mcg (5,000 unit) capsule 10,000 unit DAILY Label Comments: take 2 capsules by mouth once daily folic acid 1 mg tablet 1 mg PO DAILY Qty: 30 0RF pyridoxine (vitamin B6) 100 mg tablet 100 mg PO DAILY Qty: 30 0RF nystatin [Nyamyc] 100,000 unit/gram powder 100,000 unit TOPICAL DAILY atorvastatin 40 mg tablet 40 mg PO DAILY Qty: 30 0RF carvedilol 6.25 mg tablet 6.25 mg PO BID Qty: 60 0RF Rx Instructions: must administer with a meal/food clopidogrel 75 mg tablet 75 mg PO DAILY Qty: 30 0RF potassium chloride 20 mEq tablet,ER particles/crystals 20 meq PO DAILY Qty: 30 0RF Label Comments: take 1 tablet by mouth once daily nitroglycerin 0.4 mg tablet, sublingual 0.4 mg sublingual PRN PRN (Reason: CP) Qty: 10 0RF Referrals / Follow Up: [facility] [Provider Group] - Within 1 Month [facility] [Provider Group] - Within 1 Month Jose Stubbs DO [Primary Care Provider] - Within 2 Weeks Disposition Disposition (needs filled in before D/C Order can be placed): Psychiatric Hospital or Unit Charges/Coding Visit Charges Inpatient E&M: 09106 Disch Hosp
--- NOTE | 2022-04-30 07:48 | NURSING ---
report told to squad squad took patient belongings were given to son per nightshift report
== END 2022-04-30 07:47 | DRG 53 ==
LOC: ED 04:17 → PCU 04:51
PROVIDERS: Admitting Provider Family Medicine; Emergency Provider Emergency Medicine; PCP Family Medicine
DX: R56.9 Unspecified convulsions (principal); F12.99 Cannabis use, unspecified with unspecified cannabis-induced disorder; R45.850 Homicidal ideations; I25.10 Atherosclerotic heart disease of native coronary artery without angina pectoris; E78.5 Hyperlipidemia, unspecified; I10 Essential (primary) hypertension; L73.2 Hidradenitis suppurativa; D53.9 Nutritional anemia, unspecified; B95.62 Methicillin resistant Staphylococcus aureus infection as the cause of diseases classified elsewhere; E66.9 Obesity, unspecified; R55 Syncope and collapse; R07.9 Chest pain, unspecified; Z95.5 Presence of coronary angioplasty implant and graft; Z68.31 Body mass index [BMI] 31.0-31.9, adult; Z79.02 Long term (current) use of antithrombotics/antiplatelets; Z79.82 Long term (current) use of aspirin; Z79.899 Other long term (current) drug therapy; Z86.73 Personal history of transient ischemic attack (TIA), and cerebral infarction without residual deficits; Z87.891 Personal history of nicotine dependence
CPT/HCPCS: J2785; Q9957; 36415; 70450; 70551; 71045; 74177; 80053; 80061; 80307; 82077; 82550; 83690; 83735; 84439; 84443; 84484; 85025; 87070; 87205; 87426; 87640; 93005; 93306; 94668; 95819; 96361; 96365; 96366; 96367; 96372; 96375; 97162; 97166; 97802; 99221; 99285; J7030; J7040; J7050; Q9967; A4216; G0378

== ENCOUNTER 2022-05-17 02:56 | Emergency (ER) | payer MEDICAID, SELFPAY ==
[2022-05-17 02:57] VITALS: BP 141/82; PULSE 91; RESP 12; TEMP 36.4; O2SAT 96; BMI 31.1
--- NOTE | 2022-05-17 03:14 | EKG12_ITS ---
Test Reason : DYSRHYTHMIA Blood Pressure : / mmHG Vent. Rate : 083 BPM Atrial Rate : 083 BPM P-R Int : 152 ms QRS Dur : 098 ms QT Int : 390 ms P-R-T Axes : 049 050 -79 degrees QTc Int : 458 ms Normal sinus rhythm Normal ECG Confirmed by DENIA MORSE, RUTH ([id number]), commissioning editor ZENOBIA JAMESON ([id number]) on 05/19/2022 9:22:03 AM Referred By: CARLTON Confirmed By:RUTH LOZA MD
[2022-05-17 03:20] LABS: Absolute Lymphocyte Count 4.28 X10^3/uL (0.83-4.51); Absolute Neutrophil Count 4.8 X10^3/uL (2.0-7.7); Basophil# 0.06 X10^3/uL; Basophil% 0.6 % (0-1); Eosinophil# 0.08 X10^3/uL; Eosinophils% 0.8 % (0-5); Hematocrit 37.1 % (40-54); Hemoglobin 12.2 g/dL (13.0-16.5); Lymphocyte # 4.28 X10^3/ul (0.83-4.51); Lymphocyte % 42.3 % (19-41); Mean Corp Hgb Conc 32.9 g/dL (32-36); Mean Corpuscular Hgb 32.2 pg (27.0-32.0); Mean Corpuscular Volume 97.9 fL (80-94); Mean Platelet Vol. 9.7 fl (6.2-12.0); Monocyte# 0.77 X10^3/uL; Monocyte% 7.6 % (0-10); NRBC Flagged by Analyzer 0 % (0-5); Neutrophil # 4.83 X10^3/uL (2.7-7.7); Neutrophil % 47.6 % (47-70); POSITIVE MORPHOLOGY YES; Platelet Count 308 K/mm3 (150-450); RBC Distribution Width SD 50.7 fl (35.1-43.9); Red Blood Count 3.79 M/mm3 (4.6-6.2); White Blood Count 10.1 K/mm3 (4.4-11.0)
[2022-05-17 03:22] LABS: Differential Indicated SCAN CRITERIA MET
--- NOTE | 2022-05-17 03:27 | CT_ITS ---
INDICATION: abd pain EXAMINATION: CT ABDOMEN AND PELVIS WITH CONTRAST - CT Abdomen And Pelvis W/ Contrast Injection TECHNIQUE: Helically acquired images were obtained of the abdomen and pelvis following IV contrast. A radiation dose optimization technique was used for this scan. IV Contrast dosage and agent: Oral contrast: None. COMPARISON: None. FINDINGS: LOWER CHEST: Lung bases are clear. No cardiomegaly or pericardial effusion. LIVER: Homogeneous. No focal mass. No intra- or extrahepatic biliary ductal dilation. PANCREAS: No focal cystic or solid mass. SPLEEN: Normal size without focal cystic or solid mass. ADRENAL GLANDS: No nodules. KIDNEYS AND URETERS: Normal renal size and position. No hydronephrosis. PERITONEUM: No ascites or free air. No other fluid collection. BOWEL: No evidence of acute appendicitis. No stomach or bowel distension. No focal inflammatory change. LYMPH NODES: No enlarged mesenteric or retroperitoneal lymph nodes. VESSELS: Aorta is non-dilated. URINARY BLADDER: Unremarkable. REPRODUCTIVE ORGANS: No pelvic masses. ABDOMINAL WALL: No discrete abdominal or pelvic wall hernia. BONES: No lytic or blastic abnormality. CT/Abdomen/Pelvis W IV Cont ONLY IMPRESSION: Negative CT of the abdomen and pelvis with contrast. Electronically Signed: Stephanie Urias MD at 4:32 EDT Reading Location ID and State: [facility] / [place] Tel , Service support ,
[2022-05-17 03:30] LABS: International Normalized Ratio 1.1; Prothrombin Time (Protime)PT. 14.3 SECONDS (11.7-14.9)
[2022-05-17 03:31] LABS: Partial Thromboplast Time 32.2 Seconds (24.1-36.2)
[2022-05-17 03:36] LABS: AST(SGOT) 17 U/L (15-37); Alanine Aminotransfer ALT/SGPT 27 U/L (16-61); Albumin, Serum 3.2 g/dL (3.2-5.0); Alkaline Phosphatase 85 U/L (45-117); Anion Gap 7 (5-15); BUN 5 mg/dL (7-18); BUN/Creat Ratio 4.6 RATIO (10-20); Bilirubin, Direct 0.12 mg/dL (0.00-0.30); Calcium,Total 9.4 mg/dL (8.5-10.1); Chloride 107 mmol/L (98-107); Creatinine, Serum 1.09 mg/dL (0.70-1.30); Differential Comment SCANNED; EST Glomerular Filtration Rate 73 mL/min (>60); Est Glom Filt Rate - Afr Amer 89 mL/min (>60); Estimated Creatinine Clearance 77.72 ml/min; Globulin 5.1 g/dL (2.2-4.2); Glucose 158 mg/dL (74-106); Protein, Total 8.3 g/dL (6.4-8.2); Sodium Level 143 mmol/L (136-145)
[2022-05-17] MEDS: Orphenadrine 60 MG/2 ML Ampul IV (03:36)
--- NOTE | 2022-05-17 04:16 | EX.ED.DYSGE1 ---
HPI History of Present Illness Chief Complaint: GI Bleed Narrative Narrative: Patient is a 61-year-old male with complex past medical history. He reports that he had a stroke at 1 point which is left him with partial paralysis however it affects all of his limbs and makes it difficult for him to ambulate. According to the patient's son who takes care of him he has not had a bowel movement for 1 week. Reportedly the son was changing the patient's pad this evening when he noticed there was a small amount of blood on it. He states he did not know if this was from a possible cyst or skin breakdown or if it was GI in nature. He states that he was helping the patient up when the blood just began to pour out of him. The patient denies any history of bleeding disorder and states he does not take a blood thinner. He reports that with the symptoms he has been having increased spasms and pain. Patient states that the pain is more diffuse and the spasms are low colitis more to the left arm and leg. He states this has happened in the past. Son states that there appeared to be a brief moment where the patient's mental status decreased with the blood per rectum but that there is no seizure activity. The patient denies this claim however. The son who is the custom applicator states he was told by the patient's heart doctor that if there is any GI bleed he needs to go to the hospital right away and secondary to this EMS was called to bring him in for evaluation [facility] Medical History CAD (coronary artery disease) Cannabis use disorder Hydradenitis Hyperlipidemia Hypertension Obesity Seizure Stroke Tobacco use Home Medications cholecalciferol (vitamin D3) 125 mcg (5,000 unit) capsule 10,000 unit DAILY 04/12/22 [History Last Taken Unknown] folic acid 1 mg tablet 1 mg PO DAILY #30 tabs 04/12/22 [Rx Last Taken Unknown] pyridoxine (vitamin B6) 100 mg tablet 100 mg PO DAILY #30 tabs 04/12/22 [Rx Last Taken Unknown] nystatin 100,000 unit/gram topical powder (Nyamyc) 100,000 unit topical DAILY 04/27/22 [History Last Taken Unknown] aspirin 81 mg chewable tablet 81 mg PO BREAKFAST #0 tabs 04/28/22 [Rx Last Taken Unknown] atorvastatin 40 mg tablet 40 mg PO DAILY #30 tabs 04/28/22 [Rx Last Taken Unknown] carvedilol 6.25 mg tablet 6.25 mg PO BID #60 tabs 04/28/22 [Rx Last Taken Unknown] clopidogrel 75 mg tablet 75 mg PO DAILY #30 tabs 04/28/22 [Rx Last Taken Unknown] levetiracetam 500 mg tablet 500 mg PO BID #60 tabs 04/28/22 [Rx Last Taken Unknown] nitroglycerin 0.4 mg sublingual tablet 0.4 mg sublingual PRN PRN CP #10 tabs 04/28/22 [Rx Last Taken Unknown] potassium chloride 20 mEq tablet,extended release(part/cryst) 20 meq PO DAILY #30 tabs 04/28/22 [Rx Last Taken Unknown] sulfamethoxazole 800 mg-trimethoprim 160 mg tablet (Bactrim DS) 1 tab PO BID #10 tabs 04/28/22 [Rx Last Taken Unknown] docusate sodium 100 mg capsule (Colace) 100 mg PO BID PRN constipation #30 caps 05/17/22 [Rx Last Taken Unknown] hydrocortisone acetate 25 mg rectal suppository (Anusol-HC) 25 mg MN DAILY 14 days #24 ea 05/17/22 [Rx Last Taken Unknown] quetiapine 100 mg tablet 100 mg PO QHS 05/17/22 [History Last Taken Unknown] trazodone 100 mg tablet 100 mg PO QHS 05/17/22 [History Last Taken Unknown] Allergy/AdvReac Type Severity Reaction Status Date / Time No Known Allergies Allergy Verified 05/17/22 02:57 Family History Mother Hypertension Diabetes Aunt Diabetes Surgical History H/O heart artery stent Hx of cholecystectomy Social History (Updated 04/27/22 @ 05:[address] Carolyn Lind MD) household members: family Smoking Status: Former smoker how long ago did patient quit smoking: Quit ~ 2 wks prior to presentation, intermittent Black & Milds since teen. alcohol intake: current alcohol intake frequency: holidays/special occasions only substance use type: marijuana ROS ROS ED Constitutional Constitutional ED: Denies chills or fever(s) ENT ENT ED: Denies sore throat Cardiovascular Cardiovascular: Denies chest pain Respiratory/Chest Respiratory/Chest: Denies cough or dyspnea Gastrointestinal Gastrointestinal: Reports abdominal pain, constipation and other Details: Positive GI bleed ; Denies diarrhea, nausea or vomiting Genitourinary Genitourinary ED: Denies dysuria or hematuria Musculoskeletal Musculoskeletal: Reports myalgias and other Details: Positive muscle spasm Integumentary Denies rash Neurologic Neurologic: Denies headache(s) Hematologic/Lymphatic Hematologic/Lymphatic: Denies easy bleeding or easy bruising EXAM Physical Exam Const Vital Signs: 05/17/22 02:57 Temperature 97.6 F L Temperature Source Temporal Pulse Rate 91 Respiratory Rate 12 Blood Pressure 141/82 H Blood Pressure Mean 101 Pulse Ox 96 Oxygen Delivery Method Room Air Positive well nourished and well developed General Appearance ED: well developed HEENT Reports dry mucous membranes HEENT Narrative: No airway edema or compromise. No changes in the posterior pharynx to suggest infection Mouth ED: Yes dry mucous membranes Mouth: dry mucous membranes Eyes PERRL and EOMs intact bilaterally General Eye ED: Negative for pale conjunctiva Neck supple Resp normal respiratory effort and clear to auscultation bilaterally Resp Narrative: Breath sounds are diminished throughout but overall clear to auscultation with no signs of distress Cardio regular rate and regular rhythm Rate: other Other Details: Radial pulses are plus 2 out of 4 bilaterally are equal and symmetric GI non-tender, non-distended and no masses GI Narrative: At soft nontender nondistended with hypoactive bowel sounds. No voluntary guarding or rigidity. No pulsatile mass Auscultation: hypoactive bowel sounds Palpation: soft Narrative: Rectal exam displays no signs of external hemorrhoid or anal fissure. No pilonidal cyst or obvious gluteal abscess or soft tissue breakdown to suggest decubitus ulcer. Rectal tone is normal. Internal exam displays hard tej stool. The stool is mucousy brown in color. There is a small firm nodule around the 12 o'clock position of the internal rectum most consistent with internal hemorrhoid. Extremity Extremity Narrative: Patient has trace to +1 pitting edema to the bilateral lower extremities from the foot to mid lopez. He has chronic weakness of his arms and legs consistent with history of previous stroke and partial paralysis. No obvious bony deformity or joint effusion Neuro oriented x3 Neuro Narrative: Patient has chronic deficits from previous stroke but no new or acute finding Sensorium / Orientation: alert Psych Psych Narrative: Patient has a flat affect Skin no rashes or lesions noted MDM MDM MDM Narrative Medical decision making narrative: Patient arrived to the ER awake and alert with stable vitals and a nonsurgical abdomen. The patient and son are both poor historians and obtaining a history over what occurred this evening is difficult. I reviewed his chart from April of this year and he presented with similar complaint muscle tension and spasm increased pain and a brief episode of confusion without seizure-like activity. The son reported that there was blood just oozing out of his rectum however on my exam there is no active bleeding present. There is an internal hemorrhoid on palpation and this history of constipation and bleeding that was dark and then changed to light red would correlate with a ruptured hemorrhoid. Because there is concern he could be anemic and need a blood transfusion or have derangement to his bleeding times or have some type of other internal reason for bleeding such as diverticulosis or abscess formation basic labs and a CT scan were obtained. Labs revealed a stable H&H near the patient's baseline with normal bleeding times and otherwise no electrolyte derangement or acute kidney injury. CT scan showed no acute inflammatory infectious or obstructive process. The patient is not requiring a blood transfusion his vitals are stable and his stool was not melanotic or bright red in exam but normal mucousy brown. With the Hemoccult test being positive this does correlate with the son's report of blood per rectum. However based on his exam showing internal hemorrhoid this is most likely the cause as he has been constipated. As he does not have need for transfusion and vitals are stable and he has no further active bleeding I do not feel it is necessary to keep him in the hospital for colonoscopy. Patient will be put on stool softeners to help prevent irritation from the constipation as well as a rectal suppository for the internal hemorrhoid and is otherwise safe for discharge. This plan of care was discussed with the patient and family and both are agreeable to it. History & Record Review Discussion w/independent historian: EMS personnel, Patient and Family Lab Data Attestation: I reviewed the patient's lab results. Labs: Laboratory Results - last 24 hr 05/17/22 05/17/22 05/17/22 03:03 03:03 03:03 WBC 10.1 RBC 3.79 L Hgb 12.2 L Hct 37.1 L MCV 97.9 H MCH 32.2 H MCHC 32.9 RDW Std Deviation 50.7 H RDW Coeff of Subhash 14.0 Plt Count 308 MPV 9.7 Immature Gran % (Auto) 1.100 H Neut % (Auto) 47.6 Lymph % (Auto) 42.3 H [place] % (Auto) 7.6 Eos % (Auto) 0.8 Baso % (Auto) 0.6 Absolute Neuts (auto) 4.8 Absolute Lymphs (auto) 4.28 Nucleated RBC % 0 Differential Comment SCANNED PT 14.3 INR 1.1 APTT 32.2 Sodium 143 Potassium 4.0 Chloride 107 Carbon Dioxide 29.0 Anion Gap 7 BUN 5 L Creatinine 1.09 Estim Creat Clear Calc 77.72 Est GFR (MDRD) Af Amer 89 Est GFR (MDRD) Non-Af 73 BUN/Creatinine Ratio 4.6 L Glucose 158 H Calcium 9.4 Magnesium Total Bilirubin 0.30 Direct Bilirubin 0.12 AST 17 ALT 27 Alkaline Phosphatase 85 Total Protein 8.3 H Albumin 3.2 Globulin 5.1 H 05/17/22 03:23 WBC RBC Hgb Hct MCV MCH MCHC RDW Std Deviation RDW Coeff of Subhash Plt Count MPV Immature Gran % (Auto) Neut % (Auto) Lymph % (Auto) [place] % (Auto) Eos % (Auto) Baso % (Auto) Absolute Neuts (auto) Absolute Lymphs (auto) Nucleated RBC % Differential Comment PT INR APTT Sodium Potassium Chloride Carbon Dioxide Anion Gap BUN Creatinine Estim Creat Clear Calc Est GFR (MDRD) Af Amer Est GFR (MDRD) Non-Af BUN/Creatinine Ratio Glucose Calcium Magnesium 2.0 Total Bilirubin Direct Bilirubin AST ALT Alkaline Phosphatase Total Protein Albumin Globulin Radiography Diagnostic Testing: Clinical Impression(s) from Imaging Studies Abdomen/Pelvis CT 05/17/22 03:27 IMPRESSION: Negative CT of the abdomen and pelvis with contrast. Electronically Signed: Stephanie Urias MD at 4:32 EDT , Discharge Plan Triage Chief Complaint: GI Bleed ED Provider: Santino Nova Dx/Rx/DC Orders Clinical Impression: Bleeding internal hemorrhoids, Constipation, History of stroke Instructions: ED Constipation (Adult), ED Hemorrhoids Prescriptions: New docusate sodium [Colace] 100 mg capsule 100 mg PO BID PRN (Reason: constipation) Qty: 30 0RF hydrocortisone acetate [Anusol-HC] 25 mg suppository 25 mg MN DAILY 14 Days Qty: 24 1RF No Action cholecalciferol (vitamin D3) 125 mcg (5,000 unit) capsule 10,000 unit DAILY Label Comments: take 2 capsules by mouth once daily folic acid 1 mg tablet 1 mg PO DAILY Qty: 30 0RF pyridoxine (vitamin B6) 100 mg tablet 100 mg PO DAILY Qty: 30 0RF nystatin [Nyamyc] 100,000 unit/gram powder 100,000 unit TOPICAL DAILY levetiracetam 500 mg Tablet 500 mg PO BID Qty: 60 0RF aspirin 81 mg Tablet,Chewable 81 mg PO BREAKFAST Qty: 0 0RF sulfamethoxazole-trimethoprim [Bactrim DS] 800-160 mg tablet 1 tab PO BID Qty: 10 0RF atorvastatin 40 mg tablet 40 mg PO DAILY Qty: 30 0RF carvedilol 6.25 mg tablet 6.25 mg PO BID Qty: 60 0RF Rx Instructions: must administer with a meal/food clopidogrel 75 mg tablet 75 mg PO DAILY Qty: 30 0RF potassium chloride 20 mEq tablet,ER particles/crystals 20 meq PO DAILY Qty: 30 0RF Label Comments: take 1 tablet by mouth once daily nitroglycerin 0.4 mg tablet, sublingual 0.4 mg sublingual PRN PRN (Reason: CP) Qty: 10 0RF quetiapine 100 mg Tablet 100 mg PO QHS trazodone 100 mg Tablet 100 mg PO QHS Primary Care Provider: Jose Stubbs Referrals: Jose Stubbs, DO [Primary Care Provider] - Activity Restrictions/Additional Instructions: Your work-up today shows that your blood volume is at your baseline and does not require transfusion. The stool found on your exam was normal and not bright red or dark however there was microscopic blood present. Your CAT scan reveals no acute infectious or obstructive processes. Your exam shows an internal hemorrhoid which was most likely ruptured by your constipation. Please take the Colace as directed to help with constipation and use the rectal suppository to resolve/shrink the internal hemorrhoid. You may have rebleeding if the hemorrhoid ruptures once again. If this occurs and only lasts for 5 to 10 minutes it is safe to stay home. However if bleeding persists or there is change to her mental status such as you pass out or you have any further concerns please return to the ER for repeat evaluation. Disposition Disposition: Home, Self Care
[2022-05-17 04:57] VITALS: BP 109/62; PULSE 78; RESP 16
--- NOTE | 2022-05-17 05:07 | NURSING ---
CALLED PHYSICIANS TO SET UP TRANSPORT TO HIS HOME- [place] [id number]
== END 2022-05-17 07:01 | disposition home or self-care (01) ==
PROVIDERS: Emergency Provider Emergency Medicine; PCP Family Medicine; Visit Provider Emergency Medicine
DX: K64.8 Other hemorrhoids (principal); K59.00 Constipation, unspecified; F12.90 Cannabis use, unspecified, uncomplicated; E78.5 Hyperlipidemia, unspecified; I10 Essential (primary) hypertension; I25.10 Atherosclerotic heart disease of native coronary artery without angina pectoris; Z79.82 Long term (current) use of aspirin; Z79.899 Other long term (current) drug therapy; Z86.73 Personal history of transient ischemic attack (TIA), and cerebral infarction without residual deficits; Z87.891 Personal history of nicotine dependence
CPT/HCPCS: 74177; 80048; 80076; 82274; 83735; 85025; 85610; 85730; 93005; 96361; 96374; 99284; J7040; Q9967; A4216

== ENCOUNTER 2022-05-21 01:39 | Emergency (ER) | payer MEDICAID, SELFPAY ==
[2022-05-21 01:41] VITALS: BP 118/77; PULSE 65; RESP 13; TEMP 35.2; O2SAT 98
[2022-05-21 01:48] VITALS: O2SAT 98
--- NOTE | 2022-05-21 01:48 | EKG12_ITS ---
Test Reason : CP Blood Pressure : / mmHG Vent. Rate : 063 BPM Atrial Rate : 063 BPM P-R Int : 162 ms QRS Dur : 098 ms QT Int : 442 ms P-R-T Axes : 052 041 141 degrees QTc Int : 452 ms Normal sinus rhythm Minimal voltage criteria for LVH, may be normal variant ( [place] ) Nonspecific T wave abnormality Abnormal ECG Confirmed by MORENO MORSE, KYLE ([id number]), web editor ZENOBIA JAMEOSN ([id number]) on 05/23/2022 12:27:12 P M Referred By: ALEAH Confirmed By:KACI MAYER MD
--- NOTE | 2022-05-21 02:00 | EDS_ITS ---
HPI History of Present Illness Chief Complaint: Chest Other Detail of Chief Complaint: Atypical, nonexertional chest pain. Resolved. Informant: patient Onset/Context/Timing Onset: Today and Hours Activity at onset: sudden Timing: Intermittent Location: Right Chest and Left Chest Current Severity: Gone Maximum Severity: Mild Worsened By: Nothing Relieved By: Nothing Associated Symptoms: Negative for Nausea, Vomiting, Diaphoresis, Dyspnea, Cough, Fever, Lightheadedness, Acid Reflux or Palpitations Narrative Narrative: 61-year-old male history of hypertension, stroke and coronary artery disease with 3 stents. States he was at home tonight and he locked up. He has had this happen before. He was evaluated 4 days ago for similar symptoms. His work-up was negative was discharged home. He said tonight while this came on he had a sharp pain run across his chest from the right to the left. It lasted 1- 1/2 hours and is now gone. He denies any nausea, vomiting, diarrhea or diaphoresis. He is not short of breath. He denies any hemoptysis. This was not associated with exertion. He has not had recent exertional chest pain or shortness of breath. He has had no fever or chills. He has never had a DVT or PE. No recent travel, surgery or immobilization. No calf pain. He does have chronic swelling in his lower extremities. Prior Similar Symptoms: Yes Recent Illness/Hospitalization: No CVD Risk Factors: Positive for Hypertension; Negative for Diabetes or Smoking PE Risk Factors: Negative for Recent Travel/Surgery, Recent Immobilization, Prior DVT or PE, Cancer or OCP + Smoking + >/=35 TAD Risk Factors: Negative for Marfan's Syndrome PFSH PFSH Medical History CAD (coronary artery disease) Cannabis use disorder Hydradenitis Hyperlipidemia Hypertension Obesity Seizure Stroke Tobacco use Home Medications cholecalciferol (vitamin D3) 125 mcg (5,000 unit) capsule 10,000 unit DAILY 04/12/22 [History Last Taken Unknown] folic acid 1 mg tablet 1 mg PO DAILY #30 tabs 04/12/22 [Rx Last Taken Unknown] pyridoxine (vitamin B6) 100 mg tablet 100 mg PO DAILY #30 tabs 04/12/22 [Rx Last Taken Unknown] nystatin 100,000 unit/gram topical powder (Nyamyc) 100,000 unit topical DAILY 04/27/22 [History Last Taken Unknown] aspirin 81 mg chewable tablet 81 mg PO BREAKFAST #0 tabs 04/28/22 [Rx Last Taken Unknown] atorvastatin 40 mg tablet 40 mg PO DAILY #30 tabs 04/28/22 [Rx Last Taken Unknown] carvedilol 6.25 mg tablet 6.25 mg PO BID #60 tabs 04/28/22 [Rx Last Taken Unknown] clopidogrel 75 mg tablet 75 mg PO DAILY #30 tabs 04/28/22 [Rx Last Taken Unknown] levetiracetam 500 mg tablet 500 mg PO BID #60 tabs 04/28/22 [Rx Last Taken Unknown] nitroglycerin 0.4 mg sublingual tablet 0.4 mg sublingual PRN PRN CP #10 tabs 04/28/22 [Rx Last Taken Unknown] potassium chloride 20 mEq tablet,extended release(part/cryst) 20 meq PO DAILY #30 tabs 04/28/22 [Rx Last Taken Unknown] sulfamethoxazole 800 mg-trimethoprim 160 mg tablet (Bactrim DS) 1 tab PO BID #10 tabs 04/28/22 [Rx Last Taken Unknown] docusate sodium 100 mg capsule (Colace) 100 mg PO BID PRN constipation #30 caps 05/17/22 [Rx Last Taken Unknown] hydrocortisone acetate 25 mg rectal suppository (Anusol-HC) 25 mg AR DAILY 14 days #24 ea 05/17/22 [Rx Last Taken Unknown] quetiapine 100 mg tablet 100 mg PO QHS 05/17/22 [History Last Taken Unknown] trazodone 100 mg tablet 100 mg PO QHS 05/17/22 [History Last Taken Unknown] Allergy/AdvReac Type Severity Reaction Status Date / Time No Known Allergies Allergy Verified 05/21/22 01:48 Family History Mother Hypertension Diabetes Aunt Diabetes Surgical History H/O heart artery stent Hx of cholecystectomy Social History household members: family Smoking Status: Former smoker how long ago did patient quit smoking: Quit ~ 2 wks prior to presentation, intermittent Black & Milds since teen. alcohol intake: current alcohol intake frequency: holidays/special occasions only substance use type: marijuana ROS ROS ED ROS Narrative Denies recent illness. Review of Systems ROS Unobtainable: Denies due to encephalopathy Constitutional Constitutional ED: Denies chills or fever(s) Eyes Eyes: Reports none ENT ENT ED: Denies ear pain Cardiovascular Cardiovascular: Reports as per HPI and chest pain; Denies palpitations Respiratory/Chest Respiratory/Chest: Denies cough or dyspnea Gastrointestinal Gastrointestinal: Denies abdominal pain Genitourinary Genitourinary ED: Denies dysuria or hematuria Musculoskeletal Musculoskeletal: Denies arthralgias or back pain Integumentary Denies abscess Neurologic Neurologic: Denies headache(s) Psychiatric Psychiatric: Denies anxiety or depression Endocrine Endocrinology: Denies cold intolerance Hematologic/Lymphatic Hematologic/Lymphatic: Denies easy bleeding or easy bruising Allergic/Immunologic Allergic/Immunologic ED: Denies mouth swelling or tongue swelling EXAM Physical Exam Narrative Exam Narrative: Middle-age male no acute distress. Vital signs are stable afebrile. Pulse ox 90% on room air no signs of hypoxia. H EENT exam unremarkable. He is chewing tobacco in his mouth. Neck nontender no JVD. Lungs clear to auscultation bi laterally. Heart regular rhythm rate about 65 no murmur. Chest wall nontender. Abdomen soft nontender. Normal bowel sounds no peritoneal signs. Moving all 4 extremities. Equal symmetrical radial pulses. He has trace edema both lower extremities which she tells me is chronic. Neurologically he is awake and alert. Answering questions and following commands. Const Vital Signs: 05/21/22 01:41 05/21/22 01:48 05/21/22 04:59 Temperature 95.4 F L Temperature Source Temporal Pulse Rate 65 54 L Respiratory Rate 13 16 Blood Pressure 118/77 103/75 Blood Pressure Mean 90 84 Pulse Ox 98 98 99 Oxygen Delivery Method Room Air Room Air Room Air Positive well nourished and well developed; Negative for cachectic, contractures or unkempt General Appearance ED: well developed; Negative for unkempt, cachectic, contractures or pallor Nutritional Appearance: Negative for cachectic HEENT Reports moist mucous membranes normocephalic and atraumatic; Negative for trauma or tenderness Eyes PERRL and EOMs intact bilaterally General Eye ED: Negative for pale conjunctiva or scleral icterus Neck no lymphadenopathy, supple and no JVD General: Negative for tenderness Chest Wall inspection of chest normal and palpation of chest normal Chest: Negative for tenderness Resp normal respiratory effort and clear to auscultation bilaterally Effort and Inspection: Negative for respiratory distress Auscultation: Negative for rales, rhonchi or wheezes Cardio regular rate, regular rhythm, S1 normal heart sound, S2 normal heart sound and no murmurs Rate: Negative for bradycardia or tachycardic Rhythm: Negative for abnormal rhythm Peripheral Pulses: pulses 2+ throughout GI normal to inspection, nondistended, normoactive bowel sounds, soft to palpation, non-tender, non-distended and no masses Auscultation: Negative for hyperactive bowel sounds Palpation: Negative for splenomegaly, mass or other Extremity Negative for normal to inspection General Extremety ED: Yes edema; Negative for pulses abnormal or tenderness General Extremity: edema; Negative for pulses abnormal Neuro oriented x3 and CN's II-XII intact bilaterally Sensorium / Orientation: awake, alert, oriented to person, oriented to place and oriented to time; Negative for confused, lethargic or stuporous Motor Exam: strength 5/5 throughout Psych mental status grossly normal Appearance: Negative for unkempt Attitude: No agitated Mood & Affect: Negative for depressed or anxious Skin no rashes or lesions noted and no wounds General Skin Exam: Negative for jaundice or pallor Rashes: No rashes noted Trauma: Negative for abrasion or laceration Heart Score History: Slightly/Non-Suspicious ECG: Normal Age: >45 - <65 years Risk Factors: >/= 3 Risk Factors or History of CAD Troponin: </= Normal Limit Score: 3 MDM MDM MDM Narrative Medical decision making narrative: 61-year-old male describes a sensation of locking up. Also with atypical, nonexertional chest pain is resolved. He does have a significant cardiac history with 3 stents. He is on Plavix and aspirin. He has never had a DVT or PE. The pain was not pleuritic. He has no hemoptysis or shortness of breath. He is not hypoxic. He will undergo a cardiac work-up. He had similar symptoms 4 days ago had a negative work-up at that time and was discharged to home. I do not have a strong suspicion this is cardiac at this time. Repeat exam patient is doing well at 5:04 AM. We went over all his test results. Clinically this does not sound like cardiac chest pain. He had a recent evaluation of a cardiac work-up that was negative also through [facility]. I am comfortable to be discharged home with outpatient follow- up with his primary care physician. History & Record Review Discussion w/independent historian: Patient Lab Data Attestation: I reviewed the patient's lab results. Lab results narrative: CBC shows white count 10.1. H&H 12.2 and 37.3 which is his baseline chronic anemia. Platelets 379. Electrolytes show a gap of 5 and normal BUN 9 creatinine 0.9. Glucose 104. Initial troponin is 64. Chest x-ray is unremarkable. Second, 2-hour troponin is 57 and actually less than the first. Labs: Laboratory Results - last 24 hr 05/21/22 05/21/22 05/21/22 02:16 02:16 04:16 WBC 10.1 RBC 3.82 L Hgb 12.2 L Hct 37.3 L MCV 97.6 H MCH 31.9 MCHC 32.7 RDW Std Deviation 49.8 H RDW Coeff of Subhash 13.8 Plt Count 379 MPV 8.9 Immature Gran % (Auto) 0.600 Neut % (Auto) 50.9 Lymph % (Auto) 42.0 H Loving % (Auto) 5.5 Eos % (Auto) 0.6 Baso % (Auto) 0.4 Absolute Neuts (auto) 5.1 Absolute Lymphs (auto) 4.23 Nucleated RBC % 0 Sodium 141 Potassium 4.1 Chloride 108 H Carbon Dioxide 28.0 Anion Gap 5 BUN 9 Creatinine 0.94 Estim Creat Clear Calc 90.12 Est GFR (MDRD) Af Amer 105 Est GFR (MDRD) Non-Af 87 BUN/Creatinine Ratio 9.5 L Glucose 104 Calcium 9.4 Troponin I High Sens 64 57 Radiography Chest X-Ray - ED: 1 View, Read by ED Physician, Read by Radiologist, Heart, Lungs, Mediastinum, Bony Structures, No Acute Disease and Chronic Changes Diagnostic Testing: Clinical Impression(s) from Imaging Studies Chest X-Ray 05/21/22 02:25 IMPRESSION: No radiographic evidence of acute cardiopulmonary disease. Electronically Signed: Stephanie Urias MD at 2:42 EDT , Chest x-ray, portable, single view interpreted by myself and radiologist shows no acute abnormality. Normal cardiac silhouette mediastinum. Normal lung lee. Rhythm Strip Rhythm Strip: Sinus Rhythm Rate: 63 Ectopy: None EKG Initial EKG: Attestation: I personally reviewed and interpreted this EKG as follows: Interpretation: Sinus Rhythm and No Acute Injury Pattern Comments: Normal sinus rhythm rate of 63 no acute signs of SC or ischemia. Prior EKG tracings: available for review Prior: Unchanged Discharge Plan Triage Chief Complaint: Chest Other ED Provider: Tye Robles Dx/Rx/DC Orders Clinical Impression: Chest pain Instructions: ED Chest Pain, Uncertain Cause Prescriptions: No Action cholecalciferol (vitamin D3) 125 mcg (5,000 unit) capsule 10,000 unit DAILY Label Comments: take 2 capsules by mouth once daily folic acid 1 mg tablet 1 mg PO DAILY Qty: 30 0RF pyridoxine (vitamin B6) 100 mg tablet 100 mg PO DAILY Qty: 30 0RF nystatin [Nyamyc] 100,000 unit/gram powder 100,000 unit TOPICAL DAILY levetiracetam 500 mg Tablet 500 mg PO BID Qty: 60 0RF aspirin 81 mg Tablet,Chewable 81 mg PO BREAKFAST Qty: 0 0RF sulfamethoxazole-trimethoprim [Bactrim DS] 800-160 mg tablet 1 tab PO BID Qty: 10 0RF atorvastatin 40 mg tablet 40 mg PO DAILY Qty: 30 0RF carvedilol 6.25 mg tablet 6.25 mg PO BID Qty: 60 0RF Rx Instructions: must administer with a meal/food clopidogrel 75 mg tablet 75 mg PO DAILY Qty: 30 0RF potassium chloride 20 mEq tablet,ER particles/crystals 20 meq PO DAILY Qty: 30 0RF Label Comments: take 1 tablet by mouth once daily nitroglycerin 0.4 mg tablet, sublingual 0.4 mg sublingual PRN PRN (Reason: CP) Qty: 10 0RF quetiapine 100 mg Tablet 100 mg PO QHS trazodone 100 mg Tablet 100 mg PO QHS docusate sodium [Colace] 100 mg capsule 100 mg PO BID PRN (Reason: constipation) Qty: 30 0RF hydrocortisone acetate [Anusol-HC] 25 mg suppository 25 mg AR DAILY 14 Days Qty: 24 1RF Primary Care Provider: Jose Stubbs Referrals: Brown,Jose R, DO [Primary Care Provider] - 3-5 Days if not improving Activity Restrictions/Additional Instructions: Your labs, chest x-ray and EKG tonight were unremarkable. Follow-up with your primary care physician. Return if feeling a lot worse. We do not have a specific cause for your pain tonight. It does not appear to be cardiac in etiology at this time. Disposition Disposition: Home, Self Care
[2022-05-21] MEDS: Aspirin 81 MG TAB.CHEW 324 MG PO (02:19)
[2022-05-21 02:23] LABS: Absolute Lymphocyte Count 4.23 X10^3/uL (0.83-4.51); Absolute Neutrophil Count 5.1 X10^3/uL (2.0-7.7); Basophil# 0.04 X10^3/uL; Basophil% 0.4 % (0-1); Eosinophil# 0.06 X10^3/uL; Eosinophils% 0.6 % (0-5); Hematocrit 37.3 % (40-54); Hemoglobin 12.2 g/dL (13.0-16.5); Lymphocyte # 4.23 X10^3/ul (0.83-4.51); Mean Corp Hgb Conc 32.7 g/dL (32-36); Mean Corpuscular Hgb 31.9 pg (27.0-32.0); Mean Corpuscular Volume 97.6 fL (80-94); Mean Platelet Vol. 8.9 fl (6.2-12.0); Monocyte# 0.55 X10^3/uL; Monocyte% 5.5 % (0-10); NRBC Flagged by Analyzer 0 % (0-5); Neutrophil # 5.13 X10^3/uL (2.7-7.7); Neutrophil % 50.9 % (47-70); Platelet Count 379 K/mm3 (150-450); RBC Distribution Width CV 13.8 % (11.6-14.6); RBC Distribution Width SD 49.8 fl (35.1-43.9); Red Blood Count 3.82 M/mm3 (4.6-6.2); White Blood Count 10.1 K/mm3 (4.4-11.0)
--- NOTE | 2022-05-21 02:25 | RAD_ITS ---
INDICATION: chest pain EXAMINATION/TECHNIQUE: X-RAY - XR Chest 1 View COMPARISON: None. FINDINGS: LINES/DEVICES: None. LUNGS: No consolidation, edema or effusion. No pneumothorax. MEDIASTINUM AND CARDIOVASCULAR STRUCTURES: Cardiac silhouette not enlarged. Central airways and mediastinal contour are unremarkable. BONES AND SOFT TISSUES: Unremarkable. RAD/Chest 1 View (Portable) IMPRESSION: No radiographic evidence of acute cardiopulmonary disease. Electronically Signed: Stephanie Urias MD at 2:42 EDT ,
[2022-05-21 02:48] LABS: Anion Gap 5 (5-15); BUN 9 mg/dL (7-18); BUN/Creat Ratio 9.5 RATIO (10-20); Calcium,Total 9.4 mg/dL (8.5-10.1); Chloride 108 mmol/L (98-107); Creatinine, Serum 0.94 mg/dL (0.70-1.30); EST Glomerular Filtration Rate 87 mL/min (>60); Est Glom Filt Rate - Afr Amer 105 mL/min (>60); Estimated Creatinine Clearance 90.12 ml/min; Glucose 104 mg/dL (74-106); Potassium 4.1 mmol/L (3.5-5.1); Sodium Level 141 mmol/L (136-145); Troponin-I HS (w/2H Reflex) 64 pg/mL (3.0-78.0)
[2022-05-21 04:18] LABS: Reflex Troponin-HS? (from REC) Y
[2022-05-21 04:57] LABS: Troponin-I HS 57 pg/mL (3.0-78.0)
[2022-05-21 04:59] VITALS: BP 103/75; PULSE 54; RESP 16; O2SAT 99
== END 2022-05-21 08:21 | disposition home or self-care (01) ==
PROVIDERS: Emergency Provider Emergency Medicine; PCP Family Medicine; Visit Provider Emergency Medicine
DX: R07.9 Chest pain, unspecified (principal); I10 Essential (primary) hypertension; F12.90 Cannabis use, unspecified, uncomplicated; I25.10 Atherosclerotic heart disease of native coronary artery without angina pectoris; E78.5 Hyperlipidemia, unspecified; Z95.5 Presence of coronary angioplasty implant and graft; Z79.82 Long term (current) use of aspirin; Z79.899 Other long term (current) drug therapy; Z86.73 Personal history of transient ischemic attack (TIA), and cerebral infarction without residual deficits; Z87.891 Personal history of nicotine dependence
CPT/HCPCS: 36415; 71045; 80048; 84484; 85025; 93005; 99285; A4216

== ENCOUNTER 2022-06-08 13:17 | Emergency (ER) | payer MEDICAID, SELFPAY ==
[2022-06-08 13:19] VITALS: PULSE 75; RESP 18; TEMP 36.2; O2SAT 100; BMI 29.7
[2022-06-08 13:23] VITALS: BP 122/72
--- NOTE | 2022-06-08 13:34 | VDUE_ITS ---
Reason For Study: Pain Right Proximal Right jugular vein is spontaneous, widely patent, phasic, with no intraluminal echogenicity noted. Right subclavian vein is spontaneous, widely patent, phasic, with no intraluminal echogenicity noted. Right Lower Arm Right radial vein is compressible. Right ulnar vein is compressible. Right Arm Right axillary vein is spontaneous, patent, phasic, competent, compressible and demonstrates augmentation. Right brachial vein is compressible. Right cephalic vein is compressible. Right basilic vein is compressible. Patient Safety Preliminary report given to Dr. Carrasquillo. VL/Venous Duplex US, Unilateral Interpretation Summary No evidence for acute deep venous thrombosis[right] upper extremity with patent and compressible cephalic and basilic veins. Ordering Physician: Robles Carrasquillo Referring Physician: Loy Stubbs M.D. Performed By: Doreen Ramirez RVT ???
--- NOTE | 2022-06-08 13:35 | EX.ED.DYSGE1 ---
HPI History of Present Illness Chief Complaint: Wound Check Detail of Chief Complaint: Patient presents with complaint of not feeling well and right arm pain. Informant: patient Narrative Narrative: Patient presents with right arm pain and generally not feeling well. Patient states that he had a transfusion 3 days ago for iron and he felt pretty good the following day. Yesterday he just did not feel well. He felt some discomfort in his right arm and then as well as his left arm. Patient states that he has had some mild abdominal discomfort today. Patient states initially did the iron infusion in the left arm but after a few minutes that the switch to his right arm. Patient also complaining of some pain up into his right shoulder. He denies any significant chest pain. Patient states he really did not want to come in but his son made him come in and get evaluated. Patient has history of coronary artery disease, hypertension, high cholesterol, prior history of seizure and prior history of stroke. Patient has a cardiac stent. Prior similar symptoms: No PFSH PFSH Medical History CAD (coronary artery disease) Cannabis use disorder Hydradenitis Hyperlipidemia Hypertension Obesity Seizure Stroke Tobacco use Home Medications cholecalciferol (vitamin D3) 125 mcg (5,000 unit) capsule 10,000 unit DAILY 04/12/22 [History Last Taken Unknown] folic acid 1 mg tablet 1 mg PO DAILY #30 tabs 04/12/22 [Rx Last Taken Unknown] pyridoxine (vitamin B6) 100 mg tablet 100 mg PO DAILY #30 tabs 04/12/22 [Rx Last Taken Unknown] nystatin 100,000 unit/gram topical powder (Nyamyc) 100,000 unit topical DAILY 04/27/22 [History Last Taken Unknown] aspirin 81 mg chewable tablet 81 mg PO BREAKFAST #0 tabs 04/28/22 [Rx Last Taken Unknown] atorvastatin 40 mg tablet 40 mg PO DAILY #30 tabs 04/28/22 [Rx Last Taken Unknown] carvedilol 6.25 mg tablet 6.25 mg PO BID #60 tabs 04/28/22 [Rx Last Taken Unknown] clopidogrel 75 mg tablet 75 mg PO DAILY #30 tabs 04/28/22 [Rx Last Taken Unknown] levetiracetam 500 mg tablet 500 mg PO BID #60 tabs 04/28/22 [Rx Last Taken Unknown] nitroglycerin 0.4 mg sublingual tablet 0.4 mg sublingual PRN PRN CP #10 tabs 04/28/22 [Rx Last Taken Unknown] potassium chloride 20 mEq tablet,extended release(part/cryst) 20 meq PO DAILY #30 tabs 04/28/22 [Rx Last Taken Unknown] sulfamethoxazole 800 mg-trimethoprim 160 mg tablet (Bactrim DS) 1 tab PO BID #10 tabs 04/28/22 [Rx Last Taken Unknown] docusate sodium 100 mg capsule (Colace) 100 mg PO BID PRN constipation #30 caps 05/17/22 [Rx Last Taken Unknown] hydrocortisone acetate 25 mg rectal suppository (Anusol-HC) 25 mg ID DAILY 14 days #24 ea 05/17/22 [Rx Last Taken Unknown] quetiapine 100 mg tablet 100 mg PO QHS 05/17/22 [History Last Taken Unknown] trazodone 100 mg tablet 100 mg PO QHS 05/17/22 [History Last Taken Unknown] hydrocodone-acetaminophen 5-325mg 5mg-325mg 1 tab PO Q4H PRN PRN Pain 2 days #10 TABLETS 06/08/22 [Rx Last Taken Unknown] Allergy/AdvReac Type Severity Reaction Status Date / Time No Known Allergies Allergy Verified 06/08/22 13:19 Family History Mother Hypertension Diabetes Aunt Diabetes Surgical History H/O heart artery stent Hx of cholecystectomy Social History household members: family Smoking Status: Former smoker how long ago did patient quit smoking: Quit ~ 2 wks prior to presentation, intermittent Black & Milds since teen. alcohol intake: current alcohol intake frequency: holidays/special occasions only substance use type: marijuana ROS ROS ED Review of Systems ROS Unobtainable: other Constitutional Constitutional ED: Reports lethargy; Denies chills, fever(s), sweats or weight loss Eyes Eyes: Denies blurry vision, change in vision or diplopia ENT ENT ED: Denies rhinorrhea or sore throat Cardiovascular Cardiovascular: Denies chest pain, orthopnea or racing heartbeat Respiratory/Chest Respiratory/Chest: Denies cough, dyspnea, dyspnea on exertion, orthopnea or sputum Gastrointestinal Gastrointestinal: Reports abdominal pain; Denies diarrhea, nausea or vomiting Genitourinary Genitourinary ED: Denies dysuria, hematuria or urinary frequency Musculoskeletal Musculoskeletal: Reports other Details: Right and left arm pain ; Denies arthralgias, back pain, myalgias or neck pain Integumentary Denies abscess, Abrasions or rash Neurologic Neurologic: Denies headache(s) or weakness Psychiatric Psychiatric: Denies anxiety, depression or suicidal thoughts Endocrine Endocrinology: Denies polydipsia, polyphagia or polyuria Hematologic/Lymphatic Hematologic/Lymphatic: Denies easy bleeding, easy bruising or lymphadenopathy Allergic/Immunologic Allergic/Immunologic ED: Denies mouth swelling, tongue swelling or urticaria EXAM Physical Exam Const Vital Signs: 06/08/22 13:19 06/08/22 13:23 Temperature 97.1 F L Temperature Source Temporal Pulse Rate 75 Respiratory Rate 18 Blood Pressure 122/72 H Blood Pressure Mean 88 Pulse Ox 100 Oxygen Delivery Method Room Air Positive well nourished and well developed General Appearance ED: well developed and NAD HEENT Reports TM's clear and moist mucous membranes normocephalic and atraumatic; Negative for trauma or tenderness Tympanic Membrane ED: Yes TM's clear Eyes PERRL and EOMs intact bilaterally General Eye ED: Negative for pale conjunctiva or scleral icterus Neck no lymphadenopathy, supple and no JVD General: Negative for tenderness Chest Wall inspection of chest normal and palpation of chest normal Chest: Negative for tenderness Resp normal respiratory effort and clear to auscultation bilaterally Effort and Inspection: Negative for respiratory distress or pain with movement Auscultation: Negative for rhonchi, wheezes or diminished lung sounds Cardio regular rate, regular rhythm, S1 normal heart sound, S2 normal heart sound and no murmurs Peripheral Pulses: pulses 2+ throughout GI normal to inspection, nondistended, normoactive bowel sounds, soft to palpation, non-distended and no masses GI Narrative: Evaluation of the abdomen reveals mild diffuse tenderness in the upper abdomen. There is no rebound, rigidity, or peritoneal signs. No masses palpated. Back/Spine no CVA tenderness and no thoracic nor lumbar tenderness Extremity Extremity Narrative: Right arm-evaluation of the infusion site in the right antecubital does not reveal any evidence of extravasation. There are no masses palpated. There is no significant edema. He is neurovascular intact distally. General Extremety ED: Negative for edema General Extremity: Negative for edema Neuro oriented x3, CN's II-XII intact bilaterally, no sensory deficits noted and gait normal Sensorium / Orientation: awake, alert, oriented to person, oriented to place and oriented to time Motor Exam: strength 5/5 throughout and strength abnormal Psych mental status grossly normal Skin no rashes or lesions noted and no wounds MDM MDM MDM Narrative Medical decision making narrative: Patient presents with vague discomfort in the left arm and right arm since yesterday. He denies chest pain. He had some mild diffuse abdominal discomfort today. Patient's had prior cholecystectomy. He denies chest pain. He denies shortness of breath. Evaluation of the right arm reveals no evidence for infiltration or masses. He has good strength. Neurovascularly intact. No significant edema or cellulitic changes. We did obtain a venous Doppler of the upper extremity and was negative for DVT. CBC with differential obtained showed a normal white count of 9.0 hemoglobin of 12 and hematocrit of 36 with a platelet count of 222. Chemistries unremarkable. Troponin was normal. Patient received morphine and Zofran for pain. He did feel improved. I do not feel he is having acute coronary syndrome. Patient has had no trauma to his neck. Etiology of his pain is unclear. I will give him a prescription for few [place] for pain. He is advised to follow-up with his primary care physician 3 to 5 days. Lab Data Attestation: I reviewed the patient's lab results. Labs: Laboratory Results - last 24 hr 06/08/22 06/08/22 14:15 14:15 WBC 9.0 RBC 3.73 L Hgb 12.4 L Hct 36.4 L MCV 97.6 H MCH 33.2 H MCHC 34.1 RDW Std Deviation 51.6 H RDW Coeff of Subhash 14.3 Plt Count 222 MPV 9.6 Immature Gran % (Auto) 0.200 Neut % (Auto) 60.1 Lymph % (Auto) 31.4 Harrison % (Auto) 7.3 Eos % (Auto) 0.7 Baso % (Auto) 0.3 Absolute Neuts (auto) 5.4 Absolute Lymphs (auto) 2.84 Nucleated RBC % 0 Sodium 141 Potassium 3.7 Chloride 107 Carbon Dioxide 28.0 Anion Gap 6 BUN 10 Creatinine 0.99 Estim Creat Clear Calc 85.57 Est GFR (MDRD) Af Amer 99 Est GFR (MDRD) Non-Af 82 BUN/Creatinine Ratio 10.1 Glucose 80 Calcium 9.4 Troponin I High Sens 49 EKG Initial EKG: Attestation: I personally reviewed and interpreted this EKG as follows: Comments: Sinus rhythm with a rate of 58 bpm with no acute ST segment changes noted Discharge Plan Triage Chief Complaint: Wound Check ED Provider: Robles Carrasquillo Dx/Rx/DC Orders Clinical Impression: Arm pain, right Instructions: ED Pain, Acute, Uncertain Cause Prescriptions: New hydrocodone-acetaminophen [hydrocodone-acetaminophen] 5-325 mg tablet 1 tab PO Q4H PRN PRN (Reason: Pain) 2 Days Qty: 10 0RF No Action cholecalciferol (vitamin D3) 125 mcg (5,000 unit) capsule 10,000 unit DAILY Label Comments: take 2 capsules by mouth once daily folic acid 1 mg tablet 1 mg PO DAILY Qty: 30 0RF pyridoxine (vitamin B6) 100 mg tablet 100 mg PO DAILY Qty: 30 0RF nystatin [Nyamyc] 100,000 unit/gram powder 100,000 unit TOPICAL DAILY levetiracetam 500 mg Tablet 500 mg PO BID Qty: 60 0RF aspirin 81 mg Tablet,Chewable 81 mg PO BREAKFAST Qty: 0 0RF sulfamethoxazole-trimethoprim [Bactrim DS] 800-160 mg tablet 1 tab PO BID Qty: 10 0RF atorvastatin 40 mg tablet 40 mg PO DAILY Qty: 30 0RF carvedilol 6.25 mg tablet 6.25 mg PO BID Qty: 60 0RF Rx Instructions: must administer with a meal/food clopidogrel 75 mg tablet 75 mg PO DAILY Qty: 30 0RF potassium chloride 20 mEq tablet,ER particles/crystals 20 meq PO DAILY Qty: 30 0RF Label Comments: take 1 tablet by mouth once daily nitroglycerin 0.4 mg tablet, sublingual 0.4 mg sublingual PRN PRN (Reason: CP) Qty: 10 0RF quetiapine 100 mg Tablet 100 mg PO QHS trazodone 100 mg Tablet 100 mg PO QHS docusate sodium [Colace] 100 mg capsule 100 mg PO BID PRN (Reason: constipation) Qty: 30 0RF hydrocortisone acetate [Anusol-HC] 25 mg suppository 25 mg ID DAILY 14 Days Qty: 24 1RF Primary Care Provider: Jose Stubbs Referrals: Jose Stubbs, [Primary Care Provider] - 3-5 Days Disposition Disposition: Home, Self Care
[2022-06-08] MEDS: 0.9% Normal Saline 1,000 ML 150 ML IV (14:14)
[2022-06-08] MEDS: Morphine 4 MG/ML Syringe IV (14:15)
[2022-06-08] MEDS: Ondansetron 4 MG/2 ML Vial IV (14:15)
[2022-06-08 14:26] LABS: Absolute Lymphocyte Count 2.84 X10^3/uL (0.83-4.51); Absolute Neutrophil Count 5.4 X10^3/uL (2.0-7.7); Basophil# 0.03 X10^3/uL; Basophil% 0.3 % (0-1); Eosinophil# 0.06 X10^3/uL; Eosinophils% 0.7 % (0-5); Hematocrit 36.4 % (40-54); Hemoglobin 12.4 g/dL (13.0-16.5); Lymphocyte # 2.84 X10^3/ul (0.83-4.51); Lymphocyte % 31.4 % (19-41); Mean Corp Hgb Conc 34.1 g/dL (32-36); Mean Corpuscular Hgb 33.2 pg (27.0-32.0); Mean Corpuscular Volume 97.6 fL (80-94); Mean Platelet Vol. 9.6 fl (6.2-12.0); Monocyte# 0.66 X10^3/uL; Monocyte% 7.3 % (0-10); NRBC Flagged by Analyzer 0 % (0-5); Neutrophil # 5.43 X10^3/uL (2.7-7.7); Neutrophil % 60.1 % (47-70); Platelet Count 222 K/mm3 (150-450); RBC Distribution Width CV 14.3 % (11.6-14.6); RBC Distribution Width SD 51.6 fl (35.1-43.9); Red Blood Count 3.73 M/mm3 (4.6-6.2)
[2022-06-08 14:50] LABS: Anion Gap 6 (5-15); BUN 10 mg/dL (7-18); BUN/Creat Ratio 10.1 RATIO (10-20); Calcium,Total 9.4 mg/dL (8.5-10.1); Chloride 107 mmol/L (98-107); Creatinine, Serum 0.99 mg/dL (0.70-1.30); EST Glomerular Filtration Rate 82 mL/min (>60); Est Glom Filt Rate - Afr Amer 99 mL/min (>60); Estimated Creatinine Clearance 85.57 ml/min; Glucose 80 mg/dL (74-106); Potassium 3.7 mmol/L (3.5-5.1); Sodium Level 141 mmol/L (136-145); Troponin-I HS 49 pg/mL (3.0-78.0)
--- NOTE | 2022-06-08 16:07 | ED.RN ---
Addendum entered by Faye Boone 06/08/22 18:40: pt son updated on new eta of 2-3hrs. Original Note: PT SON UPDATED ON DC AND TRANSPORTATION SUPPOSE TO BE HERE AROUND 1720. ALL QUESTIONS ANSWERED. NO OTHER CONCERNS.
[2022-06-08 21:08] VITALS: BP 145/66; PULSE 69; RESP 16; O2SAT 97
== END 2022-06-08 21:09 | disposition home or self-care (01) ==
PROVIDERS: Emergency Provider Emergency Medicine; PCP Family Medicine; Visit Provider Emergency Medicine
DX: M79.601 Pain in right arm (principal); I25.10 Atherosclerotic heart disease of native coronary artery without angina pectoris; Z95.5 Presence of coronary angioplasty implant and graft; Z86.73 Personal history of transient ischemic attack (TIA), and cerebral infarction without residual deficits; Z87.891 Personal history of nicotine dependence
CPT/HCPCS: 80048; 84484; 85025; 93005; 93971; 96361; 96374; 96375; 99285; J7030; J2405

== ENCOUNTER 2022-08-21 18:16 | Observation (INO) | payer MEDICAID, SELFPAY ==
[2022-08-21] VITALS (8 sets, daily range): BP systolic 96–117; BP diastolic 59–65; PULSE 55–74; RESP 11–68; TEMP 36.2–36.6; O2SAT 95–100; BMI 28.8; BMI 28.7
--- NOTE | 2022-08-21 18:46 | EX.ED.DYSGE1 ---
HPI <CAROLINE Stephenson - Last Filed: 08/21/22 21:14> History of Present Illness Chief Complaint: Alt LOC Narrative Narrative: Patient presenting today after syncopal episode that occurred at home this evening. He reports that he began to feel diaphoretic, short of breath, and had left-sided chest pain that radiates into his left arm and left shoulder. He then passed out and is unsure how long he was unconscious for. Son gave him a nitro tablet when he became conscious. He reports his systolic blood pressure was in the 70s when EMS checked. He reports he still has chest pain, although it has significantly diminished. He reports he has had 3 stents placed and is on Plavix, history of stroke. He no longer feels short of breath. He denies any fever, chills, recent illness, abdominal pain, nausea, and vomiting. PFSH <CAROLINE Stephenson - Last Filed: 08/21/22 21:14> PFSH Medical History CAD (coronary artery disease) Cannabis use disorder Hydradenitis Hyperlipidemia Hypertension Obesity Seizure Stroke Tobacco use Home Medications cholecalciferol (vitamin D3) 125 mcg (5,000 unit) capsule 10,000 unit DAILY 04/12/22 [History Last Taken Unknown] folic acid 1 mg tablet 1 mg PO DAILY #30 tabs 04/12/22 [Rx Last Taken Unknown] pyridoxine (vitamin B6) 100 mg tablet 100 mg PO DAILY #30 tabs 04/12/22 [Rx Last Taken Unknown] nystatin 100,000 unit/gram topical powder (Nyamyc) 100,000 unit topical DAILY 04/27/22 [History Last Taken Unknown] aspirin 81 mg chewable tablet 81 mg PO BREAKFAST #0 tabs 04/28/22 [Rx Last Taken Unknown] atorvastatin 40 mg tablet 40 mg PO DAILY #30 tabs 04/28/22 [Rx Last Taken Unknown] carvedilol 6.25 mg tablet 6.25 mg PO BID #60 tabs 04/28/22 [Rx Last Taken Unknown] clopidogrel 75 mg tablet 75 mg PO DAILY #30 tabs 04/28/22 [Rx Last Taken Unknown] levetiracetam 500 mg tablet 500 mg PO BID #60 tabs 04/28/22 [Rx Last Taken Unknown] nitroglycerin 0.4 mg sublingual tablet 0.4 mg sublingual PRN PRN CP #10 tabs 04/28/22 [Rx Last Taken Unknown] potassium chloride 20 mEq tablet,extended release(part/cryst) 20 meq PO DAILY #30 tabs 04/28/22 [Rx Last Taken Unknown] sulfamethoxazole 800 mg-trimethoprim 160 mg tablet (Bactrim DS) 1 tab PO BID #10 tabs 04/28/22 [Rx Last Taken Unknown] docusate sodium 100 mg capsule (Colace) 100 mg PO BID PRN constipation #30 caps 05/17/22 [Rx Last Taken Unknown] hydrocortisone acetate 25 mg rectal suppository (Anusol-HC) 25 mg VT DAILY 14 days #24 ea 05/17/22 [Rx Last Taken Unknown] quetiapine 100 mg tablet 100 mg PO QHS 05/17/22 [History Last Taken Unknown] trazodone 100 mg tablet 100 mg PO QHS 05/17/22 [History Last Taken Unknown] hydrocodone-acetaminophen 5-325mg 5mg-325mg 1 tab PO Q4H PRN PRN Pain 2 days #10 TABLETS 06/08/22 [Rx Last Taken Unknown] Allergy/AdvReac Type Severity Reaction Status Date / Time No Known Allergies Allergy Verified 06/08/22 13:19 Family History Mother Hypertension Diabetes Aunt Diabetes Surgical History H/O heart artery stent Hx of cholecystectomy Social History household members: family Smoking Status: Former smoker how long ago did patient quit smoking: Quit ~ 2 wks prior to presentation, intermittent Black & Milds since teen. alcohol intake: current alcohol intake frequency: holidays/special occasions only substance use type: marijuana ROS <CAROLINE Stephenson - Last Filed: 08/21/22 21:14> ROS ED Constitutional Constitutional ED: Denies chills or fever(s) Eyes Eyes: Denies change in vision Cardiovascular Cardiovascular: Reports chest pain; Denies palpitations Respiratory/Chest Respiratory/Chest: Denies cough or dyspnea Gastrointestinal Gastrointestinal: Denies abdominal pain, nausea or vomiting Genitourinary Genitourinary ED: Denies dysuria, hematuria or urinary urgency Musculoskeletal Musculoskeletal: Denies arthralgias, back pain or myalgias Integumentary Denies rash Neurologic Neurologic: Denies confusion or weakness EXAM <CAROLINE Stephenson - Last Filed: 08/21/22 21:14> Physical Exam Const Vital Signs: 08/21/22 18:17 08/21/22 18:34 08/21/22 19:16 Temperature 97.2 F L 97.1 F L Temperature Source Temporal Oral Pulse Rate 74 66 55 L Respiratory Rate 16 68 H 16 Blood Pressure 96/62 98/65 99/59 L Blood Pressure Mean 73 76 72 Pulse Ox 95 96 100 Oxygen Delivery Method Room Air Room Air Room Air 08/21/22 19:48 08/21/22 20:00 08/21/22 21:00 Temperature Temperature Source Pulse Rate 60 58 L 62 Respiratory Rate 13 11 L 16 Blood Pressure 110/61 109/64 117/65 Blood Pressure Mean 77 79 82 Pulse Ox 100 100 100 Oxygen Delivery Method Room Air Room Air Room Air 08/21/22 21:15 Temperature 97.9 F Temperature Source Temporal Pulse Rate 60 Respiratory Rate 11 L Blood Pressure 111/63 Blood Pressure Mean 79 Pulse Ox 98 Oxygen Delivery Method Room Air Positive well nourished, well developed and no apparent distress General Appearance ED: well developed HEENT Reports normocephalic and head/scalp atraumatic Mouth ED: Yes moist mucous membranes normal Eyes PERRL and EOMs intact bilaterally Neck full ROM and supple Chest Wall inspection of chest normal Resp normal respiratory effort and clear to auscultation bilaterally Cardio regular rate and regular rhythm GI soft to palpation, non-tender, non-distended and no masses Back/Spine normal ROM and normal to inspection Extremity normal to inspection and full ROM Neuro oriented x3, CN's II-XII intact bilaterally, moves all extremities, no focal motor deficits and no sensory deficits noted Sensorium / Orientation: awake and alert Psych mental status grossly normal and thought process normal Skin no rashes or lesions noted and no wounds <Dr. Angelo Esqueda DO - Last Filed: 08/21/22 22:18> Physical Exam Const Vital Signs: 08/21/22 18:17 08/21/22 18:34 08/21/22 19:16 Temperature 97.2 F L 97.1 F L Temperature Source Temporal Oral Pulse Rate 74 66 55 L Respiratory Rate 16 68 H 16 Blood Pressure 96/62 98/65 99/59 L Blood Pressure Mean 73 76 72 Pulse Ox 95 96 100 Oxygen Delivery Method Room Air Room Air Room Air 08/21/22 19:48 08/21/22 20:00 08/21/22 21:00 Temperature Temperature Source Pulse Rate 60 58 L 62 Respiratory Rate 13 11 L 16 Blood Pressure 110/61 109/64 117/65 Blood Pressure Mean 77 79 82 Pulse Ox 100 100 100 Oxygen Delivery Method Room Air Room Air Room Air 08/21/22 21:15 Temperature 97.9 F Temperature Source Temporal Pulse Rate 60 Respiratory Rate 11 L Blood Pressure 111/63 Blood Pressure Mean 79 Pulse Ox 98 Oxygen Delivery Method Room Air [facility] <CAROLINE Stephenson - Last Filed: 08/21/22 21:14> [facility] Narrative Medical decision making narrative: Patient presenting today after syncopal episode that occurred this evening. He is unsure how long he was unconscious for or if he hit his head. He reports left-sided chest pain that radiates into his left shoulder and left arm that was severe when he had the syncopal episode but has diminished. He felt short of breath before the episode but no longer feels that way. He is well-appearing and in no acute distress. He is hypotensive at 96/62. He will be given IV fluids. Labs will be obtained to rule out leukocytosis, anemia, lecture abnormality, SARIKA, ACS. Chest x-ray obtained to rule out infiltrate, pneumothorax, and other cardiopulmonary abnormality and is negative. Anemia slightly decreased from previous visit, he is hypokalemic. He will be given potassium replacement here. Head CT will be obtained to rule out intracranial bleed since he fell and we are unsure if he hit his head or not and is negative for any acute findings. Initial troponin WNL, repeat pending. Given patient's cardiac history, he was discussed with the hospitalist and will be admitted in stable condition for further evaluation. He is comfortable with plan. Lab Data Attestation: I reviewed the patient's lab results. Lab results narrative: H&H 11.4 and 34.6, slightly decreased from visit in June. Potassium 3.3, BUN 6. Labs: Laboratory Results - last 24 hr 08/21/22 08/21/22 08/21/22 19:18 19:18 21:18 WBC 8.6 RBC 3.52 L Hgb 11.4 L Hct 34.6 L MCV 98.3 H MCH 32.4 H MCHC 32.9 RDW Std Deviation 47.8 H RDW Coeff of Subhash 13.4 Plt Count 223 MPV 9.8 Immature Gran % (Auto) 0.500 Neut % (Auto) 57.9 Lymph % (Auto) 34.6 [place] % (Auto) 6.1 Eos % (Auto) 0.7 Baso % (Auto) 0.2 Absolute Neuts (auto) 5.0 Absolute Lymphs (auto) 2.96 Nucleated RBC % 0 Sodium 143 Potassium 3.3 L Chloride 110 H Carbon Dioxide 28.0 Anion Gap 5 BUN 6 L Creatinine 0.90 Estim Creat Clear Calc 92.96 Est GFR (MDRD) Af Amer 111 Est GFR (MDRD) Non-Af 92 BUN/Creatinine Ratio 6.7 L Glucose 85 Calcium 8.7 Troponin I High Sens 55 54 Radiography X-Ray: Read by ED Physician and Read by Radiologist Diagnostic Testing: Clinical Impression(s) from Imaging Studies Brain CT 08/21/22 18:51 IMPRESSION: No evidence of acute intracranial calvarial abnormality. No major interval change. If there is continued clinical concern, MRI is recommended. [facility] was utilized to assist in identifying pertinent positive findings in this case. Electronically Signed: Trevon Martínez DO at 20:06 EDT Reading Location ID and State: [facility] / [place] Tel [phone], Service support , Chest X-Ray 08/21/22 19:36 IMPRESSION: No acute cardiopulmonary disease or interval change Electronically Signed: Trevon Martínez DO at 20:06 EDT Reading Location ID and State: [facility] / [place] Tel [phone], Service support , EKG Initial EKG: Comments: 63 bpm, normal sinus rhythm, no ST elevation <Dr. Angelo Esqueda, - Last Filed: 08/21/22 22:18> [facility] Narrative Medical decision making narrative: Patient presenting today after syncopal episode that occurred this evening. He is unsure how long he was unconscious for or if he hit his head. He reports left-sided chest pain that radiates into his left shoulder and left arm that was severe when he had the syncopal episode but has diminished. He felt short of breath before the episode but no longer feels that way. He is well-appearing and in no acute distress. He is hypotensive at 96/62. He will be given IV fluids. Labs will be obtained to rule out leukocytosis, anemia, lecture abnormality, SARIKA, ACS. Chest x-ray obtained to rule out infiltrate, pneumothorax, and other cardiopulmonary abnormality and is negative. Anemia slightly decreased from previous visit, he is hypokalemic. He will be given potassium replacement here. Head CT will be obtained to rule out intracranial bleed since he fell and we are unsure if he hit his head or not and is negative for any acute findings. Initial troponin WNL, repeat pending. Given patient's cardiac history, he was discussed with the hospitalist and will be admitted in stable condition for further evaluation. He is comfortable with plan. This patient was seen with a PA/MAT[employer] HAND[employer] WAREHOU[employer] SUPERVISOR Individually assessed they patient including history and physical. I have reviewed everything on the chart that is available and agree with the documentation provided by the PA/MAT[employer] HAND[employer]ING WAREHOU[employer] SUPERVISOR including discussion about the assessment, treatment plan, discussion, and return precautions. Patient with an episode of syncope after having chest pain and shortness of breath. He is unable to describe anything after the fall. He is noted to be a little hypotensive on arrival. He was also noted to be in the 70s systolically just after the event when EMS picked him up however his son had placed a nitroglycerin in his mouth which makes this unclear. His work-up ultimately is normal. His potassium slight low at 3.3. His EKG does not show any new changes on my interpretation. Given his medical history I feel would be warranted to keep him in the hospital for observation. Patient is amenable to this. In addition to previous discussion it is possible he had a seizure today as he has a history of seizure disorder and is on Keppra for this. This is all discussed with the hospitalist he will be admitted for monitoring. Impression: 1. Chest pain 2. Syncope Lab Data Labs: Laboratory Results - last 24 hr 08/21/22 08/21/22 08/21/22 19:18 19:18 21:18 WBC 8.6 RBC 3.52 L Hgb 11.4 L Hct 34.6 L MCV 98.3 H MCH 32.4 H MCHC 32.9 RDW Std Deviation 47.8 H RDW Coeff of Subhash 13.4 Plt Count 223 MPV 9.8 Immature Gran % (Auto) 0.500 Neut % (Auto) 57.9 Lymph % (Auto) 34.6 [place] % (Auto) 6.1 Eos % (Auto) 0.7 Baso % (Auto) 0.2 Absolute Neuts (auto) 5.0 Absolute Lymphs (auto) 2.96 Nucleated RBC % 0 Sodium 143 Potassium 3.3 L Chloride 110 H Carbon Dioxide 28.0 Anion Gap 5 BUN 6 L Creatinine 0.90 Estim Creat Clear Calc 92.96 Est GFR (MDRD) Af Amer 111 Est GFR (MDRD) Non-Af 92 BUN/Creatinine Ratio 6.7 L Glucose 85 Calcium 8.7 Troponin I High Sens 55 54 Radiography Diagnostic Testing: Clinical Impression(s) from Imaging Studies Brain CT 08/21/22 18:51 IMPRESSION: No evidence of acute intracranial calvarial abnormality. No major interval change. If there is continued clinical concern, MRI is recommended. [facility] was utilized to assist in identifying pertinent positive findings in this case. Electronically Signed: Trevon Martínez DO at 20:06 EDT Reading Location ID and State: [facility] / [place] Tel [phone], Service support , Chest X-Ray 08/21/22 19:36 IMPRESSION: No acute cardiopulmonary disease or interval change Electronically Signed: Trevon Martínez DO at 20:06 EDT Reading Location ID and State: [facility] / [place] Tel [phone], Service support , Discharge Plan Triage Chief Complaint: Alt LOC ED Midlevel Provider: Suellen Mccoy ED Provider: Angelo Esqueda Dx/Rx/DC Orders Primary Care Provider: Jose Stubbs
--- NOTE | 2022-08-21 18:51 | CT_ITS ---
STUDY: CT BRAIN WITHOUT CONTRAST REASON FOR EXAM: Male, 62 years old. Fall. Found unresponsive by family. History of prior stroke and seizures. Hypertension. Patient on anticoagulants. RADIATION DOSAGE (If Supplied By Facility): CTDIvol = ( 44.99 ) mGy, DLP = ( 880.47 ) mGycm TECHNIQUE: Transaxial CT imaging of the brain was performed without administration of intravenous contrast material. Individualized dose optimization techniques were used for this CT. COMPARISON: April 27, 2022. FINDINGS: Normal soft tissue structures. Normal calvarium. Normal size ventricles and extra-axial spaces for the patient''s age. Normal white matter tracts of the cerebral hemispheres. Normal basal ganglia and thalami. Normal brainstem. Normal cerebellum. There is no intracranial hemorrhage. There are no findings of an acute ischemic infarction. Normal visualized paranasal sinuses. CT/Brain/Head without Contrast IMPRESSION: No evidence of acute intracranial calvarial abnormality. No major interval change. If there is continued clinical concern, MRI is recommended. [facility] was utilized to assist in identifying pertinent positive findings in this case. Electronically Signed: Trevon Martínez DO at 20:06 EDT Reading Location ID and State: [address] [place] [address] Tel [phone], Service support ,
[2022-08-21] MEDS: 0.9% Normal Saline 1,000 ML 1000 ML IV (19:18)
[2022-08-21 19:31] LABS: Absolute Lymphocyte Count 2.96 X10^3/uL (0.83-4.51); Basophil# 0.02 X10^3/uL; Basophil% 0.2 % (0-1); Eosinophil# 0.06 X10^3/uL; Eosinophils% 0.7 % (0-5); Hematocrit 34.6 % (40-54); Hemoglobin 11.4 g/dL (13.0-16.5); Lymphocyte # 2.96 X10^3/ul (0.83-4.51); Lymphocyte % 34.6 % (19-41); Mean Corp Hgb Conc 32.9 g/dL (32-36); Mean Corpuscular Hgb 32.4 pg (27.0-32.0); Mean Corpuscular Volume 98.3 fL (80-94); Mean Platelet Vol. 9.8 fl (6.2-12.0); Monocyte# 0.52 X10^3/uL; Monocyte% 6.1 % (0-10); NRBC Flagged by Analyzer 0 % (0-5); Neutrophil # 4.95 X10^3/uL (2.7-7.7); Neutrophil % 57.9 % (47-70); Platelet Count 223 K/mm3 (150-450); RBC Distribution Width CV 13.4 % (11.6-14.6); RBC Distribution Width SD 47.8 fl (35.1-43.9); Red Blood Count 3.52 M/mm3 (4.6-6.2); White Blood Count 8.6 K/mm3 (4.4-11.0)
--- NOTE | 2022-08-21 19:36 | RAD_ITS ---
STUDY: X-RAY CHEST REASON FOR EXAM: Male, 62 years old. Unresponsive. TECHNIQUE: Single AP portable view of the chest. COMPARISON: May 21, 2022. FINDINGS: The lungs are clear and expanded. There is no demonstrated pleural abnormality. Normal size heart. Normal mediastinum and amanuel. Normal visualized pulmonary arteries. Normal visualized aortic arch and descending thoracic aorta. Normal visualized thoracic spine. Normal visualized ribs, clavicles, and shoulders. There is no demonstrated abnormality of the visualized soft tissue structures of the upper abdomen. RAD/Chest 1 View (Portable) IMPRESSION: No acute cardiopulmonary disease or interval change Electronically Signed: Trevon Martínez DO at 20:06 EDT ,
[2022-08-21 19:49] LABS: Anion Gap 5 (5-15); BUN 6 mg/dL (7-18); BUN/Creat Ratio 6.7 RATIO (10-20); Calcium,Total 8.7 mg/dL (8.5-10.1); Chloride 110 mmol/L (98-107); EST Glomerular Filtration Rate 92 mL/min (>60); Est Glom Filt Rate - Afr Amer 111 mL/min (>60); Estimated Creatinine Clearance 92.96 ml/min; Glucose 85 mg/dL (74-106); Potassium 3.3 mmol/L (3.5-5.1); Sodium Level 143 mmol/L (136-145); Troponin-I HS (w/2H Reflex) 55 pg/mL (3.0-78.0)
[2022-08-21 21:29] LABS: Reflex Troponin-HS? (from REC) Y
--- NOTE | 2022-08-21 21:58 | HP.PCM.HOS_ITS ---
HPI - General General Date of Admission: 08/21/22 Date of Service: 08/21/22 Chief Complaint: Syncopal episode, chest pain HPI Narrative IDA NEWTON, is a 62 M who presents to the emergency room at [facility] after being found unresponsive at home by his son, patient placed nitro tablet in the patient's mouth, patient woke up and complained of chest pain. Medical information is not able to be obtained from the patient due to his lack of willingness to discuss issues with him, he answers with 1 or 2 word answers to most things. According the patient's medical record, he has a history of seizure disorder, coronary artery disease with stent placement, hypertension, hyperlipidemia, and history of stroke. Work-up in the emergency room included an EKG which showed normal sinus rhythm without evidence of ischemic changes, patient's CBC was remarkable for hemoglobin of 11.4, chemistry panel was remarkable for a potassium of 3.3, chest x-ray showed no acute cardiopulmonary disease, CAT scan of the brain was unremarkable. Patient's troponin was 55. Patient will be placed in observation status on PCU for chest pain and syncopal episode, cardiac enzymes will be cycled, if the enzymes remain normal he can undergo a resting stress test tomorrow. Patient had been hospitalized here at [facility] in April of this year, it was recommended at that time due to complaints of chest pain that he undergo a stress test but he declined at that time. Echocardiogram performed at that time showed an EF of 55%. PFSH Medical History CAD (coronary artery disease) Cannabis use disorder Hydradenitis Hyperlipidemia Hypertension Obesity Seizure Stroke Tobacco use Home Medications cholecalciferol (vitamin D3) 125 mcg (5,000 unit) capsule 10,000 unit DAILY 04/12/22 [History Last Taken Unknown] folic acid 1 mg tablet 1 mg PO DAILY #30 tabs 04/12/22 [Rx Last Taken Unknown] pyridoxine (vitamin B6) 100 mg tablet 100 mg PO DAILY #30 tabs 04/12/22 [Rx Last Taken Unknown] nystatin 100,000 unit/gram topical powder (Nyamyc) 100,000 unit topical DAILY 04/27/22 [History Last Taken Unknown] aspirin 81 mg chewable tablet 81 mg PO BREAKFAST #0 tabs 04/28/22 [Rx Last Taken Unknown] atorvastatin 40 mg tablet 40 mg PO DAILY #30 tabs 04/28/22 [Rx Last Taken Unknown] carvedilol 6.25 mg tablet 6.25 mg PO BID #60 tabs 04/28/22 [Rx Last Taken Unknown] clopidogrel 75 mg tablet 75 mg PO DAILY #30 tabs 04/28/22 [Rx Last Taken Unknown] levetiracetam 500 mg tablet 500 mg PO BID #60 tabs 04/28/22 [Rx Last Taken Unknown] nitroglycerin 0.4 mg sublingual tablet 0.4 mg sublingual PRN PRN CP #10 tabs 04/28/22 [Rx Last Taken Unknown] potassium chloride 20 mEq tablet,extended release(part/cryst) 20 meq PO DAILY #30 tabs 04/28/22 [Rx Last Taken Unknown] sulfamethoxazole 800 mg-trimethoprim 160 mg tablet (Bactrim DS) 1 tab PO BID #10 tabs 04/28/22 [Rx Last Taken Unknown] docusate sodium 100 mg capsule (Colace) 100 mg PO BID PRN constipation #30 caps 05/17/22 [Rx Last Taken Unknown] hydrocortisone acetate 25 mg rectal suppository (Anusol-HC) 25 mg MN DAILY 14 days #24 ea 05/17/22 [Rx Last Taken Unknown] quetiapine 100 mg tablet 100 mg PO QHS 05/17/22 [History Last Taken Unknown] trazodone 100 mg tablet 100 mg PO QHS 05/17/22 [History Last Taken Unknown] hydrocodone-acetaminophen 5-325mg 5mg-325mg 1 tab PO Q4H PRN PRN Pain 2 days #10 TABLETS 06/08/22 [Rx Last Taken Unknown] Allergy/AdvReac Type Severity Reaction Status Date / Time No Known Allergies Allergy Verified 06/08/22 13:19 Family History Mother Hypertension Diabetes Aunt Diabetes Surgical History H/O heart artery stent Hx of cholecystectomy Social History household members: family Smoking Status: Former smoker how long ago did patient quit smoking: Quit ~ 2 wks prior to presentation, intermittent Black & Milds since teen. alcohol intake: current alcohol intake frequency: holidays/special occasions only substance use type: marijuana ROS ROS Narrative Review of systems was unable to be obtained from the patient due to his lack of willingness to carry on conversation with this examiner. He answers some questions with a simple yes or no. Vital Signs Vital Signs Vital Signs: 08/21/22 18:17 08/21/22 18:34 08/21/22 19:16 Temperature 97.2 F L 97.1 F L Temperature Source Temporal Oral Pulse Rate 74 66 55 L Respiratory Rate 16 68 H 16 Blood Pressure 96/62 98/65 99/59 L Blood Pressure Mean 73 76 72 Pulse Ox 95 96 100 Oxygen Delivery Method Room Air Room Air Room Air 08/21/22 19:48 08/21/22 20:00 08/21/22 21:00 Temperature Temperature Source Pulse Rate 60 58 L 62 Respiratory Rate 13 11 L 16 Blood Pressure 110/61 109/64 117/65 Blood Pressure Mean 77 79 82 Pulse Ox 100 100 100 Oxygen Delivery Method Room Air Room Air Room Air 08/21/22 21:15 Temperature 97.9 F Temperature Source Temporal Pulse Rate 60 Respiratory Rate 11 L Blood Pressure 111/63 Blood Pressure Mean 79 Pulse Ox 98 Oxygen Delivery Method Room Air Weight Weight: 93.8 kg Body Mass Index (BMI) 28.8 Physical Exam Const no apparent distress Constitutional Narrative: Patient appears somnolent, he answers some questions with a yes or no answer General Appearance: cooperative, well kempt and well developed HEENT normocephalic, hearing grossly normal bilaterally and moist oral mucous membranes Eyes PERRL, EOMs intact bilaterally and conjunctivae normal Neck supple, no JVD, thyroid normal and no carotid bruits General: trachea midline Resp normal respiratory effort, no retractions, no use of accessory muscles and clear to auscultation bilaterally Auscultation: Negative for rales, rhonchi or wheezes Cardio regular rate, regular rhythm, S1 normal heart sound, S2 normal heart sound, no murmurs, no rub and no gallops GI normal to inspection, nondistended, normoactive bowel sounds, soft to palpation, non-tender and non-distended Extremity no clubbing, cyanosis or edema Skin no rashes or lesions noted General Skin Exam: no breakdown Neuro oriented x3, CN's II-XII intact bilaterally, moves all extremities, no focal motor deficits and no sensory deficits noted Sensorium / Orientation: awake, alert, oriented to person and oriented to place Speech: speech normal Psych Psych Narrative: Patient has a flat affect, he does not engage in conversation with this examiner except for a few short sentences Results Lab / Micro Data Result Diagrams: 08/21/22 19:18 08/21/22 19:18 Labs: Laboratory Results - last 24 hr 08/21/22 19:18: WBC 8.6, RBC 3.52 L, Hgb 11.4 L, Hct 34.6 L, MCV 98.3 H, MCH 32.4 H, MCHC 32.9, RDW Std Deviation 47.8 H, RDW Coeff of Subhash 13.4, Plt Count 223, MPV 9.8, Immature Gran % (Auto) 0.500, Neut % (Auto) 57.9, Lymph % (Auto) 34.6, [place] % (Auto) 6.1, Eos % (Auto) 0.7, Baso % (Auto) 0.2, Absolute Neuts (auto) 5.0, Absolute Lymphs (auto) 2.96, Nucleated RBC % 0 08/21/22 19:18: Sodium 143, Potassium 3.3 L, Chloride 110 H, Carbon Dioxide 28.0, Anion Gap 5, BUN 6 L, Creatinine 0.90, Estim Creat Clear Calc 92.96, Est GFR (MDRD) Af Amer 111, Est GFR (MDRD) Non-Af 92, BUN/Creatinine Ratio 6.7 L, Glucose 85, Calcium 8.7, Troponin I High Sens [address] 08/21/22 18:51 IMPRESSION: No evidence of acute intracranial calvarial abnormality. No major interval change. If there is continued clinical concern, MRI is recommended. AIDOC was utilized to assist in identifying pertinent positive findings in this case. Electronically Signed: Trevon Martínez DO at 20:06 EDT Reading Location ID and State: [facility] / [place] Tel [phone], Service support , Chest X-Ray 08/21/22 19:36 IMPRESSION: No acute cardiopulmonary disease or interval change Electronically Signed: Trevon Martínez DO at 20:06 EDT Reading Location ID and State: [facility] / [place] Tel [phone], Service support , Assessment & Plan Assessment/Plan (1) Syncope: PLAN: Plan 1. Syncope-etiology unclear at this point, patient will be placed into obs ervation status on PCU, he will be monitored #2 chest pain-patient complained of chest pain at home, he has no complaints in the emergency room of any chest pain, cardiac enzymes will be cycled, he will be set up for a resting stress test tomorrow if his enzymes remain normal. #3 seizure disorder-patient will remain on his home medication #4 coronary artery disease by history-according to the patient's medical record, he has a history of coronary artery disease with stent placement, I could not get any information from the patient concerning this past history. #5 essential hypertension-patient will remain on his current medication Total clinical time spent by myself addressing the patient's medical issues, reviewing all of his data, and collaborating with patient's care team: 55 minut es Charges/Coding Visit Charges Inpatient E&M: 74349 Init Hosp L2
[2022-08-21 22:01] LABS: Troponin-I HS 54 pg/mL (3.0-78.0)
[2022-08-21] MEDS: Potassium Chloride Oral Tablet 20 MEQ 40 MEQ PO (23:25)
[2022-08-22] MEDS: traZODone 100 MG Tablet PO (01:38)
[2022-08-22 02:24] LABS: Anion Gap 5 (5-15); BUN 6 mg/dL (7-18); Calcium,Total 8.5 mg/dL (8.5-10.1); Chloride 112 mmol/L (98-107); Creatinine, Serum 0.75 mg/dL (0.70-1.30); EST Glomerular Filtration Rate 113 mL/min (>60); Est Glom Filt Rate - Afr Amer 136 mL/min (>60); Estimated Creatinine Clearance 111.56 ml/min; Glucose 109 mg/dL (74-106); Potassium 3.7 mmol/L (3.5-5.1); Sodium Level 144 mmol/L (136-145)
[2022-08-22 02:29] LABS: Troponin-I HS 50 pg/mL (3.0-78.0)
[2022-08-22 04:19] VITALS: BP 110/66; PULSE 70; RESP 18; TEMP 36.1; O2SAT 99
[2022-08-22] MEDS: Clopidogrel Bisulfate 75 MG Tablet PO (06:42)
[2022-08-22] MEDS: Aspirin 81 MG TAB.CHEW PO (06:42)
--- NOTE | 2022-08-22 09:36 | ECHOLC_ITS ---
Reason For Study: Syncope Procedure This was a limited 2D transthoracic echocardiogram. The study was technically difficult. Limited views were obtained. Contrast injection was performed. Exam performed in department. Left Ventricle Moderately dilated left ventricle. The left ventricular ejection fraction is 40 %. Unable to assess diastolic function based on available data. Inferior hypokinesis. Right Ventricle Normal right ventricle. Atria The left and right atria are normal. Mitral Valve Mild diffuse mitral valve thickening. Mild (1+) mitral valve insufficiency. Tricuspid Valve The tricuspid valve is not well visualized. Aortic Valve Aortic sclerosis, no stenosis. Mild (1+) aortic valve insufficiency. Pulmonic Valve The pulmonic valve is not well visualized. Great Vessels Normal sized aortic root. Medication Diluted definity 2ml given slow IV push to enhance endocardial definition. MMode/2D Measurements & Calculations LVIDd: 5.7 cm IVSd: 1.1 cm LA dimension: 3.1 cm LVIDs: 4.5 cm LVPWd: 1.1 cm RVDd: 3.8 cm FS: 21.8 % LVAd ap4: 49.1 cm2 SV(MOD-sp4): 122.0 ml SV(sp4-el): 123.8 ml LVLd ap4: 8.8 cm EDV(MOD-sp4): 229.0 ml EDV(sp4-el): 234.0 ml LVAs ap4: 29.1 cm2 LVLs ap4: 6.5 cm ESV(MOD-sp4): 106.9 ml ESV(sp4-el): 110.2 ml EF(MOD-sp4): 53.3 % EF(sp4-el): 52.9 % Doppler Measurements & Calculations Ao V2 max: 135.9 cm/sec LV V1 max: 99.9 cm/sec Ao max P.4 mmHg LV V1 max P.0 mmHg Ao V2 mean: 96.9 cm/sec LV V1 mean P.1 mmHg Ao mean P.3 mmHg LV V1 mean: 69.1 cm/sec Ao V2 VTI: 36.9 cm LV V1 VTI: 23.1 cm AV (velocity ratio): 0.63 ECHO/Echo Limited w/Contrast Interpretation Summary The left ventricular ejection fraction is 40 %. Moderately dilated left ventricle. Mild (1+) mitral valve insufficiency. Aortic sclerosis, no stenosis. The study was technically difficult. Ordering Physician: Toma Fong Referring Physician: Loy Stubbs M.D. Performed By: James Sharma RCS
[2022-08-22 11:22] VITALS: BP 127/88; PULSE 61; RESP 16; TEMP 36.3; O2SAT 100
[2022-08-22] MEDS: levETIRAcetam 500 MG Tablet PO ×2 (11:26→22:12)
--- NOTE | 2022-08-22 12:10 | STRESSREP_ITS ---
Stress Test Report Date: 08/22/2022 Procedure: Pharmacologic stress nuclear imaging study Indications: Chest pain Consent: Per the patient Procedure: The patient underwent pharmacologic (Regadenoson 0.4mg ) evaluation with a peak heart rate of 78 beats per minute (48%predicted maximal heart rate) and a peak blood pressure of 122/70 mmHg. The baseline ECG demonstrated normal sinus rhythm. Inferior ST changes noted. The peak pharmacologic ECG was nondiagnostic because of baseline changes. [There were no cardiac dysrhythmias pretest, during pharmacologic infusion, or recovery]. [There was no complaint of chest discomfort during pharmacologic infusion or recovery]. The patient was injected with 11.1 millicuries of technetium 99m Cardiolite and subsequently rest SPECT Cardiolite nuclear imaging was obtained in the horizontal long, vertical long, and short axis views. The patient underwent pharmacologic (Regadenoson) evaluation. The patient was injected with 34.9 millicuries of technetium 99m Cardiolite and subsequently stress SPECT Cardiolite nuclear imaging was obtained in the horizontal long, vertical long, and short axis views. A gated Cardiolite study at peak stress was obtained. The examination was stopped secondary to completion of protocol. Rest and stress SPECT Cardiolite nuclear imaging status post realignment, no rmalization, and attenuation correction demonstrate no fixed or reversible perfusion defects. [There is end systolic thickening and brightening]. [The gated Cardiolite study demonstrates myocardial thickening and inward wall motion]. The left ventricle appears dilated. The reported LVEF is 47%. Impression: 1. Pharmacologic (Regadenoson) evaluation 2. Peak pharmacologic ECG with no diagnostic changes. 3. [There were no cardiac dysrhythmias pretest, during pharmacologic infusion, or recovery]. 5. No fixed or reversible perfusion defects. 6. The gated Cardiolite study reports an LVEF of 47%. This note was generated with [employer] software. It may contain incorrect words, spelling, and punctuation that were not noted in checking the note before signing.
--- NOTE | 2022-08-22 14:17 | PCM.PN.HOSP ---
Reason for Visit Reason for Visit: Diagnoses Syncope and collapse (08/21/22) Subjective Subjective Not presently having chest pain or shortness of breath Objective Data Objective Data Vital Signs: Vital Signs Temp Pulse Resp BP Pulse Ox O2 Del Method 97.3 F L 61 16 127/88 H 100 Room Air 08/22/22 11:22 08/22/22 11:22 08/22/22 11:22 08/22/22 11:22 08/22/22 11:22 08/22/22 11:22 Oxygen Delivery Method Room Air Weight: 93.3 kg Body Mass Index (BMI) 28.7 Intake & Output: Intake and Output for Last 24 Hours 08/20/22 08/21/22 08/22/22 23:59 23:59 23:59 Intake Total 1000 / 1000 Balance 1000 / 1000 Lab / Micro Data Result Diagrams: 08/21/22 19:18 08/22/22 00:50 Labs: Laboratory Results - last 24 hr 08/21/22 19:18: WBC 8.6, RBC 3.52 L, Hgb 11.4 L, Hct 34.6 L, MCV 98.3 H, MCH 32.4 H, MCHC 32.9, RDW Std Deviation 47.8 H, RDW Coeff of Subhash 13.4, Plt Count 223, MPV 9.8, Immature Gran % (Auto) 0.500, Neut % (Auto) 57.9, Lymph % (Auto) 34.6, [place]th[place]omew % (Auto) 6.1, Eos % (Auto) 0.7, Baso % (Auto) 0.2, Absolute Neuts (auto) 5.0, Absolute Lymphs (auto) 2.96, Nucleated RBC % 0 08/21/22 19:18: Sodium 143, Potassium 3.3 L, Chloride 110 H, Carbon Dioxide 28.0, Anion Gap 5, BUN 6 L, Creatinine 0.90, Estim Creat Clear Calc 92.96, Est GFR (MDRD) Af Amer 111, Est GFR (MDRD) Non-Af 92, BUN/Creatinine Ratio 6.7 L, Glucose 85, Calcium 8.7, Troponin I High Sens 55 08/21/22 21:18: Troponin I High Sens 54 08/22/22 00:50: Sodium 144, Potassium 3.7, Chloride 112 H, Carbon Dioxide 27.0, Anion Gap 5, BUN 6 L, Creatinine 0.75, Estim Creat Clear Calc 111.56, Est GFR (MDRD) Af Amer 136, Est GFR (MDRD) Non-Af 113, BUN/Creatinine Ratio 8.0 L, Glucose 109 H, Calcium 8.5 08/22/22 00:50: Troponin I High Sens 50 Radiography Diagnostic Testing: Radiology Impression Brain CT 08/21/22 18:51 IMPRESSION: No evidence of acute intracranial calvarial abnormality. No major interval change. If there is continued clinical concern, MRI is recommended. AIDOC was utilized to assist in identifying pertinent positive findings in this case. Electronically Signed: Trevon Martínez DO at 20:06 EDT Reading Location ID and State: [place] / [place] Tel [phone], Service support , Chest X-Ray 08/21/22 19:36 IMPRESSION: No acute cardiopulmonary disease or interval change Electronically Signed: Trevon Martínez DO at 20:06 EDT Reading Location ID and State: [address] [place] [address] Tel [phone], Service support , Echocardiogram 08/22/22 09:36 Interpretation Summary The left ventricular ejection fraction is 40 %. Moderately dilated left ventricle. Mild (1+) mitral valve insufficiency. Aortic sclerosis, no stenosis. The study was technically difficult. Ordering Physician: Toma Fong Referring Physician: Loy Stubbs M.D. Performed By: James Sharma RCS Physical Exam Narrative General: Resting comfortably in bed HEENT: Atraumatic, normocephalic Eyes: Anicteric, normal conjunctiva, extraocular movements grossly intact Neck: Supple Respiratory: Clear to auscultation bilaterally, normal respiratory effort Cardiovascular: Regular rate and rhythm GI: Soft, nontender, nondistended Extremities: No edema Musculoskeletal: Moving all extremities Neuro: No overt focal neurological deficits Skin: No rashes appreciated Psych: Not cooperative Assessment & Plan Assessment/Plan (1) Syncope: PLAN: Plan #Syncope -Syncopal episode at home unwitnessed, on telemetry with heart rate between 40s and [id number] held -QTc not prolonged on his EKG -Stress test negative however limited echo was also obtained to assess EF and any aortic pathology and EF demonstrated at 40% and did note that there was inferior hypokinesis which was not present on his echo from 04/27/2022 (EF 55%) -Given new wall motion abnormalities with syncope and chest pain on presentation cardiology consulted #Chest pain with history of coronary artery disease status post stent placement previously -Chest pain on presentation -Troponins negative -Did have inferior wall motion abnormalities however, cardiology consulted #essential hypertension -Coreg with holding parameters #DVT prophylaxis: -Lovenox subcu Total clinical time spent by myself addressing the patient's medical issues, reviewing all of his data, and collaborating with patient's care team: 37 minutes Charges/Coding Visit Charges Inpatient E&M: 70346 Subs Hosp L3
[2022-08-22 17:05] VITALS: BP 124/74; PULSE 67; RESP 16; TEMP 36.7; O2SAT 99
[2022-08-22] MEDS: Carvedilol 3.125 MG TABLET PO (17:07)
[2022-08-22 22:09] VITALS: BP 154/73; PULSE 61; RESP 18; TEMP 36.9; O2SAT 100
[2022-08-22] MEDS: QUEtiapine 100 MG Tablet PO (22:12)
[2022-08-22] MEDS: Atorvastatin Calcium 40 MG Tablet PO (22:12)
[2022-08-23] VITALS (11 sets, daily range): BP systolic 105–141; BP diastolic 56–80; PULSE 59–69; RESP 8–21; TEMP 36.4–37; O2SAT 97–100
[2022-08-23 06:05] LABS: Absolute Lymphocyte Count 3.28 X10^3/uL (0.83-4.51); Absolute Neutrophil Count 4.2 X10^3/uL (2.0-7.7); Basophil# 0.03 X10^3/uL; Basophil% 0.4 % (0-1); Eosinophil# 0.03 X10^3/uL; Eosinophils% 0.4 % (0-5); Hematocrit 33.6 % (40-54); Hemoglobin 11.3 g/dL (13.0-16.5); Lymphocyte # 3.28 X10^3/ul (0.83-4.51); Lymphocyte % 40.4 % (19-41); Mean Corp Hgb Conc 33.6 g/dL (32-36); Mean Corpuscular Hgb 32.4 pg (27.0-32.0); Mean Corpuscular Volume 96.3 fL (80-94); Mean Platelet Vol. 10.2 fl (6.2-12.0); Monocyte# 0.57 X10^3/uL; NRBC Flagged by Analyzer 0 % (0-5); Neutrophil # 4.19 X10^3/uL (2.7-7.7); Neutrophil % 51.6 % (47-70); Platelet Count 239 K/mm3 (150-450); RBC Distribution Width CV 13.7 % (11.6-14.6); RBC Distribution Width SD 47.8 fl (35.1-43.9); Red Blood Count 3.49 M/mm3 (4.6-6.2); White Blood Count 8.1 K/mm3 (4.4-11.0)
[2022-08-23 06:15] LABS: International Normalized Ratio 1.2; Prothrombin Time (Protime)PT. 15.2 SECONDS (11.7-14.9)
[2022-08-23 06:40] LABS: ALB/GLOB Ratio 0.9 RATIO (0.9-2.4); AST(SGOT) 16 U/L (15-37); Alanine Aminotransfer ALT/SGPT 18 U/L (16-61); Albumin, Serum 3.1 g/dL (3.2-5.0); Alkaline Phosphatase 90 U/L (45-117); Anion Gap 4 (5-15); BUN 8 mg/dL (7-18); BUN/Creat Ratio 10.6 RATIO (10-20); Calcium,Total 8.6 mg/dL (8.5-10.1); Chloride 113 mmol/L (98-107); Creatinine, Serum 0.76 mg/dL (0.70-1.30); EST Glomerular Filtration Rate 112 mL/min (>60); Est Glom Filt Rate - Afr Amer 136 mL/min (>60); Estimated Creatinine Clearance 110.09 ml/min; Globulin 3.5 g/dL (2.2-4.2); Glucose 85 mg/dL (74-106); Potassium 3.4 mmol/L (3.5-5.1); Protein, Total 6.6 g/dL (6.4-8.2); Sodium Level 144 mmol/L (136-145)
[2022-08-23] MEDS: Clopidogrel Bisulfate 75 MG Tablet PO (06:54)
[2022-08-23] MEDS: Aspirin 81 MG TAB.CHEW PO (06:54)
[2022-08-23] MEDS: Carvedilol 3.125 MG TABLET PO ×2 (06:54)
[2022-08-23] MEDS: levETIRAcetam 500 MG Tablet PO (06:55)
--- NOTE | 2022-08-23 08:51 | PCM.CONS.C ---
Assessment & Plan Assessment/Plan (1) Left ventricular systolic dysfunction (LVSD): PLAN: Dilated left ventricular cavity. Ejection fraction noted is 40% on echocardiogram with inferior wall motion abnormality. Together with his complaint of chest pain and history of CAD, even though the stress Myoview is negative for ischemia, I recommend coronary angiography for definitively ruling out coronary ischemia and possible revascularization. Risks benefits and alternatives explained to patient. He understands these and wishes to proceed. (2) CAD (coronary artery disease): PLAN: See #1 above. (3) Syncope: PLAN: Arrhythmogenic versus neurogenic. For coronary angiography to rule out ischemia. (4) Hypertension: PLAN: Continue current medications. (5) Dyslipidemia: PLAN: On atorvastatin. HPI Consult Data Date of Consult: 08/23/22 HPI Narrative Reason for Consultation: Abnormal echocardiogram HPI Narrative: This gentleman has past medical history significant for coronary artery disease status post percutaneous intervention in the remote past at [facility], hypertension, dyslipidemia, and seizure disorder. He presented to the hospital with a syncopal episode. No seizure activity reported by son. Please note that the patient is not a great historian. History mostly obtained from the chart. Patient also complains of chest pain when he recovered from his syncopal episode. He has had an echocardiogram done which showed dilated left ventricle with inferior hypokinesis. Ejection fraction 40 to 45%. His previous echocardiogram done in May of this year showed ejection fraction of 55%. Patient also had a Lexiscan stress Myoview. It showed dilated left ventricle with EF of 47% but with no ischemia. PFSH Medical History CAD (coronary artery disease) Cannabis use disorder Hydradenitis Hyperlipidemia Hypertension Obesity Seizure Stroke Tobacco use Home Medications cholecalciferol (vitamin D3) 125 mcg (5,000 unit) capsule 10,000 unit DAILY 04/12/22 [History Last Taken Unknown] folic acid 1 mg tablet 1 mg PO DAILY #30 tabs 04/12/22 [Rx Last Taken Unknown] pyridoxine (vitamin B6) 100 mg tablet 100 mg PO DAILY #30 tabs 04/12/22 [Rx Last Taken Unknown] nystatin 100,000 unit/gram topical powder (Nyamyc) 100,000 unit topical DAILY 04/27/22 [History Last Taken Unknown] aspirin 81 mg chewable tablet 81 mg PO BREAKFAST #0 tabs 04/28/22 [Rx Last Taken Unknown] atorvastatin 40 mg tablet 40 mg PO DAILY #30 tabs 04/28/22 [Rx Last Taken Unknown] carvedilol 6.25 mg tablet 6.25 mg PO BID #60 tabs 04/28/22 [Rx Last Taken Unknown] clopidogrel 75 mg tablet 75 mg PO DAILY #30 tabs 04/28/22 [Rx Last Taken Unknown] levetiracetam 500 mg tablet 500 mg PO BID #60 tabs 04/28/22 [Rx Last Taken Unknown] nitroglycerin 0.4 mg sublingual tablet 0.4 mg sublingual PRN PRN CP #10 tabs 04/28/22 [Rx Last Taken Unknown] potassium chloride 20 mEq tablet,extended release(part/cryst) 20 meq PO DAILY #30 tabs 04/28/22 [Rx Last Taken Unknown] sulfamethoxazole 800 mg-trimethoprim 160 mg tablet (Bactrim DS) 1 tab PO BID #10 tabs 04/28/22 [Rx Last Taken Unknown] docusate sodium 100 mg capsule (Colace) 100 mg PO BID PRN constipation #30 caps 05/17/22 [Rx Last Taken Unknown] hydrocortisone acetate 25 mg rectal suppository (Anusol-HC) 25 mg RI DAILY 14 days #24 ea 05/17/22 [Rx Last Taken Unknown] quetiapine 100 mg tablet 100 mg PO QHS 05/17/22 [History Last Taken Unknown] trazodone 100 mg tablet 100 mg PO QHS 05/17/22 [History Last Taken Unknown] hydrocodone-acetaminophen 5-325mg 5mg-325mg 1 tab PO Q4H PRN PRN Pain 2 days #10 TABLETS 06/08/22 [Rx Last Taken Unknown] Allergy/AdvReac Type Severity Reaction Status Date / Time No Known Allergies Allergy Verified 06/08/22 13:19 Family History Mother Hypertension Diabetes Aunt Diabetes Surgical History H/O heart artery stent Hx of cholecystectomy Social History household members: family Smoking Status: Former smoker how long ago did patient quit smoking: Quit ~ 2 wks prior to presentation, intermittent Black & Milds since teen. alcohol intake: current alcohol intake frequency: holidays/special occasions only substance use type: marijuana Physical Exam Narrative Heart sounds 1 and 2 normal. Chest clear to auscultation. Alert oriented x3. No ankle edema noted. Risk Stratification Risk Stratification Applicable: No Objective Data Vital Signs: Vital Signs Temp Pulse Resp BP Pulse Ox O2 Del Method 98.6 F 69 18 128/68 H 99 Room Air 08/23/22 06:50 08/23/22 06:50 08/23/22 06:50 08/23/22 06:50 08/23/22 06:50 08/23/22 08:07 Oxygen Delivery Method Room Air Weight: 205 lb 11.06 oz Body Mass Index (BMI) 28.7 Intake & Output: Intake and Output for Last 24 Hours 08/21/22 08/22/22 08/23/22 23:59 23:59 23:59 Intake Total 1000 / 1000 320 / 380 60 / 60 Balance 1000 / 1000 320 / 380 60 / 60 Lab / Micro Data Result Diagrams: 08/23/22 05:30 08/23/22 05:30 Labs: Laboratory Results - last 24 hr 08/23/22 05:30: WBC 8.1, RBC 3.49 L, Hgb 11.3 L, Hct 33.6 L, MCV 96.3 H, MCH 32.4 H, MCHC 33.6, RDW Std Deviation 47.8 H, RDW Coeff of Subhash 13.7, Plt Count 239, MPV 10.2, Immature Gran % (Auto) 0.200, Neut % (Auto) 51.6, Lymph % (Auto) 40.4, [place] % (Auto) 7.0, Eos % (Auto) 0.4, Baso % (Auto) 0.4, Absolute Neuts (auto) 4.2, Absolute Lymphs (auto) 3.28, Nucleated RBC % 0 08/23/22 05:30: PT 15.2 H, INR 1.2 08/23/22 05:30: Sodium 144, Potassium 3.4 L, Chloride 113 H, Carbon Dioxide 27.0, Anion Gap 4 L, BUN 8, Creatinine 0.76, Estim Creat Clear Calc 110.09, Est GFR (MDRD) Af Amer 136, Est GFR (MDRD) Non-Af 112, BUN/Creatinine Ratio 10.6, Glucose 85, Calcium 8.6, Total Bilirubin 0.70, AST 16, ALT 18, Alkaline Phosphatase 90, Total Protein 6.6, Albumin 3.1 L, Globulin 3.5, Albumin/Globulin Ratio 0.9 Rhythm Strip Rhythm Strip: Sinus Rhythm Cardiology Labs/Tests 08/23/22 05:30: WBC 8.1, RBC 3.49 L, Hgb 11.3 L, Hct 33.6 L, MCV 96.3 H, MCH 32.4 H, MCHC 33.6, Plt Count 239, MPV 10.2, Immature Gran % (Auto) 0.200, Neut % (Auto) 51.6, Lymph % (Auto) 40.4, [place] % (Auto) 7.0, Eos % (Auto) 0.4, Baso % (Auto) 0.4, Absolute Neuts (auto) 4.2, Nucleated RBC % 0 08/23/22 05:30: PT 15.2 H, INR 1.2 08/23/22 05:30: Sodium 144, Potassium 3.4 L, Chloride 113 H, Carbon Dioxide 27.0, Anion Gap 4 L, BUN 8, Creatinine 0.76, Est GFR (MDRD) Af Amer 136, Est GFR (MDRD) Non-Af 112, BUN/Creatinine Ratio 10.6, Glucose 85, Calcium 8.6, Total Bilirubin 0.70 Rhythm: EKG: Normal sinus rhythm. ST changes suggestive of anterolateral ischemia. ECHO: Stress Test: Cardiac Cath: PCI: CT Surgery: Holter monitor: EPS: PPM: CXR: Chest CT Scan: Radiography Diagnostic Testing: Radiology Impression Echocardiogram 08/22/22 09:36 Interpretation Summary The left ventricular ejection fraction is 40 %. Moderately dilated left ventricle. Mild (1+) mitral valve insufficiency. Aortic sclerosis, no stenosis. The study was technically difficult. Ordering Physician: Toma Fong Referring Physician: Loy Stubbs M.D. Performed By: James Sharma RCS
[2022-08-23] MEDS: Potassium Chloride Oral Tablet 20 MEQ 40 MEQ PO (09:29)
--- NOTE | 2022-08-23 11:22 | CASEMGMT ---
Tertiary facilities in-network with patient's insurance: [facility], [facility], [facility], [facility], [facility], [facility].
--- NOTE | 2022-08-23 11:50 | CL.D_ITS ---
Patient Name: IDA NEWTON Study Date: 08/23/2022 Performing: Jono Green MD Ht: 71 inches 180.34 cm : 1960 Wt: 205.69 lbs 93.3 kg Age: 62 Gender: male BSA: 2.13 PROCEDURE(S) PERFORMED DC01-([id number])LHC/COR/LV CLINICAL PROFILE AND INDICATIONS Indications: Cardiomyopathy Heart Failure: None Stress/Imaging Stress Test w/SPECT MPI: Yes Result: NegativeStress Test with SPECT MPI: Negative Angina Classification Anginal Classification w/in 2 Weeks: No symptoms CONCLUSIONS Stent to Mid LCX/OM2 patent; distal LCX jailed 90%, small 1.5 mm vessel Stent to distal RCA patent LVEF 40-45% RECOMMENDATIONS Medical therapy DESCRIPTION OF PROCEDURE The patient arrived to the procedure lab. The risks and benefits of the procedure as well as a full description of our services here and current unavailability of surgical backup were fully explained to the patient and/or their significant other prior to the catheterization. The Timeout was completed, verifying the correct patient and procedure. The patient's procedural site was prepped and draped in the usual fashion. Local anesthetic was given subcutaneously to right radial region with Lidocaine 2%. Using a modified Seldinger technique, arterial access was obtained via the right radial artery, a 6Fr sheath was inserted. Left Coronary Artery selective angiography was performed in multiple views using a 5 Fr. 4.0 [place] catheter. Right Coronary Artery selective angiography was then performed in multiple views using a 5 Fr. 4.0 [place] catheter. Left Ventriculography was performed in LANCE projection using a 5 Fr. Pigtail catheter. LV to AO pullback pressures were then recorded.The arterial sheath was pulled and a TR Band was applied for hemostasis w/ 11ml air CORONARY ANGIOGRAPHY DOMINANCE: Right Dominant LEFT HEART ASSESSMENT Left Ventricular Ejection Fraction: by LV Gram 45 % LVEDP: 18 mmHg LEFT MAIN: Angiographically normal LEFT ANTERIOR DESCENDING ARTERY: LAD: Tubular 50% Mid lesion in LAD CIRCUMFLEX ARTERY: CIRCUMFLEX: Tubular 20% Ostial lesion in Circumflex Tubular 90% Distal lesion in Circumflex COMPLICATIONS No Complications PROCEDURE MEDICATIONS Versed 1 mg IV Fentanyl 50 mcg IV Oxygen: 2 L/min via nasal cannula Heparin given IA 08/23/2022 11:25:12 Verapamil 2.5mg, Ntg 200mcgs, 2000 units of Heparin given IA 08/23/2022 11:25:12 IV Bolus: .9 NaCl 250 ml total 08/23/2022 11:34:53 SUMMARY OF HEMODYNAMIC DATA Time AIR REST ECG 11:03:08 AO 121/70 (89) SA 11:30:15 LV 140/0, 16 11:35:51 LV 137/4, 15 11:36:00 LV 134/6, 19 11:37:14 LV 132/6, 18 11:37:22 LVp 133/6, 18 11:37:26 AOp 137/70 (95) 11:37:33 11:48:28 Signed By Jono Green MD On 08/23/2022 11:49:25 Jono Green MD
--- NOTE | 2022-08-23 11:51 | PCM.PN.BLA ---
Progress Note Please note cath findings. Continue medical treatment. Recommend 15-day event monitor upon discharge.
[2022-08-23] MEDS: amLODIPine 2.5 MG Tablet PO (12:59)
[2022-08-23] MEDS: Lisinopril 2.5 MG Tablet PO (12:59)
--- NOTE | 2022-08-23 13:33 | PCM.DC ---
Discharge Instructions Diet Discharge Diet: - (DASH diet) Activity Discharge Activity: - (See alternative discharge instructions) Follow Up Care Test Results: Test results from this visit will be discussed in further detail at your follow-up appointment, if applicable. Discharge Plan Admission Admit Date/Time: 08/22/22 12:37 Primary Reason for Your Visit: Episode of passing out and chest pain Attending Provider: Toma Fong Primary Care Provider: Jose Stubbs Consulting Providers: Alton Christensen ; Jono Green Instructions Patient Instructions: DASH Plan Eat Heart Healthy Food Additional Instructions / Restrictions: DISCHARGE INSTRUCTIONS PLEASE READ *Please take this with you to your next doctors appointment* -Please follow-up with cardiology upon discharge. Please your cardiology office to schedule hospital follow-up appointment upon discharge. -You will be discharged with a 30-day event monitor to assess any underlying heart rhythm abnormalities -Your Coreg was decreased to 3.125 mg twice daily due to slight lowering of your heart rate, it is advised to continue that dosing -Continue aspirin and statin as well as clopidogrel -You will also be prescribed amlodipine and lisinopril -Can continue other current home medication -Do only light and easy activities for 2 to 3 days after your stent placement, ask for help with chores and errands while you recover and have someone drive you to your appointments. -Unless your job involves lifting you may return to normal activities within 2 days -Please take your medications as prescribed, do not skip doses -Check your incisions every day for signs of infection which would include redness, swelling, leaking. It is normal to have a small bruise or bump where the catheter was placed but a bruise that is getting larger is not normal. Please tell your healthcare team about this. Please proceed to the emergency department if you have uncontrollable bleeding from the site. -It is important to eat a diet that is low in fat, salt, and cholesterol -You will be set up with cardiac rehab upon discharge, it is important that you follow-up -Okay to shower from the day after your heart catheterization but keep your incision site clean and dry. -Please call your primary care provider's office upon discharge to schedule a hospital follow up within 1 week. -For any concerning signs or symptoms please call 911 or proceed to the nearest emergency department Discharge Orders/Prescriptions Prescriptions: New amlodipine 2.5 mg Tablet 2.5 mg PO DAILY 30 Days Qty: 30 0RF lisinopril 2.5 mg Tablet 2.5 mg PO DAILY 30 Days Qty: 30 0RF Continued cholecalciferol (vitamin D3) 125 mcg (5,000 unit) capsule 10,000 unit DAILY Label Comments: take 2 capsules by mouth once daily folic acid 1 mg tablet 1 mg PO DAILY Qty: 30 0RF pyridoxine (vitamin B6) 100 mg tablet 100 mg PO DAILY Qty: 30 0RF nystatin [Nyamyc] 100,000 unit/gram powder 100,000 unit TOPICAL DAILY levetiracetam 500 mg Tablet 500 mg PO BID Qty: 60 0RF aspirin 81 mg Tablet,Chewable 81 mg PO BREAKFAST Qty: 0 0RF atorvastatin 40 mg tablet 40 mg PO DAILY Qty: 30 0RF clopidogrel 75 mg tablet 75 mg PO DAILY Qty: 30 0RF potassium chloride 20 mEq tablet,ER particles/crystals 20 meq PO DAILY Qty: 30 0RF Label Comments: take 1 tablet by mouth once daily nitroglycerin 0.4 mg tablet, sublingual 0.4 mg sublingual PRN PRN (Reason: CP) Qty: 10 0RF quetiapine 100 mg Tablet 100 mg PO QHS trazodone 100 mg Tablet 100 mg PO QHS docusate sodium [Colace] 100 mg capsule 100 mg PO BID PRN (Reason: constipation) Qty: 30 0RF hydrocortisone acetate [Anusol-HC] 25 mg suppository 25 mg OR DAILY 14 Days Qty: 24 1RF Changed carvedilol 6.25 mg tablet 3.125 mg PO BID 30 Days Qty: 60 0RF Rx Instructions: must administer with a meal/food Other Ambulatory Orders: 30 Day Event Recorder Preventi (Urgent) Timeframe: 1 Day Facility: [facility] - Location: Cardiovascular Services Ordered By: Dr. Toma Fong Referrals / Follow Up: Jono Green MD [Med Staff - Active Staff] - (If you do not already have a extruder operator you can call the [place] cardiology office to establish care) Jose Stubbs DO [Primary Care Provider] - Within 1 Week Disposition Disposition (needs filled in before D/C Order can be placed): Home, Self Care
--- NOTE | 2022-08-23 13:57 | PCM.DC.SUM ---
Providers Date of Admission: 08/22/22 Date of Discharge: 08/23/22 Primary Care Physician: Dr. Jose Stubbs, DO Consultations 08/22/22 14:17 Consult: Cardiology Routine Consulting Provider: Jono Green Reason for Consult: Came in w/ syncope and chest pain, has new regional wall motion abn on echo EMERGENT Consult: No MD Notified: Yes Date Notified: 08/22/22 Time Notified: 14:46 Method of Notification: Text Reason For Visit: CHEST PAIN, SYNCOPE Diagnosis Discharge Diagnosis (1) Left ventricular systolic dysfunction (LVSD): Status: Acute Code(s): I51.9 - Heart disease, unspecified (2) CAD (coronary artery disease): Status: Acute Code(s): I25.10 - Atherosclerotic heart disease of [place] coronary artery without angina pectoris (3) Syncope: Status: Acute Code(s): R55 - Syncope and collapse (4) Hypertension: Status: Chronic Code(s): I10 - Essential (primary) hypertension (5) Dyslipidemia: Status: Acute Code(s): E78.5 - Hyperlipidemia, unspecified Plan #Syncope #Left ventricular systolic dysfunction #Chest pain with history of coronary artery disease status post stent placement previously #essential hypertension Medications at Discharge Home Medications cholecalciferol (vitamin D3) 125 mcg (5,000 unit) capsule 10,000 unit DAILY 04/12/22 folic acid 1 mg tablet 1 mg PO DAILY #30 tabs 04/12/22 pyridoxine (vitamin B6) 100 mg tablet 100 mg PO DAILY #30 tabs 04/12/22 nystatin 100,000 unit/gram topical powder (Nyamyc) 100,000 unit topical DAILY 04/27/22 aspirin 81 mg chewable tablet 81 mg PO BREAKFAST #0 tabs 04/28/22 atorvastatin 40 mg tablet 40 mg PO DAILY #30 tabs 04/28/22 clopidogrel 75 mg tablet 75 mg PO DAILY #30 tabs 04/28/22 levetiracetam 500 mg tablet 500 mg PO BID #60 tabs 04/28/22 nitroglycerin 0.4 mg sublingual tablet 0.4 mg sublingual PRN PRN CP #10 tabs 04/28/22 potassium chloride 20 mEq tablet,extended release(part/cryst) 20 meq PO DAILY #30 tabs 04/28/22 docusate sodium 100 mg capsule (Colace) 100 mg PO BID PRN constipation #30 caps 05/17/22 hydrocortisone acetate 25 mg rectal suppository (Anusol-HC) 25 mg [place] DAILY 14 days #24 ea 05/17/22 quetiapine 100 mg tablet 100 mg PO QHS 05/17/22 trazodone 100 mg tablet 100 mg PO QHS 05/17/22 amlodipine 2.5 mg tablet 2.5 mg PO DAILY 30 days #30 tabs 08/23/22 carvedilol 6.25 mg tablet 3.125 mg PO BID 30 days #60 tabs 08/23/22 lisinopril 2.5 mg tablet 2.5 mg PO DAILY 30 days #30 tabs 08/23/22 Hospital Course Procedures - (stress test, echo, cath) Summary of Care Provided Minutes Spent on Discharge: 35 Hospital Course: 62-year-old male with a history of coronary artery disease with previous stenting, obesity, possible seizure disorder, tobacco use presented to [facility] 08/21/2022 after a syncopal episode where he was found down, woke up with chest pain and had nitro and presented to the ED. Initially had stress test which was negative however had echocardiogram as well to assess valve and EF was found to have EF of 40% with inferior wall motion abnormalities so he was taken for heart cath and did not require stenting, medical therapy recommended. On day of discharge patient denies any more symptoms. Discharge instructions as follows: -Please follow-up with cardiology upon discharge.? Please your cardiology office to schedule hospital follow-up appointment upon discharge. -You will be discharged with a 30-day event monitor to assess any underlying heart rhythm abnormalities -Your Coreg was decreased to 3.125 mg twice daily due to slight lowering of your heart rate, it is advised to continue that dosing -Continue aspirin and statin as well as clopidogrel -You will also be prescribed amlodipine and lisinopril -Can continue other current home medication -Do only light and easy activities for 2 to 3 days after your stent placement, ask for help with chores and errands while you recover and have someone drive you to your appointments. -Unless your job involves lifting you may return to normal activities within 2 days -Please take your medications as prescribed, do not skip doses -Check your incisions every day for signs of infection which would include redness, swelling, leaking.? It is normal to have a small bruise or bump where the catheter was placed but a bruise that is getting larger is not normal.? Please tell your healthcare team about this.? Please proceed to the emergency department if you have uncontrollable bleeding from the site. -It is important to eat a diet that is low in fat, salt, and cholesterol -You will be set up with cardiac rehab upon discharge, it is important that you follow-up -Okay to shower from the day after your heart catheterization but keep your incision site clean and dry. -Please call your primary care provider's office upon discharge to schedule a hospital follow up within 1 week. -For any concerning signs or symptoms please call 911 or proceed to the nearest emergency department Physical Exam Narrative General: Resting comfortably in bed HEENT: Atraumatic, normocephalic Eyes: Anicteric, normal conjunctiva, extraocular movements grossly intact Neck: Supple Respiratory: Clear to auscultation bilaterally, normal respiratory effort Cardiovascular: Regular rate and rhythm GI: Soft, nontender, nondistended Extremities: No edema Musculoskeletal: Moving all extremities Neuro: No overt focal neurological deficits Skin: No rashes appreciated Psych: More cooperative today Weight / BMI Weight Weight: 93.3 kg Body Mass Index (BMI) 28.7 ABG / Lab / Microbiology Data Result Diagrams: 08/23/22 05:30 08/23/22 05:30 Laboratory: Laboratory Results - last 24 hr 08/23/22 05:30: WBC 8.1, RBC 3.49 L, Hgb 11.3 L, Hct 33.6 L, MCV 96.3 H, MCH 32.4 H, MCHC 33.6, RDW Std Deviation 47.8 H, RDW Coeff of Subhash 13.7, Plt Count 239, MPV 10.2, Immature Gran % (Auto) 0.200, Neut % (Auto) 51.6, Lymph % (Auto) 40.4, Alfalfa % (Auto) 7.0, Eos % (Auto) 0.4, Baso % (Auto) 0.4, Absolute Neuts (auto) 4.2, Absolute Lymphs (auto) 3.28, Nucleated RBC % 0 08/23/22 05:30: PT 15.2 H, INR 1.2 08/23/22 05:30: Sodium 144, Potassium 3.4 L, Chloride 113 H, Carbon Dioxide 27.0, Anion Gap 4 L, BUN 8, Creatinine 0.76, Estim Creat Clear Calc 110.09, Est GFR (MDRD) Af Amer 136, Est GFR (MDRD) Non-Af 112, BUN/Creatinine Ratio 10.6, Glucose 85, Calcium 8.6, Total Bilirubin 0.70, AST 16, ALT 18, Alkaline Phosphatase 90, Total Protein 6.6, Albumin 3.1 L, Globulin 3.5, Albumin/Globulin Ratio 0.9 D/C Instructions Discharge Diet: - (DASH diet) Meaningful Use Info Meaningful Use Diagnoses (Choose all that apply): None applicable Discharge Plan Admission Admit Date/Time: 08/22/22 12:37 Primary Reason for Your Visit: Episode of passing out and chest pain Attending Provider: Toma Fong Primary Care Provider: Jose Stubbs Consulting Providers: Alton Christensen ; Jono Green Instructions Patient Instructions: DASH Plan Eat Heart Healthy Food Additional Instructions / Restrictions: DISCHARGE INSTRUCTIONS PLEASE READ *Please take this with you to your next doctors appointment* -Please follow-up with cardiology upon discharge. Please your cardiology office to schedule hospital follow-up appointment upon discharge. -You will be discharged with a 30-day event monitor to assess any underlying heart rhythm abnormalities -Your Coreg was decreased to 3.125 mg twice daily due to slight lowering of your heart rate, it is advised to continue that dosing -Continue aspirin and statin as well as clopidogrel -You will also be prescribed amlodipine and lisinopril -Can continue other current home medication -Do only light and easy activities for 2 to 3 days after your stent placement, ask for help with chores and errands while you recover and have someone drive you to your appointments. -Unless your job involves lifting you may return to normal activities within 2 days -Please take your medications as prescribed, do not skip doses -Check your incisions every day for signs of infection which would include redness, swelling, leaking. It is normal to have a small bruise or bump where the catheter was placed but a bruise that is getting larger is not normal. Please tell your healthcare team about this. Please proceed to the emergency department if you have uncontrollable bleeding from the site. -It is important to eat a diet that is low in fat, salt, and cholesterol -You will be set up with cardiac rehab upon discharge, it is important that you follow-up -Okay to shower from the day after your heart catheterization but keep your incision site clean and dry. -Please call your primary care provider's office upon discharge to schedule a hospital follow up within 1 week. -For any concerning signs or symptoms please call 911 or proceed to the nearest emergency department Discharge Orders/Prescriptions Prescriptions: New amlodipine 2.5 mg Tablet 2.5 mg PO DAILY 30 Days Qty: 30 0RF lisinopril 2.5 mg Tablet 2.5 mg PO DAILY 30 Days Qty: 30 0RF Continued cholecalciferol (vitamin D3) 125 mcg (5,000 unit) capsule 10,000 unit DAILY Label Comments: take 2 capsules by mouth once daily folic acid 1 mg tablet 1 mg PO DAILY Qty: 30 0RF pyridoxine (vitamin B6) 100 mg tablet 100 mg PO DAILY Qty: 30 0RF nystatin [Nyamyc] 100,000 unit/gram powder 100,000 unit TOPICAL DAILY levetiracetam 500 mg Tablet 500 mg PO BID Qty: 60 0RF aspirin 81 mg Tablet,Chewable 81 mg PO BREAKFAST Qty: 0 0RF atorvastatin 40 mg tablet 40 mg PO DAILY Qty: 30 0RF clopidogrel 75 mg tablet 75 mg PO DAILY Qty: 30 0RF potassium chloride 20 mEq tablet,ER particles/crystals 20 meq PO DAILY Qty: 30 0RF Label Comments: take 1 tablet by mouth once daily nitroglycerin 0.4 mg tablet, sublingual 0.4 mg sublingual PRN PRN (Reason: CP) Qty: 10 0RF quetiapine 100 mg Tablet 100 mg PO QHS trazodone 100 mg Tablet 100 mg PO QHS docusate sodium [Colace] 100 mg capsule 100 mg PO BID PRN (Reason: constipation) Qty: 30 0RF hydrocortisone acetate [Anusol-HC] 25 mg suppository 25 mg WV DAILY 14 Days Qty: 24 1RF Changed carvedilol 6.25 mg tablet 3.125 mg PO BID 30 Days Qty: 60 0RF Rx Instructions: must administer with a meal/food Other Ambulatory Orders: 30 Day Event Recorder Preventi (Urgent) Timeframe: 1 Day Facility: [facility] - Location: Cardiovascular Services Ordered By: Dr. Toma Fong Referrals / Follow Up: Jono Green MD [Med Staff - Active Staff] - (If you do not already have a gas engine performance engineer you can call the [place] cardiology office to establish care) Jose Stubbs DO [Primary Care Provider] - Within 1 Week Disposition Disposition (needs filled in before D/C Order can be placed): Home, Self Care Charges/Coding Visit Charges Inpatient E&M: 93573 Disch Hosp >30min
--- NOTE | 2022-08-23 14:05 | CASEMGMT ---
RN GARIMA Face to Face with patient for initial transition planning/care coordination assessment. RN CM introduced self and role at [facility]. Patient lying in bed, alert and oriented. Patient willing to participate in assessment and is able to answer all questions appropriately. Care providers, pharmacy, and demographics verified. Patient wishes to discharge home, denies need for home health at this time. Patient states he has no further needs or concerns at this time. CM to follow for discharge planning needs that may arise. PCP: [facility] Specialists: none Preferred Pharmacy: [facility] Insurance: [facility] Prescription Benefit: yes Living Will/HPOA: none LNOK: son Living Arrangements: Patient lives with son in a 2 story condo. Patient states he is independent and able to ambulate stairs. Transportation: son DME/HHC: Patient has walker, raised toilet, shower chair, and grab bars. Patient has had [facility] HHC in the past. No previous SNF. Disposition Plan: Patient to discharge home with family support and follow-up plans in place. Doreen QURESHI, RN, CM
--- NOTE | 2022-08-23 15:39 | PHA.DC.MC ---
Pharmacy Service has performed discharge medication reconciliation and counseling for this patient. 1. AMLODIPINE 2.5MG PO DAILY 2. LISINOPRIL 2.5MG PO DAILY The patient's discharge medication list was reviewed for discrepancies and discrepancies were resolved. Home Medications cholecalciferol (vitamin D3) 125 mcg (5,000 unit) capsule 10,000 unit DAILY 04/12/22 folic acid 1 mg tablet 1 mg PO DAILY #30 tabs 04/12/22 pyridoxine (vitamin B6) 100 mg tablet 100 mg PO DAILY #30 tabs 04/12/22 nystatin 100,000 unit/gram topical powder (Nyamyc) 100,000 unit topical DAILY 04/27/22 aspirin 81 mg chewable tablet 81 mg PO BREAKFAST #0 tabs 04/28/22 atorvastatin 40 mg tablet 40 mg PO DAILY #30 tabs 04/28/22 clopidogrel 75 mg tablet 75 mg PO DAILY #30 tabs 04/28/22 levetiracetam 500 mg tablet 500 mg PO BID #60 tabs 04/28/22 nitroglycerin 0.4 mg sublingual tablet 0.4 mg sublingual PRN PRN CP #10 tabs 04/28/22 potassium chloride 20 mEq tablet,extended release(part/cryst) 20 meq PO DAILY #30 tabs 04/28/22 docusate sodium 100 mg capsule (Colace) 100 mg PO BID PRN constipation #30 caps 05/17/22 hydrocortisone acetate 25 mg rectal suppository (Anusol-HC) 25 mg [place] DAILY 14 days #24 ea 05/17/22 quetiapine 100 mg tablet 100 mg PO QHS 05/17/22 trazodone 100 mg tablet 100 mg PO QHS 05/17/22 amlodipine 2.5 mg tablet 2.5 mg PO DAILY 30 days #30 tabs 08/23/22 carvedilol 6.25 mg tablet 3.125 mg PO BID 30 days #60 tabs 08/23/22 lisinopril 2.5 mg tablet 2.5 mg PO DAILY 30 days #30 tabs 08/23/22 The patient was counseled on the following discharge medications and changes in medications for homegoing were reviewed. The Reason for Use, instructions for use, and potential side effects were reviewed for all new medications. The patient's questions regarding all of their medications were answered. The patient was able to verbally demonstrate an understanding of their discharge medications. Patient counseled by pharmacy technician traineeIzaiah.
== END 2022-08-23 16:38 | disposition home or self-care (01) | DRG 192 ==
LOC: ED 18:57 → PCU 23:07
PROVIDERS: Physician Assistant; Admitting Provider Internal Medicine; Emergency Provider Student in an Organized Health Care Education/Training Program; PCP Family Medicine; Visit Provider Internal Medicine
DX: I11.9 Hypertensive heart disease without heart failure (principal); I42.0 Dilated cardiomyopathy; G40.909 Epilepsy, unspecified, not intractable, without status epilepticus; E78.5 Hyperlipidemia, unspecified; I25.10 Atherosclerotic heart disease of native coronary artery without angina pectoris; E66.9 Obesity, unspecified; Z68.28 Body mass index [BMI] 28.0-28.9, adult; Z95.5 Presence of coronary angioplasty implant and graft; Z79.02 Long term (current) use of antithrombotics/antiplatelets; Z79.82 Long term (current) use of aspirin; Z79.899 Other long term (current) drug therapy; Z87.891 Personal history of nicotine dependence; Z86.73 Personal history of transient ischemic attack (TIA), and cerebral infarction without residual deficits; R55 Syncope and collapse
CPT/HCPCS: A4216 ×2; C1769; C1894; J7030; 36415; 70450; 71045; 78452; 80048; 80053; 84484; 85025; 85610; 93005; 93017; 93308; 93458; 96360; 99152; 99153; 99221; 99285; A9500; Q9957; Q9967; C8924; G0378; J2785

== ENCOUNTER 2022-09-25 00:52 | Emergency (ER) | payer MEDICAID, SELFPAY ==
[2022-09-25 00:55] VITALS: BP 113/79; PULSE 56; RESP 18; TEMP 36.4; O2SAT 100; BMI 28.0
--- NOTE | 2022-09-25 01:02 | EKG12_ITS ---
Test Reason : Blood Pressure : / mmHG Vent. Rate : 057 BPM Atrial Rate : 057 BPM P-R Int : 184 ms QRS Dur : 104 ms QT Int : 450 ms P-R-T Axes : 078 045 095 degrees QTc Int : 438 ms Sinus bradycardia Minimal voltage criteria for LVH, may be normal variant ( [place] ) Nonspecific T wave abnormality Abnormal ECG Confirmed by STEPHANIE MORSE, TATE ([id number]), food editor ZENOBIA JAMESON ([id number]) on 09/26/2022 12:35:38 PM Referred By: YEMI Confirmed By:TATE BROWN MD
[2022-09-25 01:24] LABS: Absolute Lymphocyte Count 3.95 X10^3/uL (0.83-4.51); Absolute Neutrophil Count 5.4 X10^3/uL (2.0-7.7); Basophil# 0.03 X10^3/uL; Basophil% 0.3 % (0-1); Eosinophil# 0.09 X10^3/uL; Eosinophils% 0.9 % (0-5); Hemoglobin 12.1 g/dL (13.0-16.5); Lymphocyte # 3.95 X10^3/ul (0.83-4.51); Lymphocyte % 38.3 % (19-41); Mean Corp Hgb Conc 32.7 g/dL (32-36); Mean Corpuscular Hgb 32.1 pg (27.0-32.0); Mean Corpuscular Volume 98.1 fL (80-94); Mean Platelet Vol. 9.8 fl (6.2-12.0); Monocyte# 0.79 X10^3/uL; Monocyte% 7.7 % (0-10); NRBC Flagged by Analyzer 0 % (0-5); Neutrophil % 52.4 % (47-70); Platelet Count 247 K/mm3 (150-450); RBC Distribution Width CV 13.3 % (11.6-14.6); RBC Distribution Width SD 47.6 fl (35.1-43.9); Red Blood Count 3.77 M/mm3 (4.6-6.2); White Blood Count 10.3 K/mm3 (4.4-11.0)
[2022-09-25 01:44] LABS: AST(SGOT) 14 U/L (15-37); Alanine Aminotransfer ALT/SGPT 26 U/L (16-61); Albumin, Serum 3.6 g/dL (3.2-5.0); Alkaline Phosphatase 103 U/L (45-117); Anion Gap 4 (5-15); BUN 14 mg/dL (7-18); BUN/Creat Ratio 13.3 RATIO (10-20); Bilirubin, Direct 0.18 mg/dL (0.00-0.30); Calcium,Total 9.1 mg/dL (8.5-10.1); Chloride 107 mmol/L (98-107); Creatinine, Serum 1.05 mg/dL (0.70-1.30); EST Glomerular Filtration Rate 77 mL/min (>60); Est Glom Filt Rate - Afr Amer 93 mL/min (>60); Estimated Creatinine Clearance 79.68 ml/min; Globulin 4.5 g/dL (2.2-4.2); Glucose 92 mg/dL (74-106); Lipase 74 U/L (13-75); Potassium 3.7 mmol/L (3.5-5.1); Protein, Total 8.1 g/dL (6.4-8.2); Sodium Level 140 mmol/L (136-145); Troponin-I HS (w/2H Reflex) 54 pg/mL (3.0-78.0)
--- NOTE | 2022-09-25 01:45 | CT_ITS ---
INDICATION: pain EXAMINATION: CTA Chest and CTA Abdomen and Pelvis W/ Contrast Injection (and W/O Contrast Images if performed) TECHNIQUE: A CTA of the chest, abdomen, and pelvis is obtained with sagittal and coronal reconstructed MIP views. Three-dimensional surface rendered sequence of the thoracic and abdominal aorta was obtained. A radiation dose optimization technique was used for this scan. IV Contrast: IV 100mL [id number]-370 Oral contrast: None. RADIATION DOSAGE (If Supplied By Facility): CTDIvol = ( 15.13 ) mGy, DLP = ( 1449.08 ) mGycm COMPARISON: CT abdomen and pelvis 05/17/2022 FINDINGS: ---CTA CHEST LUNGS: Dependent atelectasis in the lungs. No consolidation. PLEURA: No pleural effusion. No pneumothorax. PULMONARY VESSELS: Suboptimal opacification due to the timing of injection. No pulmonary emboli identified in the large central pulmonary arteries. Otherwise not adequately assessed. MEDIASTINUM: A few calcified lymph nodes in the mediastinum. HEART: Not enlarged. Coronary artery calcifications present. AORTA/GREAT VESSELS: Thoracic aorta is normal caliber. Maximal transverse diameter at the ascending aorta 3.6 cm. No aneurysm or dissection. BONES/SOFT TISSUES: No acute findings. OTHER: None. ---CTA ABDOMEN PELVIS Image radiation related to position of the arms along the sides and respiratory motion. AORTA: Normal caliber. No dissection. Mild atherosclerotic calcifications. CELIAC ARTERY: Unremarkable. SMA: Unremarkable. RENAL ARTERIES: Unremarkable. JOHN: Unremarkable. ILIAC ARTERIES: Unremarkable. Atherosclerotic calcifications. RETROPERITONEUM: No retroperitoneal hematoma. Several prominent lymph nodes, especially along the iliac chain and pelvic sidewall bilaterally, technically not enlarged and not significantly changed LIVER: Unremarkable. GALLBLADDER/BILE DUCTS: Gallbladder is surgically absent. Common bile duct is not significantly dilated but is slightly enlarged compared to the prior. PANCREAS: Unremarkable. SPLEEN: Unremarkable. ADRENAL GLANDS: Unremarkable. KIDNEYS/URETERS: Unremarkable. BOWEL/MESENTERY: Suggestion of wall thickening of the descending colon with minimal adjacent stranding possibly exaggerated by suboptimal distention No bowel obstruction. APPENDIX: No identified. No definite inflammatory changes in the region. PERITONEUM: No free air. No free fluid. REPRODUCTIVE ORGANS: Unremarkable. BLADDER: Unremarkable. BONES/SOFT TISSUES: No acute abnormality. OTHER: Approximately 1.5 cm calcific density in the perianal region is unchanged from prior, uncertain if this is related to prior procedure or surgery, or incidental calcification. CT/CTA Chst, Abd, Pel W and/or WO IMPRESSION: 1. No thoracic or abdominal aortic aneurysm or dissection. 2. No evidence of large central pulmonary emboli, but otherwise limited for PE. 3. Suggestion of wall thickening descending colon. Acute colitis versus nondistention. 4. Common bile duct is not significantly dilated but is increased compared to prior study. Ultrasound and/or laboratory correlation may be helpful. Cholecystectomy. Electronically Signed: Milvia Crowley MD at 3:16 EDT ,
--- NOTE | 2022-09-25 02:01 | EDS_ITS ---
HPI History of Present Illness Chief Complaint: Chest Pain Informant: patient Onset/Context/Timing Onset: Today Narrative Narrative: Patient presents with an episode of generalized pain and diaphoresis. He states he was resting at home when he got sudden severe pain all over his body. He reportedly yelled out to his family and was diaphoretic. Family reported to EMS that he had a glazed look. At this time patient is alert and appropriate and states he does not really remember what happened. He complains of pain to the left side of his body. Patient was admitted recently with a syncopal episode and chest pain. He had a heart cath performed at that time that revealed no acute blockages. He is currently wearing a 30-day event monitor. [facility] Medical History CAD (coronary artery disease) Cannabis use disorder Dyslipidemia Hydradenitis Hyperlipidemia Hypertension Obesity Seizure Stroke Syncope Tobacco use Home Medications cholecalciferol (vitamin D3) 125 mcg (5,000 unit) capsule 10,000 unit DAILY 04/12/22 [History Last Taken Unknown] folic acid 1 mg tablet 1 mg PO DAILY #30 tabs 04/12/22 [Rx Last Taken Unknown] pyridoxine (vitamin B6) 100 mg tablet 100 mg PO DAILY #30 tabs 04/12/22 [Rx Last Taken Unknown] nystatin 100,000 unit/gram topical powder (Nyamyc) 100,000 unit topical DAILY 04/27/22 [History Last Taken Unknown] aspirin 81 mg chewable tablet 81 mg PO BREAKFAST #0 tabs 04/28/22 [Rx Last Taken Unknown] atorvastatin 40 mg tablet 40 mg PO DAILY #30 tabs 04/28/22 [Rx Last Taken Unknown] clopidogrel 75 mg tablet 75 mg PO DAILY #30 tabs 04/28/22 [Rx Last Taken Unknown] levetiracetam 500 mg tablet 500 mg PO BID #60 tabs 04/28/22 [Rx Last Taken Unknown] nitroglycerin 0.4 mg sublingual tablet 0.4 mg sublingual PRN PRN CP #10 tabs 04/28/22 [Rx Last Taken Unknown] potassium chloride 20 mEq tablet,extended release(part/cryst) 20 meq PO DAILY #30 tabs 04/28/22 [Rx Last Taken Unknown] docusate sodium 100 mg capsule (Colace) 100 mg PO BID PRN constipation #30 caps 05/17/22 [Rx Last Taken Unknown] hydrocortisone acetate 25 mg rectal suppository (Anusol-HC) 25 mg IA DAILY 14 days #24 ea 05/17/22 [Rx Last Taken Unknown] quetiapine 100 mg tablet 100 mg PO QHS 05/17/22 [History Last Taken Unknown] trazodone 100 mg tablet 100 mg PO QHS 05/17/22 [History Last Taken Unknown] amlodipine 2.5 mg tablet 2.5 mg PO DAILY 30 days #30 tabs 08/23/22 [Rx Last Taken Unknown] carvedilol 6.25 mg tablet 3.125 mg (1/2 x 6.25 mg) PO BID 30 days #60 tabs 08/23/22 [Rx Last Taken Unknown] lisinopril 2.5 mg tablet 2.5 mg PO DAILY 30 days #30 tabs 08/23/22 [Rx Last Taken Unknown] Allergy/AdvReac Type Severity Reaction Status Date / Time No Known Allergies Allergy Verified 09/25/22 00:55 Family History Mother Hypertension Diabetes Aunt Diabetes Surgical History H/O heart artery stent Hx of cholecystectomy Social History household members: family Smoking Status: Former smoker how long ago did patient quit smoking: Quit ~ 2 wks prior to presentation, intermittent Black & Milds since teen. alcohol intake: current alcohol intake frequency: holidays/special occasions only substance use type: marijuana ROS ROS ED Constitutional Constitutional ED: Denies chills or fever(s) Eyes Eyes: Denies change in vision ENT ENT ED: Denies rhinorrhea or sore throat Cardiovascular Cardiovascular: Reports chest pain Respiratory/Chest Respiratory/Chest: Denies cough or dyspnea Gastrointestinal Gastrointestinal: Reports abdominal pain; Denies vomiting Musculoskeletal Musculoskeletal: Reports other Details: Left-sided pain Integumentary Denies rash Neurologic Neurologic: Denies headache(s) Psychiatric Psychiatric: Denies depression Allergic/Immunologic Allergic/Immunologic ED: Denies mouth swelling or tongue swelling EXAM Physical Exam Const Vital Signs: 09/25/22 00:55 09/25/22 01:02 Temperature 97.6 F L Temperature Source Oral Pulse Rate 56 L Respiratory Rate 18 Respiratory Effort Normal Non-Labored Blood Pressure 113/79 Blood Pressure Mean 90 Pulse Ox 100 Oxygen Delivery Method Room Air Positive well nourished and well developed General Appearance ED: well developed HEENT Reports dry mucous membranes Mouth ED: Yes dry mucous membranes Mouth: dry mucous membranes Eyes EOMs intact bilaterally Chest Wall palpation of chest normal Chest Narrative: Event monitor noted on patient's anterior chest wall. Resp normal respiratory effort and clear to auscultation bilaterally Cardio regular rhythm Rate: bradycardia GI non-tender Palpation: soft Extremity Extremity Narrative: Bilateral 3+ lower extremity edema, symmetric Neuro Neuro Narrative: Patient alert and answers questions appropriately. Psych mental status grossly normal MDM MDM MDM Narrative Medical decision making narrative: Patient placed on youth nutritional monitor. IV line established. Patient's recent hospitalization is reviewed. Labwork obtained to evaluate for leukocytosis, anemia, and electrolyte derangement. EKG obtained to evaluate for cardiac arrhythmia/ischemia. Given the patient had pain through his chest and abdomen and now has left-sided pain CTA of the chest, abdomen, and pelvis is obtained to rule out aortic dissection. History & Record Review Discussion w/independent historian: EMS personnel and Patient Additional record(s) reviewed:: Prior inpatient record, Prior ED visit and Prior labs Lab Data Attestation: I reviewed the patient's lab results. Labs: Laboratory Results - last 24 hr 09/25/22 09/25/22 01:18 03:29 WBC 10.3 RBC 3.77 L Hgb 12.1 L Hct 37.0 L MCV 98.1 H MCH 32.1 H MCHC 32.7 RDW Std Deviation 47.6 H RDW Coeff of Subhash 13.3 Plt Count 247 MPV 9.8 Immature Gran % (Auto) 0.400 Neut % (Auto) 52.4 Lymph % (Auto) 38.3 [place] % (Auto) 7.7 Eos % (Auto) 0.9 Baso % (Auto) 0.3 Absolute Neuts (auto) 5.4 Absolute Lymphs (auto) 3.95 Nucleated RBC % 0 Sodium 140 Potassium 3.7 Chloride 107 Carbon Dioxide 29.0 Anion Gap 4 L BUN 14 Creatinine 1.05 Estim Creat Clear Calc 79.68 Est GFR (MDRD) Af Amer 93 Est GFR (MDRD) Non-Af 77 BUN/Creatinine Ratio 13.3 Glucose 92 Calcium 9.1 Total Bilirubin 0.50 Direct Bilirubin 0.18 AST 14 L ALT 26 Alkaline Phosphatase 103 Troponin I High Sens 54 62 Total Protein 8.1 Albumin 3.6 Globulin 4.5 H Lipase 74 Radiography Diagnostic Testing: Clinical Impression(s) from Imaging Studies Chest/Abdomen/Pelvis CTA 09/25/22 01:45 IMPRESSION: 1. No thoracic or abdominal aortic aneurysm or dissection. 2. No evidence of large central pulmonary emboli, but otherwise limited for PE. 3. Suggestion of wall thickening descending colon. Acute colitis versus nondistention. 4. Common bile duct is not significantly dilated but is increased compared to prior study. Ultrasound and/or laboratory correlation may be helpful. Cholecystectomy. Electronically Signed: Milvia Crowley MD at 3:16 EDT , EKG Initial EKG: Attestation: I personally reviewed and interpreted this EKG as follows: Interpretation: Sinus Bradycardia (Sinus bradycardia at 57 bpm. No acute ischemia.) Treatment and Re-Evaluation :: CBC was normal white count at 10.3 with a hemoglobin of 12.1. This is actually improved when compared to his most recent labs. Chemistry studies reveal normal potassium and normal renal function. LFTs and lipase are normal. Initial troponin is 54 with 2-hour delta 62. CTA of the chest, abdomen, and pelvis reveals no evidence of aortic aneurysm or dissection. There are no large central pulmonary emboli noted. Patient's vital signs have remained stable. On repeat evaluation patient is sleeping comfortably and easily awakens. He does feel improved. Patient's son did call in and speak with nursing staff. Apparently the patient is out of some of his medications. When I asked the patient about this he does verify that he is out of some of his medication, but does not know which ones. He states that he can call Dr. Stubbs's office on Monday with the medications that he needs refills on. When I specifically asked if he was out of his Keppra he is unsure if this may be 1 that he is missing. Patient is wearing a 30-day event monitor. He states he still has another week or 2 left before sending this in. I specifically went and looked at the patient's youth nutritional monitor from his entire stay and other than bradycardia has not had any arrhythmias here. Patient be discharged home. Return instructions are given. Discharge Plan Triage Chief Complaint: Chest Pain Other Complaint: General Illness ED Provider: Loly Real Dx/Rx/DC Orders Clinical Impression: Chest pain Instructions: ED Chest Pain, Uncertain Cause Prescriptions: No Action cholecalciferol (vitamin D3) 125 mcg (5,000 unit) capsule 10,000 unit DAILY Patient Comments: take 2 capsules by mouth once daily folic acid 1 mg tablet 1 mg PO DAILY Qty: 30 0RF pyridoxine (vitamin B6) 100 mg tablet 100 mg PO DAILY Qty: 30 0RF nystatin [Nyamyc] 100,000 unit/gram powder 100,000 unit TOPICAL DAILY levetiracetam 500 mg Tablet 500 mg PO BID Qty: 60 0RF aspirin 81 mg Tablet,Chewable 81 mg PO BREAKFAST Qty: 0 0RF atorvastatin 40 mg tablet 40 mg PO DAILY Qty: 30 0RF clopidogrel 75 mg tablet 75 mg PO DAILY Qty: 30 0RF potassium chloride 20 mEq tablet,ER particles/crystals 20 meq PO DAILY Qty: 30 0RF Patient Comments: take 1 tablet by mouth once daily nitroglycerin 0.4 mg tablet, sublingual 0.4 mg sublingual PRN PRN (Reason: CP) Qty: 10 0RF quetiapine 100 mg Tablet 100 mg PO QHS trazodone 100 mg Tablet 100 mg PO QHS docusate sodium [Colace] 100 mg capsule 100 mg PO BID PRN (Reason: constipation) Qty: 30 0RF hydrocortisone acetate [Anusol-HC] 25 mg suppository 25 mg IA DAILY 14 Days Qty: 24 1RF carvedilol 6.25 mg tablet 3.125 mg PO BID 30 Days Qty: 60 0RF Rx Instructions: must administer with a meal/food amlodipine 2.5 mg Tablet 2.5 mg PO DAILY 30 Days Qty: 30 0RF lisinopril 2.5 mg Tablet 2.5 mg PO DAILY 30 Days Qty: 30 0RF Primary Care Provider: Care Physician,No Primary Referrals: Jose Stubbs DO [Med Staff - [employer]] - As soon as possible Care Physician,No Primary [Primary Care Provider] - Activity Restrictions/Additional Instructions: As discussed, please call Dr. Stubbs's office on Monday with the medications that you need to have refilled. Disposition Disposition: Home, Self Care
[2022-09-25 03:22] LABS: Reflex Troponin-HS? (from REC) Y
[2022-09-25 03:51] LABS: Troponin-I HS 62 pg/mL (3.0-78.0)
[2022-09-25 04:48] VITALS: BP 116/80; PULSE 60; RESP 13; O2SAT 100
[2022-09-25 06:25] VITALS: BP 125/70; PULSE 62; RESP 14; O2SAT 97
== END 2022-09-25 06:44 | disposition home or self-care (01) ==
PROVIDERS: Emergency Provider Emergency Medicine; Visit Provider Emergency Medicine
DX: R07.9 Chest pain, unspecified (principal); I25.10 Atherosclerotic heart disease of native coronary artery without angina pectoris; F12.90 Cannabis use, unspecified, uncomplicated; Z86.73 Personal history of transient ischemic attack (TIA), and cerebral infarction without residual deficits; Z87.891 Personal history of nicotine dependence; Z95.5 Presence of coronary angioplasty implant and graft
CPT/HCPCS: 71275; 74174; 80048; 80076; 83690; 84484; 85025; 93005; 99285; Q9967; A4216

== ENCOUNTER 2022-10-19 00:27 | Observation (INO) | payer MEDICAID, SELFPAY ==
[2022-10-19] VITALS (17 sets, daily range): BP systolic 108–144; BP diastolic 48–92; PULSE 51–74; RESP 11–18; TEMP 36.1–37.1; O2SAT 93–100; BMI 26.7; BMI 26.4
--- NOTE | 2022-10-19 00:51 | CT_ITS ---
EXAM: CT CERVICAL SPINE WITHOUT INTRAVENOUS CONTRAST CLINICAL INDICATION: Radiculopathy TECHNIQUE: Helically acquired images were obtained of the cervical spine without intravenous contrast. 2D reformatted images were reviewed. This CT exam was performed using one or more of the following dose reduction techniques: automated exposure control, adjustment of the mA and/or kV according to patient size, and/or use of iterative reconstruction technique. RADIATION DOSE: CTDIvol = 21.98 mGy, DLP = 523.71 mGy-cm COMPARISON: No relevant prior studies available. FINDINGS: VERTEBRAE: Anterior cervical fusion at C3 through C5 with anterior plate and screws and bone graft. SOFT TISSUES: Unremarkable. No prevertebral soft tissue swelling. LYMPH NODES: Unremarkable. No cervical adenopathy. LUNG APICES: Unremarkable as visualized. Clear. DISCS/SPINAL CANAL/NEURAL FORAMINA: C2-C3: Mild disc osteophyte complex without spinal stenosis. Mild neural foraminal narrowing bilaterally due to uncovertebral joint and facet osteophytes. C3-C4: Posteriorly projecting osteophytes narrow the canal to 9 mm. Mild facet arthropathy bilaterally. Normal neuroforamina. C4-C5: Posteriorly projecting osteophytes without significant spinal stenosis. Mild neural foraminal narrowing bilaterally due to uncovertebral joint osteophytes. C5-C6: Disc space narrowing with disc osteophyte complex. No significant spinal stenosis. Mild neural foraminal narrowing bilaterally due to uncovertebral joint osteophytes. C6-C7: Prominent right-sided disc osteophyte complex with ossification of the posterior longitudinal ligament. Severe right lateral recess and neural foraminal stenosis. C7-T1: Unremarkable. Disc height is preserved. Normal spinal canal. Normal neuroforamina. CT/Spine Cervical without Contras IMPRESSION: 1. C6-C7 severe right lateral recess and right neural foraminal stenosis due to prominent right-sided disc osteophyte complex and ossification of the posterior longitudinal ligament. 2. Anterior cervical fusion at C3 through C5 with anterior plate and screws and bone graft. 3. C2-C3 mild neural foraminal narrowing bilaterally due to uncovertebral joint and facet osteophytes. 4. C3-C4 mild spinal stenosis due to posteriorly projecting osteophytes. 5. C4-C5 mild bilateral neural foraminal narrowing due to uncovertebral joint osteophytes. No spinal stenosis. 6. C5-C6 mild bilateral neural foraminal narrowing due to uncovertebral joint osteophytes. No spinal stenosis. Electronically Signed: Miles Wallace MD at 2:01 EDT ,
[2022-10-19 01:07] LABS: Absolute Lymphocyte Count 3.45 X10^3/uL (0.83-4.51); Basophil# 0.02 X10^3/uL; Basophil% 0.2 % (0-1); Eosinophil# 0.05 X10^3/uL; Eosinophils% 0.6 % (0-5); Hematocrit 36.3 % (40-54); Hemoglobin 12.1 g/dL (13.0-16.5); Lymphocyte # 3.45 X10^3/ul (0.83-4.51); Lymphocyte % 42.1 % (19-41); Mean Corp Hgb Conc 33.3 g/dL (32-36); Mean Corpuscular Hgb 32.7 pg (27.0-32.0); Mean Corpuscular Volume 98.1 fL (80-94); Mean Platelet Vol. 9.7 fl (6.2-12.0); Monocyte# 0.63 X10^3/uL; Monocyte% 7.7 % (0-10); NRBC Flagged by Analyzer 0 % (0-5); Neutrophil # 4.03 X10^3/uL (2.7-7.7); Neutrophil % 49.2 % (47-70); Platelet Count 237 K/mm3 (150-450); RBC Distribution Width CV 13.5 % (11.6-14.6); RBC Distribution Width SD 48.7 fl (35.1-43.9); White Blood Count 8.2 K/mm3 (4.4-11.0)
[2022-10-19] MEDS: diazePAM 5 MG Tablet PO (01:11)
[2022-10-19 01:21] LABS: Anion Gap 5 (5-15); BUN 13 mg/dL (7-18); BUN/Creat Ratio 14.8 RATIO (10-20); Calcium,Total 8.8 mg/dL (8.5-10.1); Chloride 107 mmol/L (98-107); Creatinine, Serum 0.88 mg/dL (0.70-1.30); EST Glomerular Filtration Rate 94 mL/min (>60); Est Glom Filt Rate - Afr Amer 114 mL/min (>60); Estimated Creatinine Clearance 95.08 ml/min; Glucose 101 mg/dL (74-106); Magnesium 1.9 mg/dL (1.6-2.6); Potassium 3.5 mmol/L (3.5-5.1); Sodium Level 142 mmol/L (136-145)
--- NOTE | 2022-10-19 03:05 | HP.PCM.HOS_ITS ---
HPI - General General Date of Admission: 10/19/22 Date of Service: 10/19/22 Chief Complaint: Weakness HPI Narrative IAD NEWTON, is a 62 M with a significant history of CAD status post stent; multiple cardiac arrest status post resuscitation; hidradenitis suppurativa; seizure disorder; and stroke who presents to the emergency department with sudden onset inability to move his bilateral upper extremities. Ten ( 10) minutes after the above symptoms he was also unable to move his lower extremities. At baseline patient can walk short distances with no aid. However for longer distances patient requires a mobility aid in the form of wheelchair or walker. PFSH Medical History CAD (coronary artery disease) Cannabis use disorder Dyslipidemia Hydradenitis Hyperlipidemia Hypertension Obesity Seizure Stroke Syncope Tobacco use Home Medications cholecalciferol (vitamin D3) 125 mcg (5,000 unit) capsule 10,000 unit PO DAILY 04/12/22 [History Last Taken Unknown] folic acid 1 mg tablet 1 mg PO DAILY #30 tabs 04/12/22 [Rx Last Taken Unknown] pyridoxine (vitamin B6) 100 mg tablet 100 mg PO DAILY #30 tabs 04/12/22 [Rx Last Taken Unknown] nystatin 100,000 unit/gram topical powder (Nyamyc) 100,000 unit topical DAILY 04/27/22 [History Last Taken Unknown] aspirin 81 mg chewable tablet 81 mg PO BREAKFAST #0 tabs 04/28/22 [Rx Last Taken Unknown] atorvastatin 40 mg tablet 40 mg PO DAILY #30 tabs 04/28/22 [Rx Last Taken Unknown] clopidogrel 75 mg tablet 75 mg PO DAILY #30 tabs 04/28/22 [Rx Last Taken Unknown] levetiracetam 500 mg tablet 500 mg PO BID #60 tabs 04/28/22 [Rx Last Taken Unknown] nitroglycerin 0.4 mg sublingual tablet 0.4 mg sublingual PRN PRN CP #10 tabs 04/28/22 [Rx Last Taken Unknown] potassium chloride 20 mEq tablet,extended release(part/cryst) 20 meq PO DAILY #30 tabs 04/28/22 [Rx Last Taken Unknown] docusate sodium 100 mg capsule (Colace) 100 mg PO BID PRN constipation #30 caps 05/17/22 [Rx Last Taken Unknown] hydrocortisone acetate 25 mg rectal suppository (Anusol-HC) 25 mg DE DAILY 14 days #24 ea 05/17/22 [Rx Last Taken Unknown] quetiapine 100 mg tablet 100 mg PO QHS 05/17/22 [History Last Taken Unknown] trazodone 100 mg tablet 100 mg PO QHS 05/17/22 [History Last Taken Unknown] amlodipine 2.5 mg tablet 2.5 mg PO DAILY 30 days #30 tabs 08/23/22 [Rx Last Taken Unknown] carvedilol 6.25 mg tablet 3.125 mg (1/2 x 6.25 mg) PO BID 30 days #60 tabs 08/23/22 [Rx Last Taken Unknown] lisinopril 2.5 mg tablet 2.5 mg PO DAILY 30 days #30 tabs 08/23/22 [Rx Last Taken Unknown] Allergy/AdvReac Type Severity Reaction Status Date / Time No Known Allergies Allergy Verified 10/19/22 00:28 Family History Mother Hypertension Diabetes Aunt Diabetes Surgical History H/O heart artery stent Hx of cholecystectomy Social History household members: family Smoking Status: Former smoker how long ago did patient quit smoking: Quit ~ 2 wks prior to presentation, intermittent Black & Milds since teen. alcohol intake: current alcohol intake frequency: holidays/special occasions only substance use type: marijuana ROS ROS Narrative Pertinent positives and pertinent negatives as noted in HPI. All other systems were reviewed and are negative Vital Signs Vital Signs Vital Signs: 10/19/22 00:28 10/19/22 00:28 10/19/22 01:51 Temperature 96.9 F L Temperature Source Temporal Pulse Rate 68 57 L Respiratory Rate 12 13 Respiratory Pattern Normal Blood Pressure 136/91 H 120/75 Blood Pressure Mean 106 90 Pulse Ox 100 99 Oxygen Delivery Method Room Air Weight Weight: 87 kg Body Mass Index (BMI) 26.7 Physical Exam Narrative Physical exam: General: Well-nourished, well-developed. Head: Normocephalic, atraumatic, no tenderness Eyes: Vision is grossly intact. EOMI ENT: Poor dentition. Loss of multiple teeth. Neck: Nontender, No thyromegaly. CVS: Regular rate and rhythm. S1-S2 present. No murmur, gallop or rub. Respiratory : clear to auscultation bilaterally, chest wall nontender Abdomen: Soft, nontender, nondistended, normal bowel sounds, no masses : Deferred Back: Nontender, no CVA tenderness, no midline spinal tenderness, deformities, step-offs Extremities: Nontender full range of motion, no trauma. Decreased range of motion of all extremities. Skin: Foul-smelling ramos discharge from right armpit. Boils in right armpit. Neuro: Alert, oriented, cranial nerves II through XII grossly intact. Psychiatry: Normal mood. Normal affect. Not depressed. Not anxious. Results Lab / Micro Data 10/19/22 01:00 10/19/22 01:00 Labs: Laboratory Results - last 24 hr 10/19/22 01:00: WBC 8.2, RBC 3.70 L, Hgb 12.1 L, Hct 36.3 L, MCV 98.1 H, MCH 32.7 H, MCHC 33.3, RDW Std Deviation 48.7 H, RDW Coeff of Subhash 13.5, Plt Count 237, MPV 9.7, Immature Gran % (Auto) 0.200, Neut % (Auto) 49.2, Lymph % (Auto) 42.1 H, [place] % (Auto) 7.7, Eos % (Auto) 0.6, Baso % (Auto) 0.2, Absolute Neuts (auto) 4.0, Absolute Lymphs (auto) 3.45, Nucleated RBC % 0, Sodium 142, Potassium 3.5, Chloride 107, Carbon Dioxide 30.0, Anion Gap 5, BUN 13, Creatinine 0.88, Estim Creat Clear Calc 95.08, Est GFR (MDRD) Af Amer 114, Est GFR (MDRD) Non-Af 94, BUN/Creatinine Ratio 14.8, Glucose 101, Calcium 8.8, Magnesium 1.9 Radiology Impression Cervical Spine CT 10/19/22 00:51 IMPRESSION: 1. C6-C7 severe right lateral recess and right neural foraminal stenosis due to prominent right-sided disc osteophyte complex and ossification of the posterior longitudinal ligament. 2. Anterior cervical fusion at C3 through C5 with anterior plate and screws and bone graft. 3. C2-C3 mild neural foraminal narrowing bilaterally due to uncovertebral joint and facet osteophytes. 4. C3-C4 mild spinal stenosis due to posteriorly projecting osteophytes. 5. C4-C5 mild bilateral neural foraminal narrowing due to uncovertebral joint osteophytes. No spinal stenosis. 6. C5-C6 mild bilateral neural foraminal narrowing due to uncovertebral joint osteophytes. No spinal stenosis. Electronically Signed: Miles Wallace MD at 2:01 EDT , Assessment & Plan Assessment/Plan (1) Weakness: (2) Hidradenitis suppurativa: (3) Hidradenitis suppurativa of right axilla: PLAN: Plan Weakness of all extremities Cervical spine CT with severe stenosis. ED doctor discussed case with spinal surgeon. PT and OT to work with patient. Case management consult Hypertension Blood pressure is not within goal Home blood pressure medication continued. Trend blood pressure and adjust blood pressure medications. Hidradenitis suppurativa Start patient on doxycycline DVT prophylaxis SCDs ordered Time spent in the patient's overall evaluation,decision-making process, review of diagnostic data, adjustment of management, discussion with other providers, nursing nursing and ancillary staff involved in patient's care documentation, 70 minutes. Charges/Coding Visit Charges Inpatient E&M: 06912 Init Hosp L3
--- NOTE | 2022-10-19 04:46 | MRI_ITS ---
STUDY: MRI CERVICAL SPINE WITHOUT CONTRAST REASON FOR EXAM: Male, 62 years old. Spinal stenosis/myelomalacia TECHNIQUE: Standardized fat and water weighted pulse sequences were obtained in the sagittal and axial planes. COMPARISON: None FINDINGS: Normal foramen magnum and brainstem-cervical cord junction. Normal craniovertebral junction. Normal anterior atlantoaxial articulation. Normal odontoid process. Decreased cervical lordosis. Normal vertebral bodies and posterior osseous elements. C2-3: Normal endplates. Normal disc height, signal and morphology. Normal central canal. Severe right neural foraminal stenosis secondary to bony hypertrophy. C3-4: Status post anterior fusion. Narrowed disc space with small left paracentral osteophyte protrusion. Mild narrowing of the central canal. Normal intervertebral neural foramina. C4-5: Status post anterior and lateral fusion.. Normal central canal and intervertebral neural foramina. Broad-based hypertrophic spur protrusion mildly narrowing the spinal canal. Normal bilateral intervertebral neural foramina C5-6: Narrowed disc space and minor bulging of the disc. Normal central canal. Mild bilateral neural foraminal stenosis secondary to bony hypertrophy. C6-7: Normal endplates. Normal disc height, signal and prominent right paracentral/ posterolateral. Disc/osteophyte protrusion narrowing the spinal canal and mildly impinging upon the cord on the right. There is severe right neural foraminal stenosis C7-T1: Normal endplates. Normal disc height, signal and morphology. Normal central canal and intervertebral neural foramina. There is relative diffuse flattening of the cord extending from C3-4 to C4-5 demonstrating increased intramedullary signal likely due to myelomalacia secondary to chronic impingement Normal visualized soft tissue structures. MRI/Spine Cervical (Routine) IMPRESSION: No evidence for acute fracture or other significant bony pathology.. Postsurgical changes at C3-4 and C4-5. Spondylosis and multilevel spinal stenosis most severe at C6-7 with associated mild cord compression on the right. Flattened cord demonstrating intramedullary myelomalacia pending from approximately C3-4, to C4-5 disc space Electronically Signed: Jaspreet Luis MD at 16:14 EDT ,
--- NOTE | 2022-10-19 04:48 | EX.ED.DYSGE1 ---
HPI <Dr. Santino Nova, DO - Last Filed: 10/19/22 08:01> History of Present Illness Chief Complaint: Weakness Informant: patient Narrative Narrative: Patient is a 62-year-old male from home with past medical history of cervical spine injury requiring fusion approximately 5 years ago at outside hospital. He also has history of coronary artery disease and hypertension. Patient states he was told that after his cervical spine injury he would never walk again. He states that he has been working hard and now can ambulate 50 steps on his own. He states that last night he was sitting around watching TV when he developed sensation of spasm and pain in his bilateral arms and legs and he had difficulty moving them. Secondary to this he has family to call EMS who then brought him in for evaluation [facility] <Dr. Santino Nova DO - Last Filed: 10/19/22 08:01> [facility] Medical History CAD (coronary artery disease) Cannabis use disorder Dyslipidemia Hydradenitis Hyperlipidemia Hypertension Obesity Seizure Stroke Syncope Tobacco use Home Medications cholecalciferol (vitamin D3) 125 mcg (5,000 unit) capsule 10,000 unit PO DAILY 04/12/22 [History Last Taken Unknown] folic acid 1 mg tablet 1 mg PO DAILY #30 tabs 04/12/22 [Rx Last Taken Unknown] pyridoxine (vitamin B6) 100 mg tablet 100 mg PO DAILY #30 tabs 04/12/22 [Rx Last Taken Unknown] nystatin 100,000 unit/gram topical powder (Nyamyc) 100,000 unit topical DAILY 04/27/22 [History Last Taken Unknown] aspirin 81 mg chewable tablet 81 mg PO BREAKFAST #0 tabs 04/28/22 [Rx Last Taken Unknown] atorvastatin 40 mg tablet 40 mg PO DAILY #30 tabs 04/28/22 [Rx Last Taken Unknown] clopidogrel 75 mg tablet 75 mg PO DAILY #30 tabs 04/28/22 [Rx Last Taken Unknown] levetiracetam 500 mg tablet 500 mg PO BID #60 tabs 04/28/22 [Rx Last Taken Unknown] nitroglycerin 0.4 mg sublingual tablet 0.4 mg sublingual PRN PRN CP #10 tabs 04/28/22 [Rx Last Taken Unknown] potassium chloride 20 mEq tablet,extended release(part/cryst) 20 meq PO DAILY #30 tabs 04/28/22 [Rx Last Taken Unknown] docusate sodium 100 mg capsule (Colace) 100 mg PO BID PRN constipation #30 caps 05/17/22 [Rx Last Taken Unknown] hydrocortisone acetate 25 mg rectal suppository (Anusol-HC) 25 mg MD DAILY 14 days #24 ea 05/17/22 [Rx Last Taken Unknown] quetiapine 100 mg tablet 100 mg PO QHS 05/17/22 [History Last Taken Unknown] trazodone 100 mg tablet 100 mg PO QHS 05/17/22 [History Last Taken Unknown] amlodipine 2.5 mg tablet 2.5 mg PO DAILY 30 days #30 tabs 08/23/22 [Rx Last Taken Unknown] carvedilol 6.25 mg tablet 3.125 mg (1/2 x 6.25 mg) PO BID 30 days #60 tabs 08/23/22 [Rx Last Taken Unknown] lisinopril 2.5 mg tablet 2.5 mg PO DAILY 30 days #30 tabs 08/23/22 [Rx Last Taken Unknown] Allergy/AdvReac Type Severity Reaction Status Date / Time No Known Allergies Allergy Verified 10/19/22 00:28 Family History Mother Hypertension Diabetes Aunt Diabetes Surgical History H/O heart artery stent Hx of cholecystectomy Social History household members: family Smoking Status: Former smoker how long ago did patient quit smoking: Quit ~ 2 wks prior to presentation, intermittent Black & Milds since teen. alcohol intake: current alcohol intake frequency: holidays/special occasions only substance use type: marijuana ROS <Dr. Santino Nova, DO - Last Filed: 10/19/22 08:01> ROS ED Constitutional Constitutional ED: Denies chills or fever(s) Eyes Eyes: Denies change in vision ENT ENT ED: Denies sore throat Cardiovascular Cardiovascular: Denies chest pain Respiratory/Chest Respiratory/Chest: Denies cough or dyspnea Gastrointestinal Gastrointestinal: Denies abdominal pain, diarrhea, nausea or vomiting Genitourinary Genitourinary ED: Denies dysuria Musculoskeletal Musculoskeletal: Reports back pain and myalgias Integumentary Denies rash Neurologic Neurologic: Reports weakness; Denies headache(s) Hematologic/Lymphatic Hematologic/Lymphatic: Denies easy bleeding or easy bruising EXAM <Dr. Santino Nova, DO - Last Filed: 10/19/22 08:01> Physical Exam Const Vital Signs: 10/19/22 00:28 10/19/22 00:28 10/19/22 01:51 Temperature 96.9 F L Temperature Source Temporal Pulse Rate 68 57 L Respiratory Rate 12 13 Respiratory Pattern Normal Blood Pressure 136/91 H 120/75 Blood Pressure Mean 106 90 Pulse Ox 100 99 Oxygen Delivery Method Room Air 10/19/22 03:00 10/19/22 04:42 Temperature Temperature Source Pulse Rate 60 55 L Respiratory Rate 11 L 15 Respiratory Pattern Blood Pressure 137/56 H 135/74 H Blood Pressure Mean 83 94 Pulse Ox 100 100 Oxygen Delivery Method Room Air Room Air Positive well nourished and well developed General Appearance ED: well developed HEENT Reports moist mucous membranes Eyes PERRL and EOMs intact bilaterally General Eye ED: Negative for scleral icterus Neck supple Neck Narrative: No nuchal rigidity noted Resp normal respiratory effort and clear to auscultation bilaterally Cardio regular rate and regular rhythm Rate: other Other Details: Radial and carotid pulses equal and symmetric GI normal to inspection, nondistended, normoactive bowel sounds, non-tender, non-distended and no masses GI Narrative: No voluntary guarding or rigidity no pulsatile mass or fluid wave Auscultation: normoactive bowel sounds Palpation: soft Back/Spine Back/Spine Narrative: No saddle anesthesia. Negative straight leg raise. Patellar reflexes are plus 1 out of 4 bilaterally. Patient does have approximate 1-1/2 beats of clonus of the left foot and none noted on the right. Extremity Extremity Narrative: Bilateral upper extremities are neurovascular intact. The patient's fingers/hands are held in a contractured position. However when asked he can extend fingers although range of motion is decreased. He is also able to slightly elevate both arms off the bed. No obvious bony deformity or joint effusion. No overlying soft tissue changes to suggest infection. No firmness to his compartments going against compartment syndrome Neuro oriented x3 and CN's II-XII intact bilaterally Sensorium / Orientation: alert Motor Exam: general weakness Psych Psych Narrative: Patient has a flat affect Skin no rashes or lesions noted <Dr. Jeffrey Maldonado, DO - Last Filed: 10/19/22 15:10> Physical Exam Const Vital Signs: 10/19/22 00:28 10/19/22 00:28 10/19/22 01:51 Temperature 96.9 F L Temperature Source Temporal Pulse Rate 68 57 L Respiratory Rate 12 13 Respiratory Pattern Normal Blood Pressure 136/91 H 120/75 Blood Pressure Mean 106 90 Pulse Ox 100 99 Oxygen Delivery Method Room Air 10/19/22 03:00 10/19/22 04:42 Temperature Temperature Source Pulse Rate 60 55 L Respiratory Rate 11 L 15 Respiratory Pattern Blood Pressure 137/56 H 135/74 H Blood Pressure Mean 83 94 Pulse Ox 100 100 Oxygen Delivery Method Room Air Room Air MDM <Dr. Santino Nova, DO - Last Filed: 10/19/22 08:01> MDM MDM Narrative Medical decision making narrative: Patient presented to the ER with stable vitals and reported increased weakness as well as spasms of both arms and legs. He states he has a history of chronic neck injury and weakness but that this is new for him. With the contractures there is concern that this could be due to electrolyte abnormality so therefore basic labs were obtained. This showed no acute findings. CT of the cervical spine was obtained which shows severe right lateral recess and neuroforaminal stenosis at C6-C7. However based on his history it is expected that there is potential for myelomalacia causing his symptoms. At this time he has no overt signs of infection no electrolyte abnormalities no signs of acute CVA or spinal cord infarction. However because of his weakness he is not able to care for himself and will need admitted to the hospital. Secondary to this the case was discussed with the hospitalist. Based on the possibility that he will require neurosurgical intervention the case was also discussed with orthopedic spine surgery on-call. They request that an MRI be obtained for further diagnostic accuracy and will evaluate the patient in the hospital. History & Record Review Discussion w/independent historian: EMS personnel and Patient Lab Data Attestation: I reviewed the patient's lab results. Labs: Laboratory Results - last 24 hr 10/19/22 01:00 WBC 8.2 RBC 3.70 L Hgb 12.1 L Hct 36.3 L MCV 98.1 H MCH 32.7 H MCHC 33.3 RDW Std Deviation 48.7 H RDW Coeff of Subhash 13.5 Plt Count 237 MPV 9.7 Immature Gran % (Auto) 0.200 Neut % (Auto) 49.2 Lymph % (Auto) 42.1 H Dane % (Auto) 7.7 Eos % (Auto) 0.6 Baso % (Auto) 0.2 Absolute Neuts (auto) 4.0 Absolute Lymphs (auto) 3.45 Nucleated RBC % 0 Sodium 142 Potassium 3.5 Chloride 107 Carbon Dioxide 30.0 Anion Gap 5 BUN 13 Creatinine 0.88 Estim Creat Clear Calc 95.08 Est GFR (MDRD) Af Amer 114 Est GFR (MDRD) Non-Af 94 BUN/Creatinine Ratio 14.8 Glucose 101 Calcium 8.8 Magnesium 1.9 Radiography Diagnostic Testing: Clinical Impression(s) from Imaging Studies Cervical Spine CT 10/19/22 00:51 IMPRESSION: 1. C6-C7 severe right lateral recess and right neural foraminal stenosis due to prominent right-sided disc osteophyte complex and ossification of the posterior longitudinal ligament. 2. Anterior cervical fusion at C3 through C5 with anterior plate and screws and bone graft. 3. C2-C3 mild neural foraminal narrowing bilaterally due to uncovertebral joint and facet osteophytes. 4. C3-C4 mild spinal stenosis due to posteriorly projecting osteophytes. 5. C4-C5 mild bilateral neural foraminal narrowing due to uncovertebral joint osteophytes. No spinal stenosis. 6. C5-C6 mild bilateral neural foraminal narrowing due to uncovertebral joint osteophytes. No spinal stenosis. Electronically Signed: Miles Wallace MD at 2:01 EDT , Management Discussion w/another healthcare provider: Hospitalist and [employer] <Dr. Jeffrey Maldonado, DO - Last Filed: 10/19/22 15:10> [facility] Lab Data Labs: Laboratory Results - last 24 hr 10/19/22 01:00 WBC 8.2 RBC 3.70 L Hgb 12.1 L Hct 36.3 L MCV 98.1 H MCH 32.7 H MCHC 33.3 RDW Std Deviation 48.7 H RDW Coeff of Subhash 13.5 Plt Count 237 MPV 9.7 Immature Gran % (Auto) 0.200 Neut % (Auto) 49.2 Lymph % (Auto) 42.1 H Dane % (Auto) 7.7 Eos % (Auto) 0.6 Baso % (Auto) 0.2 Absolute Neuts (auto) 4.0 Absolute Lymphs (auto) 3.45 Nucleated RBC % 0 Sodium 142 Potassium 3.5 Chloride 107 Carbon Dioxide 30.0 Anion Gap 5 BUN 13 Creatinine 0.88 Estim Creat Clear Calc 95.08 Est GFR (MDRD) Af Amer 114 Est GFR (MDRD) Non-Af 94 BUN/Creatinine Ratio 14.8 Glucose 101 Calcium 8.8 Magnesium 1.9 Radiography Diagnostic Testing: Clinical Impression(s) from Imaging Studies Cervical Spine CT 10/19/22 00:51 IMPRESSION: 1. C6-C7 severe right lateral recess and right neural foraminal stenosis due to prominent right-sided disc osteophyte complex and ossification of the posterior longitudinal ligament. 2. Anterior cervical fusion at C3 through C5 with anterior plate and screws and bone graft. 3. C2-C3 mild neural foraminal narrowing bilaterally due to uncovertebral joint and facet osteophytes. 4. C3-C4 mild spinal stenosis due to posteriorly projecting osteophytes. 5. C4-C5 mild bilateral neural foraminal narrowing due to uncovertebral joint osteophytes. No spinal stenosis. 6. C5-C6 mild bilateral neural foraminal narrowing due to uncovertebral joint osteophytes. No spinal stenosis. Electronically Signed: Miles Wallace MD at 2:01 EDT , Treatment and Re-Evaluation :: Signed out to me at 7:[address] Nova awaiting MRI to rule out any acute spinal pathology. Also awaiting final evaluation by spine surgery Dr. Turner. Patient is still awaiting MRI. While in the MRI suite patient had acute onset of severe body wide pain. This was treated with 2 mg IV Ativan with resolution in pain. Is currently undergoing imaging. We will sign out to p.m. physician pending MRI results, orthopedic spine consult, final disposition. Discharge Plan Dx/Rx/DC Orders Clinical Impression: Spinal stenosis, Weakness, Hypertension Disposition Disposition: [facility]
--- NOTE | 2022-10-19 06:50 | NURSING ---
308 OBS AGYEPONG MYELOMALACIA WITH SPINAL STENOSIS
--- NOTE | 2022-10-19 08:07 | MRI_ITS ---
STUDY: MRI LUMBAR SPINE WITHOUT CONTRAST REASON FOR EXAM: Male, 62 years old. Spinal stenosis/myelomalacia TECHNIQUE: Standardized fat and water weighted pulse sequences were obtained in the sagittal and axial planes. COMPARISON: None FINDINGS: T12-L1: Normal endplates. Normal disc height, hydration and morphology. Normal bilateral facet joints. Normal central canal and bilateral lateral recesses. Normal bilateral intervertebral neural foramina. Normal lumbar lordosis. There is no substantial scoliosis. Normal conus medullaris that terminates at T12 L1-2: Normal endplates. Normal disc height hydration and morphology. Normal facet joints. Normal central canal and bilateral lateral recesses. Normal intervertebral neural foramina L2-3:: Normal endplates. Normal disc height, desiccation and minimal annular bulge.. Mild facet arthropathy and thickening of ligamenta flava. Mild narrowing of the central canal exaggerated by posterior epidural fat.. Mild narrowing of the lateral recesses. Mild bilateral neural foraminal stenosis . L3-4: Normal endplates. Normal disc height, desiccation mild annular bulge. Mild facet arthropathy and thickening of ligamenta flava.. Mild narrowing the central canal and bilateral lateral recesses. Severe bilateral neural foraminal stenosis. L4-5: Normal endplates. Normal disc height, desiccation mild annular bulge.. Facet arthropathy and thickening of ligamenta flava.. Mild narrowing central canal exaggerated by posterior epidural fat. Mild bilateral lateral recess stenosis and severe neural foraminal stenosis exaggerated by shortened pedicles. L5-S1: Normal endplates. Normal disc height, desiccation and mild annular bulge with small central disc protrusion.. Mild facet arthropathy. Normal central canal and bilateral lateral recesses. Severe bilateral neural foraminal stenosis exaggerated by shortened pedicles. Normal visualized sacral ala. Normal visualized paraspinous soft tissue structures. MRI/Spine Lumbar (Routine) IMPRESSION: No evidence for acute fracture or other significant bony pathology. Spondylosis and multilevel spinal stenosis secondary to Graves'' disease facet arthropathy and thickening of ligamenta flava exaggerated by shortened pedicles Findings as above Electronically Signed: Jaspreet Luis MD at 16:47 EDT ,
--- NOTE | 2022-10-19 08:07 | MRI_ITS ---
STUDY: MRI THORACIC SPINE WITHOUT CONTRAST REASON FOR EXAM: Male, 62 years old. Spinal stenosis/myelomalacia TECHNIQUE: Standardized fat and water weighted pulse sequences were obtained in the sagittal and axial planes. COMPARISON: None. FINDINGS: Limited study due to artifact. Normal kyphosis of the thoracic spine. There is no substantial scoliosis. T1-2, T2-3, T3-4, T4-5, T5-6, T6-7, T7-8, T8-9, T9-10, T10-11, T11-12: Normal endplates. Normal disc hydration, heights and morphology of the corresponding intervertebral discs. Normal central canal and intervertebral neural foramina at the corresponding levels. Limited study of the spinal cord due to artifact. Cannot definitively exclude small segmental syrinx of the distal cord at approximately T9-10 possibly artifactual Normal conus medullaris that terminates at T12-L1 The soft tissue structures are unremarkable. MRI/Spine Thoracic (Routine) IMPRESSION: No acute fracture or other significant bony pathology. No significant disc protrusion spinal stenosis or cord compression Cannot definitively exclude small segmental syrinx of the cord at approximately T9-10 possibly artifactual Limited repeat study with contrast would be helpful for further evaluation if clinically warranted Electronically Signed: Jaspreet Luis MD at 16:39 EDT ,
[2022-10-19] MEDS: LORazepam 2 MG/ML Syringe IV (14:56)
--- NOTE | 2022-10-19 16:25 | RAD_ITS ---
STUDY: X-RAY - LUMBAR SPINE REASON FOR EXAM: Male, 62 years old. pain TECHNIQUE: 3 view(s) of the lumbar spine were obtained. COMPARISON: None FINDINGS: Normal lumbar lordosis. There is no substantial scoliosis. There is a normal alignment of the vertebrae. No evidence for acute fracture or subluxation.. Disc space heights were obtained of the caudate multilevel endplate spurring. The soft tissue structures are unremarkable. RAD/Lumbar Spine 2 or 3 Views IMPRESSION: Mild spondylosis. No acute fracture or other significant bony pathology Electronically Signed: Jaspreet Luis MD at 17:27 EDT ,
--- NOTE | 2022-10-19 16:25 | RAD_ITS ---
STUDY: X-RAY - CERVICAL SPINE REASON FOR EXAM: Male, 62 years old. pain -- Please obtain an AP lateral and odontoid views TECHNIQUE: 4 view(s) of the cervical spine were obtained. COMPARISON: None FINDINGS: Normal anterior atlantoaxial articulation. Normal odontoid process. Decreased cervical lordosis. No evidence for acute fracture or subluxation. Narrowed C5-6 and C6-7 disc space with endplate spurring Postsurgical changes status post cervical fusion at C3-4 and C4-5 The soft tissue structures are unremarkable. RAD/Cerv Spine 2 or 3 Views IMPRESSION: Spondylosis and postsurgical change. No acute fracture. Electronically Signed: Jaspreet Luis MD at 17:48 EDT ,
--- NOTE | 2022-10-19 17:09 | PCM.HOSP.N ---
Hospitalist Note MRIs of the cervical, thoracic, and lumbar spine obtained at the request of the admitting physician overnight. These have been reviewed now by orthopedic surgery and they indicate there is no surgical intervention and the findings on the cervical spine are related to his previous intervention. He recommended admission for physical and Occupational Therapy and would place a note on the chart documenting his surgical opinion. Patient will be admitted to the medical floor.
--- NOTE | 2022-10-19 17:46 | ED.RN ---
Attempted to call son, unable make contact.
[2022-10-19] MEDS: levETIRAcetam 500 MG Tablet PO (20:20)
[2022-10-19] MEDS: Aspirin 81 MG TAB.CHEW PO (20:20)
[2022-10-19] MEDS: Folic Acid 1 MG Tablet PO (20:20)
[2022-10-19] MEDS: Pyridoxine HCl 100 MG Tablet PO (20:20)
[2022-10-19] MEDS: Clopidogrel Bisulfate 75 MG Tablet PO (20:20)
[2022-10-19] MEDS: Lisinopril 2.5 MG Tablet PO (20:20)
[2022-10-19] MEDS: Potassium Chloride Oral Tablet 20 MEQ PO (20:20)
[2022-10-19] MEDS: Cholecalciferol (Vit D3) 125 MCG CAPSULE (5,000 UNITS) PO (20:20)
[2022-10-19] MEDS: amLODIPine 2.5 MG Tablet PO (20:20)
[2022-10-19] MEDS: Nystatin Powder 15gm Bottle 1 APPLIC TOPICAL (20:21)
[2022-10-19] MEDS: 0.9% Saline Lock 10 ML Syringe IV (20:21)
[2022-10-19] MEDS: Acetaminophen 500 MG Tablet 1000 MG PO (22:07)
[2022-10-19] MEDS: Atorvastatin Calcium 40 MG Tablet PO (22:07)
[2022-10-19] MEDS: traZODone 100 MG Tablet PO (22:07)
[2022-10-19] MEDS: QUEtiapine 100 MG Tablet PO (22:07)
[2022-10-20 05:39] VITALS: BP 146/98; PULSE 50; RESP 18; TEMP 36.8; O2SAT 99
[2022-10-20] MEDS: Acetaminophen 500 MG Tablet 1000 MG PO ×3 (05:45→23:03)
[2022-10-20 06:40] LABS: Absolute Lymphocyte Count 3.47 X10^3/uL (0.83-4.51); Absolute Neutrophil Count 2.7 X10^3/uL (2.0-7.7); Basophil# 0.03 X10^3/uL; Basophil% 0.4 % (0-1); Eosinophil# 0.08 X10^3/uL; Eosinophils% 1.2 % (0-5); Hematocrit 35.9 % (40-54); Hemoglobin 11.7 g/dL (13.0-16.5); Lymphocyte # 3.47 X10^3/ul (0.83-4.51); Lymphocyte % 50.8 % (19-41); Mean Corp Hgb Conc 32.6 g/dL (32-36); Mean Corpuscular Hgb 32.1 pg (27.0-32.0); Mean Corpuscular Volume 98.6 fL (80-94); Monocyte# 0.49 X10^3/uL; Monocyte% 7.2 % (0-10); NRBC Flagged by Analyzer 0 % (0-5); Neutrophil # 2.74 X10^3/uL (2.7-7.7); Neutrophil % 40.1 % (47-70); Platelet Count 237 K/mm3 (150-450); RBC Distribution Width CV 13.4 % (11.6-14.6); Red Blood Count 3.64 M/mm3 (4.6-6.2); White Blood Count 6.8 K/mm3 (4.4-11.0)
[2022-10-20 07:57] LABS: ALB/GLOB Ratio 0.8 RATIO (0.9-2.4); AST(SGOT) 16 U/L (15-37); Alanine Aminotransfer ALT/SGPT 17 U/L (16-61); Albumin, Serum 3.1 g/dL (3.2-5.0); Alkaline Phosphatase 90 U/L (45-117); Anion Gap 4 (5-15); BUN 8 mg/dL (7-18); BUN/Creat Ratio 10.3 RATIO (10-20); Calcium,Total 8.7 mg/dL (8.5-10.1); Chloride 112 mmol/L (98-107); Creatinine, Serum 0.78 mg/dL (0.70-1.30); EST Glomerular Filtration Rate 108 mL/min (>60); Est Glom Filt Rate - Afr Amer 131 mL/min (>60); Estimated Creatinine Clearance 107.26 ml/min; Glucose 82 mg/dL (74-106); Magnesium 2.1 mg/dL (1.6-2.6); Potassium 3.1 mmol/L (3.5-5.1); Protein, Total 7.1 g/dL (6.4-8.2); Sodium Level 144 mmol/L (136-145); Thyroid Stim Hormone (TSH) 1.91 uIU/mL (0.358-3.74)
--- NOTE | 2022-10-20 09:13 | PCM.PN.HOSP ---
Subjective Subjective Doing well, no issues overnight Objective Data Objective Data Vital Signs: Vital Signs Temp Pulse Resp BP Pulse Ox O2 Del Method 98.3 F 50 L 18 146/98 H 99 Room Air 10/20/22 05:39 10/20/22 05:39 10/20/22 05:39 10/20/22 05:39 10/20/22 05:39 10/20/22 05:39 Oxygen Delivery Method Room Air Weight: 189 lb 13.088 oz Body Mass Index (BMI) 26.4 Intake & Output: Intake and Output for Last 24 Hours 10/19/22 10/20/22 10/21/22 03:59 03:59 03:59 Intake Total 560 / 560 200 / 200 Output Total 300 / 300 500 / 500 Balance 260 / 260 -300 / -300 Lab / Micro Data 10/20/22 06:05 10/20/22 06:05 Labs: Laboratory Results - last 24 hr 10/20/22 06:05: WBC 6.8, RBC 3.64 L, Hgb 11.7 L, Hct 35.9 L, MCV 98.6 H, MCH 32.1 H, MCHC 32.6, RDW Std Deviation 48.0 H, RDW Coeff of Subhash 13.4, Plt Count 237, MPV 10.0, Immature Gran % (Auto) 0.300, Neut % (Auto) 40.1 L, Lymph % (Auto) 50.8 H, Pratt % (Auto) 7.2, Eos % (Auto) 1.2, Baso % (Auto) 0.4, Absolute Neuts (auto) 2.7, Absolute Lymphs (auto) 3.47, Nucleated RBC % 0, Sodium 144, Potassium 3.1 L, Chloride 112 H, Carbon Dioxide 28.0, Anion Gap 4 L, BUN 8, Creatinine 0.78, Estim Creat Clear Calc 107.26, Est GFR (MDRD) Af Amer 131, Est GFR (MDRD) Non-Af 108, BUN/Creatinine Ratio 10.3, Glucose 82, Calcium 8.7, Phosphorus 3.0, Magnesium 2.1, Total Bilirubin 0.60, AST 16, ALT 17, Alkaline Phosphatase 90, Total Protein 7.1, Albumin 3.1 L, Globulin 4.0, Albumin/Globulin Ratio 0.8 L, TSH 1.91 Radiography Diagnostic Testing: Radiology Impression Cervical Spine MRI 10/19/22 04:46 IMPRESSION: No evidence for acute fracture or other significant bony pathology.. Postsurgical changes at C3-4 and C4-5. Spondylosis and multilevel spinal stenosis most severe at C6-7 with associated mild cord compression on the right. Flattened cord demonstrating intramedullary myelomalacia pending from approximately C3-4, to C4-5 disc space Electronically Signed: Jaspreet Luis MD at 16:14 EDT , Lumbar Spine MRI 10/19/22 08:07 IMPRESSION: No evidence for acute fracture or other significant bony pathology. Spondylosis and multilevel spinal stenosis secondary to Graves'' disease facet arthropathy and thickening of ligamenta flava exaggerated by shortened pedicles Findings as above Electronically Signed: Jaspreet Luis MD at 16:47 EDT , Thoracic Spine MRI 10/19/22 08:07 IMPRESSION: No acute fracture or other significant bony pathology. No significant disc protrusion spinal stenosis or cord compression Cannot definitively exclude small segmental syrinx of the cord at approximately T9-10 possibly artifactual Limited repeat study with contrast would be helpful for further evaluation if clinically warranted Electronically Signed: Jaspreet Luis MD at 16:39 EDT , Cervical Spine X-Ray 10/19/22 16:25 IMPRESSION: Spondylosis and postsurgical change. No acute fracture. Electronically Signed: Jaspreet Luis MD at 17:48 EDT , Lumbar Spine X-Ray 10/19/22 16:25 IMPRESSION: Mild spondylosis. No acute fracture or other significant bony pathology Electronically Signed: Jaspreet Luis MD at 17:27 EDT Reading Location ID and State: [id number] / [place] , Service support , Physical Exam Narrative General: Alert, Oriented x3, Cooperative, No apparent distress HEENT: Atraumatic, PERRLA, EOMI, Normocephalic Oral: Moist Mucosa Neck: Supple, No JVD Lungs: Diminished, Normal air movement, No rhonchi, No wheeze, No rales Cardiovascular: Regular rate, Regular Rhythm, Normal S1, Normal S2, No murmurs Abdomen: Soft, Non Tender, Non-Distended, No Hepato-splenomegaly Extremities: No edema, Capillary Refill Less than 3 Seconds Skin: Boils in right armpit Musculoskeletal: No Tenderness to Palpation of Joints or Extremities Neurological: Motor Exam 5/5 strength throughout, Sensory exam intact to light touch and pain Psych/Mental Status: Normal Affect, Appropriate Assessment & Plan Assessment/Plan (1) Weakness: (2) Hidradenitis suppurativa: (3) Hidradenitis suppurativa of right axilla: PLAN: Plan 1. Generalized weakness with myelomalacia which is chronic ? MRI spinal series was evaluated by spine surgery and felt that he was at baseline, still shows his myelomalacia which there is nothing to do about ? PT/OT ? We will likely need SNF discharge given weakness 2. Hidradenitis suppurativa ? Stable ? Continuing doxycycline 3. HTN/HLD/CAD status post stent ? Blood pressures are stable ? Continue with his home medications ? Continue with antiplatelets 4. Seizure disorder ? Stable ? Continue with his home medic agent DVT: SCDs Charges/Coding Visit Charges Inpatient E&M: 43885 Subs Hosp L2
[2022-10-20 10:25] VITALS: BP 84/38; PULSE 60; RESP 18; TEMP 36.7; O2SAT 99
[2022-10-20] MEDS: Folic Acid 1 MG Tablet PO (10:46)
[2022-10-20] MEDS: Pyridoxine HCl 100 MG Tablet PO (10:46)
[2022-10-20] MEDS: Aspirin 81 MG TAB.CHEW PO (10:47)
[2022-10-20] MEDS: Clopidogrel Bisulfate 75 MG Tablet PO (10:47)
[2022-10-20] MEDS: Potassium Chloride Oral Tablet 20 MEQ PO (10:47)
[2022-10-20] MEDS: Enoxaparin 40 MG/0.4 ML Syringe SC (10:48)
[2022-10-20] MEDS: levETIRAcetam 500 MG Tablet PO ×2 (10:48→23:03)
[2022-10-20] MEDS: Nystatin Powder 15gm Bottle 1 APPLIC TOPICAL (10:48)
[2022-10-20] MEDS: Cholecalciferol (Vit D3) 125 MCG CAPSULE (5,000 UNITS) PO (10:49)
[2022-10-20] MEDS: 0.9% Saline Lock 10 ML Syringe IV ×2 (10:52→15:25)
[2022-10-20] MEDS: 0.9% Normal Saline 1,000 ML 999 ML IV (11:07)
--- NOTE | 2022-10-20 11:21 | PCM.CONS.B ---
Consult Date of Consult: 10/20/[address] Turner dictating a consultation on Valdo Ji. I saw Mr. Ji yesterday around 7:30 in the morning in the emergency room. Unfortunately he is a poor historian however I did the best I could with trying to get the history from him. He states that he had a's cervical surgery he does not know what levels he does not even know when it was actually done. He did states that he has had trouble walking since before the surgery. Apparently the reason they did the surgery was because he did have difficulty walking. He also complains of low back pain. He states that right now he cannot walk. He also has disability in both arms. He denies any bowel or bladder dysfunction. He had difficulty answered all my questions. This consultation has been dictated today instead of yesterday because as of late afternoon all the MRI scans that I ordered had not been done yet and I wanted to wait until I had those results before I dictated this report. On examination I noted that on the right side he has multi beat clonus. Babinski's were equivocal bilaterally. He can lift his legs off of the bed but just barely but he can keep his leg straight to do it. He is areflexic with no patella no Achilles reflexes bilaterally. He does have brachioradialis triceps and biceps reflexes bilaterally. He has some contractures of the left hand. He can lift both of his arms. Review of the MRI scan of the cervical spine with straits that he has significant myelomalacia at the site of surgery which was C3-4 and C4-5. When the fusion was done is still a mystery as he does not seem to remember. What ever it is at this level that there is very significant myelomalacia. The cord up does appear to be mostly decompressed. In addition he has a significant foraminal stenosis at C6-7 on the right side. Plain x-rays of the cervical spine demonstrate that he apparently had a corpectomy done of the C4 vertebra with a strut graft between C3 and C5. They had a plate between C3 and C5. Review of the MRI of the thoracic spine demonstrates no significant pressure on the spinal cord anywhere along the thoracic area. There is some question as to the possibility of a small small syrinx towards the lower end of the cord however I suspect that this is simply artifact. MRI scan of the lumbar spine demonstrate some degenerative changes with some facet arthritis and only very mild spinal stenosis perhaps it L3-4 but nothing dramatic. This patient is having difficulty with ambulation because of his longstanding myelomalacia of the cervical cord at the C4 level. That undoubtedly is the reason that he had the cervical surgery and corpectomy to begin with. At this point in time the only thing to do is try to rehab him as much as possible. The myelomalacia may gradually continue to deteriorate as time goes by. This is the end of consultation on Valdo Ji. This is Dr. Turner dictating.
--- NOTE | 2022-10-20 11:40 | CASEMGMT ---
RN?CM?GLASS SELECTOR?CM?to room to meet with patient for initial transition planning/care coordination?assessment.?RN?CM?introduced self and role at [facility].? Pt voices understanding and consents to?assessment?at this time.? Pt resting in bed in no distress at this time.? Pt is A/O at this time and answers all questions but was very vague and evasive. Care providers, pharmacy, and demographics verified/updated at this time. PCP: Dr Stubbs in [place]. Pt does not remember his 1st name. He states he was just in to see him a couple of months ago and he is still a patient w/him, although he is interested in switching PCP's and would like a list of PCP's in his area that are in-network w/his insurance. geoffrey Crawley/anderson planner scheduler, made aware. Specialists: Pt sees a team manager in [place] but does not remember his name. Preferred Pharmacy: Initially pt stated, Wherever I've gotten them before. Made aware both [facility] and [facility] have been listed in the past. He states he would like to get them @ [address] [facility] Insurance:[facility] Community Plan MINOR Prescription Benefit:?Yes Living Will/HPOA: Pt does not currently have LW/HCPOA and declines info at this time.?Pt states he has 12 children. He states he would want his son, Confucianism to be his POA, but he is not willing to complete AD while @ [facility]. Pt made aware if AD are not completed, that all 12 of his children would be involved in decision making but he still was not agreeable to completing AD. Brook HERNANDEZ, made aware. LNOK: Son, Confucianism. Pt has 11 other children. Living Arrangements: Lives w/Confucianism and Bhavani terryance in 2-story condo w/3 steps to enter. Pt states he had been independent w/ADL's and managed his own medication until just recently. Bhavani santoyo does home mgnt tasks. Transportation:?Pt states he does not drive. He states, Whoever has the keys drives. DME: ?States has the following DME:?shower chair, RTS, grab bars, walker, and W/C. ?Pt states no need for further DME at this time.? [facility]/SNF: No hx of SNF. Has had [facility] in the past. Pt states he does not want to go to a SNF, even if he is not able to take care of himself. He states does not want his son called to discuss discharge planning, stating, I want to go home and I will go home w/my son and dtr-in-law and if I get home and change my mind I will deal with it then. Pt states he would be agreeable to [facility] and requested [facility] list. geoffrey Crawley/anderson planner scheduler made aware. Pt wishes to return home and states has no concerns with going home at time of discharge.? Pt states does not smoke or drink ETOH.??CM?to follow for home oxygen needs and any further discharge planning/needs.? Pt voices no further concerns/needs at this time.? Advised pt to ask for?CM?if any further questions/concerns/needs arise.? Voices understanding. PLAN:??TBD. Pt states does not want to go to a SNF and wants to go home and agreeable to [facility], although per H/P and PN, pt having difficulty moving his arms and legs. PT/OT evals pending. Pt made aware PT/OT evals are pending and CM or SW would f/u with him once recommendations are made and he voices understanding. Constance BSN?RN?CM
[2022-10-20 12:26] VITALS: BP 92/56; PULSE 50; RESP 18; TEMP 36.8; O2SAT 100
[2022-10-20 17:42] VITALS: BP 92/49; PULSE 74; RESP 18; TEMP 36.9; O2SAT 100
[2022-10-20] MEDS: Atorvastatin Calcium 40 MG Tablet PO (23:02)
[2022-10-20] MEDS: traZODone 100 MG Tablet PO (23:02)
[2022-10-20] MEDS: QUEtiapine 100 MG Tablet PO (23:03)
[2022-10-20 23:05] VITALS: BP 98/66; PULSE 73; RESP 18; TEMP 36.6; O2SAT 97
[2022-10-21] MEDS: Acetaminophen 500 MG Tablet 1000 MG PO ×2 (05:07→21:38)
[2022-10-21 05:24] VITALS: BP 96/58; PULSE 68; RESP 16; TEMP 36.7; O2SAT 96
[2022-10-21 07:16] LABS: Absolute Lymphocyte Count 3.92 X10^3/uL (0.83-4.51); Absolute Neutrophil Count 2.6 X10^3/uL (2.0-7.7); Basophil# 0.02 X10^3/uL; Basophil% 0.3 % (0-1); Eosinophil# 0.05 X10^3/uL; Eosinophils% 0.7 % (0-5); Hematocrit 32.6 % (40-54); Hemoglobin 11.1 g/dL (13.0-16.5); Lymphocyte # 3.92 X10^3/ul (0.83-4.51); Lymphocyte % 55.8 % (19-41); Mean Corpuscular Hgb 33.1 pg (27.0-32.0); Mean Corpuscular Volume 97.3 fL (80-94); Mean Platelet Vol. 10.1 fl (6.2-12.0); Monocyte% 5.7 % (0-10); NRBC Flagged by Analyzer 0 % (0-5); Neutrophil # 2.62 X10^3/uL (2.7-7.7); Neutrophil % 37.2 % (47-70); Platelet Count 241 K/mm3 (150-450); RBC Distribution Width CV 13.6 % (11.6-14.6); Red Blood Count 3.35 M/mm3 (4.6-6.2)
[2022-10-21 07:33] LABS: Anion Gap 4 (5-15); BUN 8 mg/dL (7-18); BUN/Creat Ratio 9.9 RATIO (10-20); Calcium,Total 8.8 mg/dL (8.5-10.1); Chloride 113 mmol/L (98-107); Creatinine, Serum 0.81 mg/dL (0.70-1.30); EST Glomerular Filtration Rate 103 mL/min (>60); Est Glom Filt Rate - Afr Amer 125 mL/min (>60); Estimated Creatinine Clearance 103.29 ml/min; Glucose 85 mg/dL (74-106); Sodium Level 144 mmol/L (136-145)
[2022-10-21 07:39] VITALS: O2SAT 97
[2022-10-21 08:14] VITALS: BP 82/43; PULSE 61; RESP 16; TEMP 37; O2SAT 100
[2022-10-21] MEDS: Potassium Chloride Oral Tablet 20 MEQ PO (09:19)
[2022-10-21] MEDS: Enoxaparin 40 MG/0.4 ML Syringe SC (09:19)
[2022-10-21] MEDS: Cholecalciferol (Vit D3) 125 MCG CAPSULE (5,000 UNITS) PO (09:19)
[2022-10-21] MEDS: levETIRAcetam 500 MG Tablet PO ×2 (09:19→21:38)
[2022-10-21] MEDS: Nystatin Powder 15gm Bottle 1 APPLIC TOPICAL (09:20)
[2022-10-21] MEDS: Folic Acid 1 MG Tablet PO (09:20)
[2022-10-21] MEDS: Aspirin 81 MG TAB.CHEW PO (09:20)
[2022-10-21] MEDS: Clopidogrel Bisulfate 75 MG Tablet PO (09:20)
[2022-10-21] MEDS: Pyridoxine HCl 100 MG Tablet PO (09:20)
--- NOTE | 2022-10-21 09:43 | PCM.PN.HOSP ---
Subjective Subjective No issues overnight, continues to have episodes of hypotension more significantly in the morning Objective Data Objective Data Vital Signs: Vital Signs Temp Pulse Resp BP Pulse Ox O2 Del Method 98.6 F 61 16 82/43 L 100 Room Air 10/21/22 08:14 10/21/22 08:14 10/21/22 08:14 10/21/22 08:14 10/21/22 08:14 10/21/22 08:14 Oxygen Delivery Method Room Air Weight: 189 lb 13.088 oz Body Mass Index (BMI) 26.4 Intake & Output: Intake and Output for Last 24 Hours 10/20/22 10/21/22 10/22/22 03:59 03:59 03:59 Intake Total 560 / 560 2670 / 2670 Output Total 300 / 300 1400 / 1400 150 / 150 Balance 260 / 260 1270 / 1270 -150 / -150 Lab / Micro Data 10/21/22 06:20 10/21/22 06:20 Labs: Laboratory Results - last 24 hr 10/21/22 06:20: WBC 7.0, RBC 3.35 L, Hgb 11.1 L, Hct 32.6 L, MCV 97.3 H, MCH 33.1 H, MCHC 34.0, RDW Std Deviation 49.0 H, RDW Coeff of Subhash 13.6, Plt Count 241, MPV 10.1, Immature Gran % (Auto) 0.300, Neut % (Auto) 37.2 L, Lymph % (Auto) 55.8 H, [place] % (Auto) 5.7, Eos % (Auto) 0.7, Baso % (Auto) 0.3, Absolute Neuts (auto) 2.6, Absolute Lymphs (auto) 3.92, Nucleated RBC % 0, Sodium 144, Potassium 3.0 L, Chloride 113 H, Carbon Dioxide 27.0, Anion Gap 4 L, BUN 8, Creatinine 0.81, Estim Creat Clear Calc 103.29, Est GFR (MDRD) Af Amer 125, Est GFR (MDRD) Non-Af 103, BUN/Creatinine Ratio 9.9 L, Glucose 85, Calcium 8.8 Physical Exam Narrative General: Alert, Oriented x3, Cooperative, No apparent distress HEENT: Atraumatic, PERRLA, EOMI, Normocephalic Oral: Moist Mucosa Neck: Supple, No JVD Lungs: Diminished, Normal air movement, No rhonchi, No wheeze, No rales Cardiovascular: Regular rate, Regular Rhythm, Normal S1, Normal S2, No murmurs Abdomen: Soft, Non Tender, Non-Distended, No Hepato-splenomegaly Extremities: No edema, Capillary Refill Less than 3 Seconds Skin: Boils in right armpit Musculoskeletal: No Tenderness to Palpation of Joints or Extremities Neurological: Motor Exam 5/5 strength throughout, Sensory exam intact to light touch and pain Psych/Mental Status: Flat affect Assessment & Plan Assessment/Plan (1) Weakness: (2) Hidradenitis suppurativa: (3) Hidradenitis suppurativa of right axilla: PLAN: Plan 1. Generalized weakness with myelomalacia which is chronic ? MRI spinal series was evaluated by spine surgery and felt that he was at baseline, still shows his myelomalacia which there is nothing to do about ? PT/OT ? We will likely need SNF discharge given weakness, though he is refusing and says that his daughter can take care of him so we will discuss his situation with his daughter 2. Hidradenitis suppurativa ? Stable ? Continuing doxycycline 3. HTN/HLD/CAD status post stent ? Blood pressures have been low we will stop his home medications ? Continue with antiplatelets ? Unclear as to the etiology of his hypotension could be related to the hidradenitis though unlikely will obtain a UA and a chest x-ray and give him a 500 cc fluid bolus given his slight systolic dysfunction with an EF of 40 to 45% 4. Seizure disorder ? Stable ? Continue with his home medications DVT: Lovenox Charges/Coding Visit Charges Inpatient E&M: 49313 Subs Hosp L2
[2022-10-21] MEDS: Potassium Chloride Oral Tablet 20 MEQ 40 MEQ PO (10:53)
--- NOTE | 2022-10-21 12:10 | RAD_ITS ---
STUDY: X-RAY CHEST REASON FOR EXAM: Male, 62 years old. Sob TECHNIQUE: Single AP portable view of the chest. COMPARISON: Comparison is made with prior study dated August 21, 2022. FINDINGS: The lungs are clear and expanded. There is no demonstrated pleural abnormality. Normal size heart. Normal mediastinum and amanuel. Normal visualized pulmonary arteries. Normal visualized aortic arch and descending thoracic aorta. Normal visualized thoracic spine. Normal visualized ribs, clavicles, and shoulders. There is no demonstrated abnormality of the visualized soft tissue structures of the upper abdomen. RAD/Chest 1 View (Portable) IMPRESSION: Normal x-ray examination of the chest. Electronically Signed: Cas Jennings MD at 12:41 EDT ,
[2022-10-21 12:40] VITALS: BP 88/48
--- NOTE | 2022-10-21 13:57 | CASEMGMT ---
Addendum entered by Aga Manuel 10/21/22 15:27: JACQUES PAINTING into pt room, pt states he wants an agency close to home. [facility] and then [facility]. TC to [facility], spoke with Nevaeh, referral made, pt accepted for care on Monday. Pt made aware. Addendum entered by Aga Manuel 10/21/22 14:43: Provided pt with a PCP list and HHC list created by dc rehabilitation assistant. Pt to review and give top 3 preferences. Original Note: JACQUES PAINTING into pt room to discuss dc planning. Pt states he is agreeable to HHC but not a SNF. Pt did give permission to JACQUES PAINTING to speak with his son. TC to pt son Mandaen. He confirms that someone is always with pt. He is agreeable to C coming in as well.
[2022-10-21 14:14] VITALS: BP 102/60; PULSE 58; RESP 18; TEMP 36.6; O2SAT 100
[2022-10-21 14:20] LABS: Mucous, Urine 0 SEEN /hpf (<or=2+); Red Blood Cells-Urine 0 SEEN /hpf (0-5); Squamous Epithelial Cells - UA 0 SEEN /hpf (0-5)
[2022-10-21 14:27] LABS: Color, Urine Yellow (Yellow); Glucose, Dipstick Normal (Normal); Ketone-Dipstick Negative (Negative); Leukocyte Esterase-Dipstick 500 /ul (Negative); Nitrite-Dipstick Positive (Negative); Occult Blood-Urine Negative /ul (Negative); Protein-Dipstick Negative (Negative); Urine Bilirubin Dipstick Negative (Negative); Urine Clarity Clear (Clear); Urine Urobilinogen Normal (Normal)
--- NOTE | 2022-10-21 14:30 | CASEMGMT ---
Discharge Planning A list of home health providers including quality and resource use data and consistent with the patient?s preferred geographic region, medical needs, and insurance network was created in [employer]. This list was provided to the RN CM. Denisa Martin, Discharge Planning Asst..
--- NOTE | 2022-10-21 14:35 | CASEMGMT ---
Discharge Planning A list of primary care providers consistent with the patient?s preferred geographic region, medical needs, and insurance network was created from patients insurance website.. This list was provided to the RN CM. Denisa Martin, Discharge Planning Asst.
[2022-10-21 14:36] LABS: Bacteria 2+ /hpf (None Seen); White Blood Cells 5-10 SEEN /hpf (0-5)
[2022-10-21 17:20] VITALS: BP 115/69; PULSE 65
[2022-10-21] MEDS: QUEtiapine 100 MG Tablet PO (21:38)
[2022-10-21] MEDS: traZODone 100 MG Tablet PO (21:38)
[2022-10-21] MEDS: Atorvastatin Calcium 40 MG Tablet PO (21:38)
[2022-10-22] MEDS: Acetaminophen 500 MG Tablet 1000 MG PO ×3 (03:55→22:27)
[2022-10-22 03:56] VITALS: BP 94/58; PULSE 58; RESP 16; TEMP 37.1; O2SAT 96
[2022-10-22 06:54] LABS: Absolute Lymphocyte Count 3.58 X10^3/uL (0.83-4.51); Absolute Neutrophil Count 4.3 X10^3/uL (2.0-7.7); Basophil# 0.02 X10^3/uL; Basophil% 0.2 % (0-1); Eosinophil# 0.08 X10^3/uL; Eosinophils% 0.9 % (0-5); Hematocrit 32.2 % (40-54); Hemoglobin 10.5 g/dL (13.0-16.5); Lymphocyte # 3.58 X10^3/ul (0.83-4.51); Lymphocyte % 41.9 % (19-41); Mean Corp Hgb Conc 32.6 g/dL (32-36); Mean Corpuscular Hgb 32.4 pg (27.0-32.0); Mean Corpuscular Volume 99.4 fL (80-94); Mean Platelet Vol. 10.2 fl (6.2-12.0); Monocyte# 0.52 X10^3/uL; Monocyte% 6.1 % (0-10); NRBC Flagged by Analyzer 0 % (0-5); Neutrophil % 50.4 % (47-70); Platelet Count 214 K/mm3 (150-450); RBC Distribution Width CV 13.8 % (11.6-14.6); RBC Distribution Width SD 50.1 fl (35.1-43.9); Red Blood Count 3.24 M/mm3 (4.6-6.2); White Blood Count 8.5 K/mm3 (4.4-11.0)
[2022-10-22 07:15] LABS: Anion Gap 3 (5-15); BUN 6 mg/dL (7-18); BUN/Creat Ratio 8.1 RATIO (10-20); Calcium,Total 8.7 mg/dL (8.5-10.1); Chloride 116 mmol/L (98-107); Creatinine, Serum 0.74 mg/dL (0.70-1.30); EST Glomerular Filtration Rate 115 mL/min (>60); Est Glom Filt Rate - Afr Amer 139 mL/min (>60); Estimated Creatinine Clearance 113.06 ml/min; Glucose 76 mg/dL (74-106); Potassium 3.4 mmol/L (3.5-5.1); Sodium Level 145 mmol/L (136-145)
[2022-10-22 07:26] VITALS: O2SAT 96
[2022-10-22] MEDS: Folic Acid 1 MG Tablet PO (08:15)
[2022-10-22] MEDS: Aspirin 81 MG TAB.CHEW PO (08:15)
[2022-10-22] MEDS: Potassium Chloride Oral Tablet 20 MEQ PO (08:20)
[2022-10-22] MEDS: Nystatin Powder 15gm Bottle 1 APPLIC TOPICAL (10:35)
--- NOTE | 2022-10-22 10:48 | PN.HOSP_ITS ---
Subjective Subjective Well, pressures appear to be improved. UA is consistent with a UTI Objective Data Objective Data Vital Signs: Vital Signs Temp Pulse Resp BP Pulse Ox O2 Del Method 98.7 F 58 L 16 94/58 L 96 Room Air 10/22/22 03:56 10/22/22 03:56 10/22/22 03:56 10/22/22 03:56 10/22/22 07:26 10/22/22 07:26 Oxygen Delivery Method Room Air Weight: 189 lb 13.088 oz Body Mass Index (BMI) 26.4 Intake & Output: Intake and Output for Last 24 Hours 10/21/22 10/22/22 10/23/22 03:59 03:59 03:59 Intake Total 2670 / 2670 1570 / 1570 Output Total 1400 / 1400 900 / 900 300 / 300 Balance 1270 / 1270 670 / 670 -300 / -300 Lab / Micro Data 10/22/22 06:28 10/22/22 06:28 Labs: Laboratory Results - last 24 hr 10/21/22 12:43: Urine Color Yellow, Urine Clarity Clear, Urine pH 6.0, Ur Specific [place] 1.010, Urine Protein Negative, Urine Glucose (UA) Normal, Urine Ketones Negative, Urine Occult Blood Negative, Urine Nitrite Positive H, Urine Bilirubin Negative, Urine Urobilinogen Normal, Ur Leukocyte Esterase 500 H, Urine RBC 0 SEEN, Urine WBC 5-10 SEEN, Ur Squamous Epith Cells 0 SEEN, Urine Bacteria 2+, Urine Mucus 0 SEEN 10/22/22 06:28: WBC 8.5, RBC 3.24 L, Hgb 10.5 L, Hct 32.2 L, MCV 99.4 H, MCH 32.4 H, MCHC 32.6, RDW Std Deviation 50.1 H, RDW Coeff of Subhash 13.8, Plt Count 214, MPV 10.2, Immature Gran % (Auto) 0.500, Neut % (Auto) 50.4, Lymph % (Auto) 41.9 H, [place] % (Auto) 6.1, Eos % (Auto) 0.9, Baso % (Auto) 0.2, Absolute Neuts ( auto) 4.3, Absolute Lymphs (auto) 3.58, Nucleated RBC % 0, Sodium 145, Potassium 3.4 L, Chloride 116 H, Carbon Dioxide 26.0, Anion Gap 3 L, BUN 6 L, Creatinine 0.74, Estim Creat Clear Calc 113.06, Est GFR (MDRD) Af Amer 139, Est GFR (MDRD) Non-Af 115, BUN/Creatinine Ratio 8.1 L, Glucose 76, Calcium 8.7 Radiography Diagnostic Testing: Radiology Impression Chest X-Ray 10/21/22 12:10 IMPRESSION: Normal x-ray examination of the chest. Electronically Signed: Cas Jennings MD at 12:41 EDT , Physical Exam Narrative General: Alert, Oriented x3, agitated about still being here, No apparent distress HEENT: Atraumatic, PERRLA, EOMI, Normocephalic Oral: Moist Mucosa Neck: Supple, No JVD Lungs: Diminished, Normal air movement, No rhonchi, No wheeze, No rales Cardiovascular: Regular rate, Regular Rhythm, Normal S1, Normal S2, No murmurs Abdomen: Soft, Non Tender, Non-Distended, No Hepato-splenomegaly Extremities: No edema, Capillary Refill Less than 3 Seconds Skin: Boils in right armpit Musculoskeletal: No Tenderness to Palpation of Joints or Extremities Neurological: Motor Exam 5/5 strength throughout, Sensory exam intact to light touch and pain Psych/Mental Status: Flat affect Assessment & Plan Assessment/Plan (1) Weakness: (2) Hidradenitis suppurativa: (3) Hidradenitis suppurativa of right axilla: PLAN: Plan 1. Generalized weakness with myelomalacia which is chronic ? MRI spinal series was evaluated by spine surgery and felt that he was at baseline, still shows his myelomalacia which there is nothing to do about ? PT/OT ? He refuses SNF and family is willing to take him home with home health care 2. Hidradenitis suppurativa/UTI ? Stable ? Continuing doxycycline ? Urine cultures pending we will adjust antibiotics once sensitivities are back if possible given his doxycycline 3. HTN/HLD/CAD status post stent ? Blood pressures have been low we will stop his home medications ? Continue with antiplatelets ? Hypotension was evaluated with manual blood pressure yesterday and the manual blood pressures disagreed with the machine blood pressure so we will discontinue to monitor 4. Seizure disorder ? Stable ? Continue with his home medications DVT: Lovenox Charges/Coding Visit Charges Inpatient E&M: 98467 Subs Hosp L2
[2022-10-22] MEDS: Potassium Chloride Oral Tablet 20 MEQ 40 MEQ PO (16:45)
[2022-10-22] MEDS: oxyCODONE 5 MG Tablet PO (19:37)
[2022-10-22 20:00] VITALS: BP 107/97; PULSE 61; RESP 18; TEMP 36.4; O2SAT 100
[2022-10-22] MEDS: levETIRAcetam 500 MG Tablet PO (22:27)
[2022-10-22] MEDS: traZODone 100 MG Tablet PO (22:27)
[2022-10-22] MEDS: QUEtiapine 100 MG Tablet PO (22:27)
[2022-10-22] MEDS: Atorvastatin Calcium 40 MG Tablet PO (22:27)
[2022-10-23 03:00] VITALS: BP 94/45; PULSE 61; RESP 18; TEMP 36.9; O2SAT 98
[2022-10-23] MEDS: Acetaminophen 500 MG Tablet 1000 MG PO ×3 (05:32→21:11)
[2022-10-23 05:59] LABS: Anion Gap 8 (5-15); BUN 7 mg/dL (7-18); BUN/Creat Ratio 9.4 RATIO (10-20); Calcium,Total 8.6 mg/dL (8.5-10.1); Chloride 114 mmol/L (98-107); Creatinine, Serum 0.74 mg/dL (0.70-1.30); EST Glomerular Filtration Rate 114 mL/min (>60); Est Glom Filt Rate - Afr Amer 138 mL/min (>60); Estimated Creatinine Clearance 113.06 ml/min; Glucose 80 mg/dL (74-106); Potassium 3.7 mmol/L (3.5-5.1); Sodium Level 148 mmol/L (136-145)
[2022-10-23 07:29] VITALS: O2SAT 96
--- NOTE | 2022-10-23 09:24 | PN.HOSP_ITS ---
Subjective Subjective No overnight, was little bit agitated yesterday when he wanted to go home, I discussed with him waiting for the urine culture to be able to provide an appropriate antibiotic to cover both his hidradenitis as well as his UTI for possible. Objective Data Objective Data Vital Signs: Vital Signs Temp Pulse Resp BP Pulse Ox O2 Del Method 98.5 F 61 18 94/45 L 96 Room Air 10/23/22 03:00 10/23/22 03:00 10/23/22 03:00 10/23/22 03:00 10/23/22 07:29 10/23/22 07:29 Oxygen Delivery Method Room Air Weight: 189 lb 13.088 oz Body Mass Index (BMI) 26.4 Intake & Output: Intake and Output for Last 24 Hours 10/22/22 10/23/22 10/24/22 03:59 03:59 03:59 Intake Total 1570 / 1570 1234 / 1234 200 / 200 Output Total 900 / 900 300 / 300 Balance 670 / 670 934 / 934 200 / 200 Lab / Micro Data 10/22/22 06:28 10/23/22 04:40 Labs: Laboratory Results - last 24 hr 10/23/22 04:40: Sodium 148 H, Potassium 3.7, Chloride 114 H, Carbon Dioxide 26.0, Anion Gap 8, BUN 7, Creatinine 0.74, Estim Creat Clear Calc 113.06, Est G FR (MDRD) Af Amer 138, Est GFR (MDRD) Non-Af 114, BUN/Creatinine Ratio 9.4 L, Glucose 80, Calcium 8.6 Physical Exam Narrative General: Alert, Oriented x3, agitated about still being here, No apparent distress HEENT: Atraumatic, PERRLA, EOMI, Normocephalic Oral: Moist Mucosa Neck: Supple, No JVD Lungs: Diminished, Normal air movement, No rhonchi, No wheeze, No rales Cardiovascular: Regular rate, Regular Rhythm, Normal S1, Normal S2, No murmurs Abdomen: Soft, Non Tender, Non-Distended, No Hepato-splenomegaly Extremities: No edema, Capillary Refill Less than 3 Seconds Skin: Boils in right armpit Musculoskeletal: No Tenderness to Palpation of Joints or Extremities Neurological: Motor Exam 5/5 strength throughout, Sensory exam intact to light touch and pain Psych/Mental Status: Flat affect Assessment & Plan Assessment/Plan (1) Weakness: (2) Hidradenitis suppurativa: (3) Hidradenitis suppurativa of right axilla: PLAN: Plan 1. Generalized weakness with myelomalacia which is chronic ? MRI spinal series was evaluated by spine surgery and felt that he was at baseline, still shows his myelomalacia which there is nothing to do about ? PT/OT ? He refuses SNF and family is willing to take him home with home health care 2. Hidradenitis suppurativa/UTI ? Stable ? Continuing doxycycline ? Urine cultures pending we will adjust antibiotics once sensitivities are back if possible given his doxycycline 3. HTN/HLD/CAD status post stent ? Blood pressures have been low we will stop his home medications ? Continue with antiplatelets ? No further episodes with hypotension. He does have better blood pressures when taken manually 4. Seizure disorder ? Stable ? Continue with his home medications DVT: Lovenox Charges/Coding Visit Charges Inpatient E&M: 40598 Subs Hosp L2
[2022-10-23] MEDS: Folic Acid 1 MG Tablet PO (09:39)
[2022-10-23] MEDS: Aspirin 81 MG TAB.CHEW PO (09:40)
[2022-10-23] MEDS: levETIRAcetam 500 MG Tablet PO ×2 (09:40→21:11)
[2022-10-23] MEDS: Nystatin Powder 15gm Bottle 1 APPLIC TOPICAL (09:41)
[2022-10-23] MEDS: Potassium Chloride Oral Tablet 20 MEQ PO (09:44)
[2022-10-23] MEDS: Clopidogrel Bisulfate 75 MG Tablet PO (09:44)
[2022-10-23 10:00] VITALS: BP 107/58; PULSE 64; RESP 18; TEMP 36.9; O2SAT 98
[2022-10-23 20:38] VITALS: BP 107/57; PULSE 61; RESP 16; TEMP 37.2; O2SAT 99
[2022-10-23] MEDS: Atorvastatin Calcium 40 MG Tablet PO (21:11)
[2022-10-23] MEDS: traZODone 100 MG Tablet PO (21:11)
[2022-10-23] MEDS: QUEtiapine 100 MG Tablet PO (21:11)
[2022-10-24] MEDS: oxyCODONE 5 MG Tablet PO (00:20)
[2022-10-24 02:37] VITALS: BP 98/59; PULSE 59; RESP 16; TEMP 36.6; O2SAT 99
[2022-10-24] MEDS: Acetaminophen 500 MG Tablet 1000 MG PO (05:58)
[2022-10-24 06:55] LABS: Absolute Lymphocyte Count 3.22 X10^3/uL (0.83-4.51); Absolute Neutrophil Count 2.7 X10^3/uL (2.0-7.7); Basophil# 0.02 X10^3/uL; Basophil% 0.3 % (0-1); Eosinophil# 0.08 X10^3/uL; Eosinophils% 1.2 % (0-5); Hematocrit 31.4 % (40-54); Hemoglobin 10.4 g/dL (13.0-16.5); Lymphocyte # 3.22 X10^3/ul (0.83-4.51); Lymphocyte % 49.8 % (19-41); Mean Corp Hgb Conc 33.1 g/dL (32-36); Mean Corpuscular Hgb 32.5 pg (27.0-32.0); Mean Corpuscular Volume 98.1 fL (80-94); Monocyte% 6.2 % (0-10); NRBC Flagged by Analyzer 0 % (0-5); Neutrophil # 2.74 X10^3/uL (2.7-7.7); Neutrophil % 42.3 % (47-70); Platelet Count 204 K/mm3 (150-450); RBC Distribution Width CV 13.8 % (11.6-14.6); RBC Distribution Width SD 50.1 fl (35.1-43.9); White Blood Count 6.5 K/mm3 (4.4-11.0)
[2022-10-24 07:21] LABS: Anion Gap 1 (5-15); BUN 8 mg/dL (7-18); BUN/Creat Ratio 10.6 RATIO (10-20); Calcium,Total 8.6 mg/dL (8.5-10.1); Chloride 115 mmol/L (98-107); Creatinine, Serum 0.76 mg/dL (0.70-1.30); EST Glomerular Filtration Rate 112 mL/min (>60); Est Glom Filt Rate - Afr Amer 135 mL/min (>60); Estimated Creatinine Clearance 110.09 ml/min; Glucose 78 mg/dL (74-106); Potassium 3.7 mmol/L (3.5-5.1); Sodium Level 143 mmol/L (136-145)
--- NOTE | 2022-10-24 07:51 | PCM.PN.HOSP ---
Reason for Visit Reason for Visit: Diagnoses Hidradenitis suppurativa (10/19/22) Weakness (10/19/22) Subjective Subjective Patient is a 62-year-old gentleman with history of myelomalacia admitted with progressive generalized weakness Objective Data Objective Data Vital Signs: Vital Signs Temp Pulse Resp BP Pulse Ox O2 Del Method 97.8 F 59 L 16 98/59 L 99 Room Air 10/24/22 02:37 10/24/22 02:37 10/24/22 02:37 10/24/22 02:37 10/24/22 02:37 10/24/22 02:37 Oxygen Delivery Method Room Air Weight: 86.1 kg Body Mass Index (BMI) 26.4 Intake & Output: Intake and Output for Last 24 Hours 10/22/22 10/23/22 10/24/22 23:59 23:59 23:59 Intake Total 1234 / 1234 1520 / 1520 Output Total 300 / 300 400 / 650 600 / 600 Balance 934 / 934 1120 / 870 -600 / -600 Lab / Micro Data 10/24/22 06:46 10/24/22 06:46 Labs: Laboratory Results - last 24 hr 10/24/22 06:46: WBC 6.5, RBC 3.20 L, Hgb 10.4 L, Hct 31.4 L, MCV 98.1 H, MCH 32.5 H, MCHC 33.1, RDW Std Deviation 50.1 H, RDW Coeff of Subhash 13.8, Plt Count 204, MPV 10.0, Immature Gran % (Auto) 0.200, Neut % (Auto) 42.3 L, Lymph % (Auto) 49.8 H, [place] % (Auto) 6.2, Eos % (Auto) 1.2, Baso % (Auto) 0.3, Absolute Neuts (auto) 2.7, Absolute Lymphs (auto) 3.22, Nucleated RBC % 0, Sodium 143, Potassium 3.7, Chloride 115 H, Carbon Dioxide 27.0, Anion Gap 1 L, BUN 8, Creatinine 0.76, Estim Creat Clear Calc 110.09, Est GFR (MDRD) Af Amer 135, Est GFR (MDRD) Non-Af 112, BUN/Creatinine Ratio 10.6, Glucose 78, Calcium 8.6 Micro: Microbiology 10/21/22 17:20 Urine, Clean Catch Urine Culture - Preliminary Gram negative shanika Physical Exam Narrative GENERAL: cooperative HEENT: Atraumatic; normocephalic EYES; Anicteric, Normal Conjunctiva NECK; supple, normal thyroid, RESPIRATORY: Diminished to auscultation CARDIOVASCULAR: Regular S1 S2, GI: soft, normoactive bowel sounds, : No Renal angle tenderness; EXTREMITIES: No edema, no clubbing, MUSCULOSKELETAL: no muscle wasting NEURO: Awake; no lateralizing signs. SKIN: Areas of induration consistent with hidradenitis suppurativa right armpit PSYCH; Flat affect Assessment & Plan Assessment/Plan (1) Weakness: (2) Hidradenitis suppurativa: (3) Hidradenitis suppurativa of right axilla: PLAN: Plan Patient is a 62-year-old gentleman with history of myelomalacia admitted with progressive generalized weakness 1. Physical deconditioning ? In the context of myelomalacia MRI evaluated by Dr. Turner with spine surgery recommended no treatment at this point. Requested for PT OT eval SNF was recommended patient refuses and plan is for patient to be discharged home with home health 2. Hidradenitis suppurativa ? Involving the right armpits patient is on doxycycline 3. Acute cystitis urine -culture so far positive for gram-negative rods, final sensitivities to follow 4. Hypertension - Blood pressure controlled, home medications continued with dose adjustment as needed 5. Dyslipidemia -Patient is on statin therapy, continued at home dose 6. Coronary artery disease patient ? Patient is on guideline directed medical therapy 7. Seizure disorder ? Continue with his home medications 8. DVT -SC Lovenox Time spent in the patient's overall evaluation,decision-making process, review of diagnostic data, adjustment of management, discussion with other providers, nursing nursing and ancillary staff involved in patient's care documentation 35 Minutes Charges/Coding Visit Charges Inpatient E&M: 47470 Subs Hosp L2
[2022-10-24 09:09] VITALS: BP 96/51; PULSE 62; RESP 18; TEMP 36.6; O2SAT 100
[2022-10-24] MEDS: Cholecalciferol (Vit D3) 125 MCG CAPSULE (5,000 UNITS) PO (09:21)
[2022-10-24] MEDS: Aspirin 81 MG TAB.CHEW PO (09:21)
[2022-10-24] MEDS: Potassium Chloride Oral Tablet 20 MEQ PO (09:21)
[2022-10-24] MEDS: Enoxaparin 40 MG/0.4 ML Syringe SC (09:21)
[2022-10-24] MEDS: Nystatin Powder 15gm Bottle 1 APPLIC TOPICAL (09:21)
[2022-10-24] MEDS: Pyridoxine HCl 100 MG Tablet PO (09:21)
[2022-10-24] MEDS: Clopidogrel Bisulfate 75 MG Tablet PO (09:21)
[2022-10-24] MEDS: Folic Acid 1 MG Tablet PO (09:21)
[2022-10-24] MEDS: levETIRAcetam 500 MG Tablet PO (09:21)
--- NOTE | 2022-10-24 13:18 | DS.PCM_ITS ---
Providers Date of Admission: 10/19/22 Date of Discharge: 10/24/22 Primary Care Physician: Tracey Primary Care Phys Consultations 10/19/22 18:45 Consult: Orthopedics Routine Consulting Provider: Aj Turner Reason for Consult: cervical spinal stenosis EMERGENT Consult: No MD Notified: Yes Date Notified: 10/19/22 Time Notified: 06:30 Method of Notification: ED Physician Initiated Reason For Visit: STENOSIS OF CERVICAL SPINE Diagnosis Discharge Diagnosis (1) Weakness: Status: Acute Code(s): R53.1 - Weakness (2) Hidradenitis suppurativa: Status: Acute Code(s): L73.2 - Hidradenitis suppurativa (3) Hidradenitis suppurativa of right axilla: Status: Acute Code(s): L73.2 - Hidradenitis suppurativa Plan Patient is a 62-year-old gentleman with history of myelomalacia admitted with progressive generalized weakness 1. Physical deconditioning ? In the context of myelomalacia MRI evaluated by Dr. Turner with spine surgery recommended no treatment at this point. Requested for PT OT eval SNF was recommended patient refuses and plan is for patient to be discharged home with home health 2. Hidradenitis suppurativa ? Involving the right armpits patient is on doxycycline 3. Acute cystitis u with E. coli ? Patient was discharged on cefdinir 4. Hypertension - Blood pressure controlled, home medications continued with dose adjustment as needed 5. Dyslipidemia -Patient is on statin therapy, continued at home dose 6. Coronary artery disease patient ? Patient is on guideline directed medical therapy 7. Seizure disorder ? Continue with his home medications 8. DVT -SC Lovenox Time spent in the patient's overall evaluation,decision-making process, review of diagnostic data, adjustment of management, discussion with other providers, nursing nursing and ancillary staff involved in patient's care documentation 35 Minutes Medications at Discharge Home Medications cholecalciferol (vitamin D3) 125 mcg (5,000 unit) capsule 10,000 unit PO DAILY 04/12/22 folic acid 1 mg tablet 1 mg PO DAILY #30 tabs 04/12/22 pyridoxine (vitamin B6) 100 mg tablet 100 mg PO DAILY #30 tabs 04/12/22 nystatin 100,000 unit/gram topical powder (Nyamyc) 100,000 unit topical DAILY 04/27/22 aspirin 81 mg chewable tablet 81 mg PO BREAKFAST #0 tabs 04/28/22 atorvastatin 40 mg tablet 40 mg PO DAILY #30 tabs 04/28/22 clopidogrel 75 mg tablet 75 mg PO DAILY #30 tabs 04/28/22 levetiracetam 500 mg tablet 500 mg PO BID #60 tabs 04/28/22 nitroglycerin 0.4 mg sublingual tablet 0.4 mg sublingual PRN PRN CP #10 tabs 04/28/22 potassium chloride 20 mEq tablet,extended release(part/cryst) 20 meq PO DAILY #30 tabs 04/28/22 docusate sodium 100 mg capsule (Colace) 100 mg PO BID PRN constipation #30 caps 05/17/22 hydrocortisone acetate 25 mg rectal suppository (Anusol-HC) 25 mg AR DAILY 14 days #24 ea 05/17/22 quetiapine 100 mg tablet 100 mg PO QHS 05/17/22 trazodone 100 mg tablet 100 mg PO QHS 05/17/22 amlodipine 2.5 mg tablet 2.5 mg PO DAILY 30 days #30 tabs 08/23/22 carvedilol 6.25 mg tablet 3.125 mg (1/2 x 6.25 mg) PO BID 30 days #60 tabs 08/23/22 lisinopril 2.5 mg tablet 2.5 mg PO DAILY 30 days #30 tabs 08/23/22 cefdinir 300 mg capsule 300 mg PO BID #10 caps 10/24/22 Hospital Course Summary of Care Provided Minutes Spent on Discharge: 35 Physical Exam Narrative GENERAL: cooperative HEENT: Atraumatic; normocephalic EYES; Anicteric, Normal Conjunctiva NECK; supple, normal thyroid, RESPIRATORY: Diminished to auscultation CARDIOVASCULAR: Regular S1 S2, GI: soft, normoactive bowel sounds, : No Renal angle tenderness; EXTREMITIES: No edema, no clubbing, MUSCULOSKELETAL: no muscle wasting NEURO: Awake; no lateralizing signs. SKIN: Areas of induration consistent with hidradenitis suppurativa right armpit PSYCH; Flat affect Weight / BMI Weight Weight: 86.1 kg Body Mass Index (BMI) 26.4 ABG / Lab / Microbiology Data 10/24/22 06:46 10/24/22 06:46 Laboratory: Laboratory Results - last 24 hr 10/24/22 06:46: WBC 6.5, RBC 3.20 L, Hgb 10.4 L, Hct 31.4 L, MCV 98.1 H, MCH 32.5 H, MCHC 33.1, RDW Std Deviation 50.1 H, RDW Coeff of Subhash 13.8, Plt Count 204, MPV 10.0, Immature Gran % (Auto) 0.200, Neut % (Auto) 42.3 L, Lymph % (Auto) 49.8 H, Glascock % (Auto) 6.2, Eos % (Auto) 1.2, Baso % (Auto) 0.3, Absolute Neuts (auto) 2.7, Absolute Lymphs (auto) 3.22, Nucleated RBC % 0, Sodium 143, Potassium 3.7, Chloride 115 H, Carbon Dioxide 27.0, Anion Gap 1 L, BUN 8, Creatinine 0.76, Estim Creat Clear Calc 110.09, Est GFR (MDRD) Af Amer 135, Est GFR (MDRD) Non-Af 112, BUN/Creatinine Ratio 10.6, Glucose 78, Calcium 8.6 Microbiology: Microbiology 10/21/22 17:20 Urine, Clean Catch Urine Culture - Final Escherichia coli D/C Instructions Discharge Diet: No restrictions Discharge Activity: Return to Normal Activity Call your doctor if you observe: Fever of 101 or Higher, Shortness of breath, Fainting spells and Chest pain Meaningful Use Info Meaningful Use Diagnoses (Choose all that apply): None applicable Discharge Plan Admission Admit Date/Time: 10/19/22 04:46 Attending Provider: Ezequiel Ferreira Primary Care Provider: Care Physician,No Primary Consulting Providers: Amos Olvera; Aj Turner; Tiera Capps; hPill Ortiz Discharge Orders/Prescriptions Prescriptions: New cefdinir 300 mg capsule 300 mg PO BID Qty: 10 0RF Continued cholecalciferol (vitamin D3) 125 mcg (5,000 unit) capsule 10,000 unit PO DAILY Patient Comments: take 2 capsules by mouth once daily folic acid 1 mg tablet 1 mg PO DAILY Qty: 30 0RF pyridoxine (vitamin B6) 100 mg tablet 100 mg PO DAILY Qty: 30 0RF nystatin [Nyamyc] 100,000 unit/gram powder 100,000 unit TOPICAL DAILY levetiracetam 500 mg Tablet 500 mg PO BID Qty: 60 0RF aspirin 81 mg Tablet,Chewable 81 mg PO BREAKFAST Qty: 0 0RF atorvastatin 40 mg tablet 40 mg PO DAILY Qty: 30 0RF clopidogrel 75 mg tablet 75 mg PO DAILY Qty: 30 0RF potassium chloride 20 mEq tablet,ER particles/crystals 20 meq PO DAILY Qty: 30 0RF Patient Comments: take 1 tablet by mouth once daily nitroglycerin 0.4 mg tablet, sublingual 0.4 mg sublingual PRN PRN (Reason: CP) Qty: 10 0RF quetiapine 100 mg Tablet 100 mg PO QHS trazodone 100 mg Tablet 100 mg PO QHS docusate sodium [Colace] 100 mg capsule 100 mg PO BID PRN (Reason: constipation) Qty: 30 0RF hydrocortisone acetate [Anusol-HC] 25 mg suppository 25 mg AR DAILY 14 Days Qty: 24 1RF carvedilol 6.25 mg tablet 3.125 mg PO BID 30 Days Qty: 60 0RF Rx Instructions: must administer with a meal/food amlodipine 2.5 mg Tablet 2.5 mg PO DAILY 30 Days Qty: 30 0RF lisinopril 2.5 mg Tablet 2.5 mg PO DAILY 30 Days Qty: 30 0RF Referrals / Follow Up: Care Physician,No Primary [Primary Care Provider] - Within 2 Weeks Disposition Disposition (needs filled in before D/C Order can be placed): Home, Self Care Charges/Coding Visit Charges Inpatient E&M: 69728 Disch Hosp >30min
--- NOTE | 2022-10-24 13:35 | PHA.DC.MC.R ---
Pharmacy [facility] has performed discharge medication reconciliation and counseling for this patient. The patient's discharge medication list was reviewed for discrepancies and discrepancies were resolved. The patient was counseled on the following discharge medications and changes in medications for homegoing were reviewed. The Reason for Use, instructions for use, and potential side effects were reviewed for all new medications. The patient's questions regarding all of their medications were answered. 1. Cefdinir 300 mg PO BID The patient was able to verbally demonstrate an understanding of their discharge medications. The patient was counselled on new medication by pharmacy helper Madhuri Gray at Discharge Home Medications cholecalciferol (vitamin D3) 125 mcg (5,000 unit) capsule 10,000 unit PO DAILY 04/12/22 folic acid 1 mg tablet 1 mg PO DAILY #30 tabs 04/12/22 pyridoxine (vitamin B6) 100 mg tablet 100 mg PO DAILY #30 tabs 04/12/22 nystatin 100,000 unit/gram topical powder (Nyamyc) 100,000 unit topical DAILY 04/27/22 aspirin 81 mg chewable tablet 81 mg PO BREAKFAST #0 tabs 04/28/22 atorvastatin 40 mg tablet 40 mg PO DAILY #30 tabs 04/28/22 clopidogrel 75 mg tablet 75 mg PO DAILY #30 tabs 04/28/22 levetiracetam 500 mg tablet 500 mg PO BID #60 tabs 04/28/22 nitroglycerin 0.4 mg sublingual tablet 0.4 mg sublingual PRN PRN CP #10 tabs 04/28/22 potassium chloride 20 mEq tablet,extended release(part/cryst) 20 meq PO DAILY #30 tabs 04/28/22 docusate sodium 100 mg capsule (Colace) 100 mg PO BID PRN constipation #30 caps 05/17/22 hydrocortisone acetate 25 mg rectal suppository (Anusol-HC) 25 mg UT DAILY 14 days #24 ea 05/17/22 quetiapine 100 mg tablet 100 mg PO QHS 05/17/22 trazodone 100 mg tablet 100 mg PO QHS 05/17/22 amlodipine 2.5 mg tablet 2.5 mg PO DAILY 30 days #30 tabs 08/23/22 carvedilol 6.25 mg tablet 3.125 mg (1/2 x 6.25 mg) PO BID 30 days #60 tabs 08/23/22 lisinopril 2.5 mg tablet 2.5 mg PO DAILY 30 days #30 tabs 08/23/22 cefdinir 300 mg capsule 300 mg PO BID #10 caps 10/24/22
[2022-10-24 14:42] VITALS: BP 112/64; PULSE 56; RESP 18; TEMP 36.8; O2SAT 100
--- NOTE | 2022-10-24 15:19 | NURSING ---
Called son and informed him that his father was ready to be picked up. However he said he is working and cant get here till 5 or 5:30pm. Pt is aware.
== END 2022-10-24 18:19 | disposition home health service (06) | DRG 40 ==
LOC: ED 04:48 → MS3 06:47
PROVIDERS: Family Medicine; Internal Medicine; Admitting Provider Hospitalist; Emergency Provider Emergency Medicine; Visit Provider Internal Medicine
DX: G95.89 Other specified diseases of spinal cord (principal); G40.909 Epilepsy, unspecified, not intractable, without status epilepticus; E78.5 Hyperlipidemia, unspecified; I10 Essential (primary) hypertension; M48.02 Spinal stenosis, cervical region; L73.2 Hidradenitis suppurativa; I25.10 Atherosclerotic heart disease of native coronary artery without angina pectoris; N30.00 Acute cystitis without hematuria; B96.20 Unspecified Escherichia coli [E. coli] as the cause of diseases classified elsewhere; Z98.1 Arthrodesis status; Z95.5 Presence of coronary angioplasty implant and graft; Z79.02 Long term (current) use of antithrombotics/antiplatelets; Z79.82 Long term (current) use of aspirin; Z79.899 Other long term (current) drug therapy; Z86.73 Personal history of transient ischemic attack (TIA), and cerebral infarction without residual deficits; Z87.891 Personal history of nicotine dependence
CPT/HCPCS: 36415; 71045; 72040; 72100; 72125; 72141; 72146; 72148; 80048; 80053; 81001; 83735; 84100; 84443; 85025; 87077; 87086; 87088; 87186; 96361; 96365; 96366; 96372; 96375; 97162; 97166; 97535; 99221; 99285; J7030; J7040; J7050; A4216; G0378